=== PATIENT | female | born 1945 | race Caucasian/White ===

== ENCOUNTER 2017-01-26 04:13 | Inpatient (IN) ==
--- NOTE | 2017-01-26 04:42 | Emergency Department Note ---
Neuro HPI - General Chief Complaint: Neuro Symptoms/Deficit Stated Complaint: stroke like symptoms Time Seen by Provider: 01/26/17 04:26 Source: family Mode of arrival: ambulatory Limitations: no limitations - History of Present Illness HPI Narrative: 71-year-old female with a 2 and half days history of neurologic deficit. Started 2-1/2 days ago with generalized weakness such that she could not get up ; also urinary incontinence. Her significant other called her doctor, Dr. Mini Man at [facility] and discussed her symptoms - they felt this was not consistent with a stroke but could be flu so Tamiflu was called out. At that time she wasn't having a focal deficit but just generalized weakness. He continued to take care of her, getting her in and out of bed, and she gradually improved such that yesterday evening she was walking again with a walker. However this morning at 3 AM she woke up shivering asking for blankets. She was visually hallucinating and continues. And so he brought her in for further evaluation. I do not have a complete med list but patient says she is not on a blood thinner - Related Data Home Medications: Home Medications Medication Instructions Recorded Confirmed Atenolol [Tenormin] 100 mg PO QDAY 09/08/15 09/08/15 Fluoxetine Unknown Dose 09/08/15 Furosemide Unknown Dose 09/08/15 Gabapentin [Neurontin] 500 mg PO Q8 09/08/15 09/08/15 Levothyroxine [Synthroid] 75 mcg PO DAILY 09/08/15 09/08/15 Omeprazole [PriLOSEC] 20 mg PO ACB 09/08/15 09/08/15 Allergies/Adverse Reactions: Allergies Allergy/AdvReac Type Severity Reaction Status Date / Time No Known Drug Allergies Allergy Verified 09/16/16 12:44 Review of Systems All systems ED: reviewed and negative except as stated. Past Medical History - Past Medical History Attestation: Yes: The following information was validated with the patient. Medical history: Reports: GERD, hypertension, thyroid disease Surgical history ED: Reports: appendectomy - Social History smoking status: Never smoker Physical Exam No acute distress resting comfortably. Normocephalic atraumatic. Conjunctiva clear sclerae white and anicteric. Pupils are equal round reactive to light and accommodation. Extraocular movements are intact. I did test this twice the first time she failed, and could not follow commands neglecting her left. However on repeat check she was able to do this. No nystagmus on either try. No nasal discharge or congestion. Oropharynx is pink and moist. Top dentures. I don't hear any dysarthria except for secondary to dentures. She may have a slight left facial droop but this is equivocal. Neck is supple without lymphadenopathy or thyromegaly. No carotid bruit. Heart is regular rate and rhythm no murmurs appreciated. Lungs are clear to auscultation bilaterally without wheezes rales rhonchi or respiratory distress. Abdomen soft nontender nondistended. No peritoneal signs or guarding. No pedal edema. +2 radial pulse. Alert and oriented to person but not time- she cannot tell me the month or date correctly the first time I checked however on repeat exam she gets it right. She does know who the president is. She is hallucinating here- seeing some things that aren't there. Additionally there are a few examples of her talking nonsensically. She is grossly weak but she is able lift both legs at the hip and knee- left side weaker than the right. She does have some ataxia, once again left worse than right. Finger-nose is worse on the left but both sides are generally normal. Bilateral shear setter are weak left worse than right. Nursing staff reports an NIH of 7 - General Limitations: no limitations Course Vital Signs Temperature 98.1 F 01/26/17 04:14 Pulse Rate 80 01/26/17 04:14 Respiratory Rate 17 01/26/17 04:14 Pulse Oximetry (%) 90 01/26/17 04:14 Temperature 98.1 F 01/26/17 04:14 Pulse Rate 78 01/26/17 06:05 Respiratory Rate 26 H 01/26/17 06:05 Blood Pressure 106/47 01/26/17 06:05 Pulse Oximetry (%) 95 01/26/17 06:05 Neuro Symptoms/Deficit - Lab Data Lab results reviewed: Yes I reviewed the patient's lab results. Result diagrams: 01/26/17 04:30 01/26/17 04:36 Lab Results 01/26/17 01/26/17 01/26/17 Range/Units 04:30 04:30 04:30 WBC 14.5 H (4.5-11.0) K/mcL RBC 3.84 L (4.00-5.20) M/mcL Hgb 12.7 (12.0-15.0) g/dL Hct 38.1 (36.0-48.0) % MCV 99.2 (80.0-100.0) fL MCH 33.0 (26.0-34.0) pg MCHC 33.3 (31.0-36.0) g/dL RDW 14.8 H (11.5-14.5) % Plt Count 268 (140-440) K/mcL MPV 7.8 (7.4-10.4) fL Gran % 93.2 H (38.0-78.0) % Lymph % (Auto) 3.1 L (15.5-49.0) % Story % (Auto) 3.3 (1.0-12.0) % Eos % (Auto) 0.4 (0.0-7.0) % Baso % (Auto) 0 (0.0-2.0) % Gran # 13.5 H (1.8-8.0) K/mcL Lymph # 0.5 L (1.5-4.8) K/mcL Story # 0.5 (0.1-0.9) K/mcL Eos # 0.1 (0.0-0.7) K/mcL Baso # 0 (0.0-0.3) K/mcL POC PT (11.9-14.5) sec PT 16.3 H (11.9-14.5) sec POC INR (0.9-1.2) INR 1.3 H (0.9-1.1) APTT 45 H (20-37) sec VBG Lactic Acid (0.5-2.2) mmol/L Sodium Not Reportable Potassium Not Reportable Chloride Not Reportable Carbon Dioxide Not Reportable Anion Gap Not Reportable BUN Not Reportable Creatinine Not Reportable GFR Calculation Not Reportable Glucose TNP Calcium Not Reportable Total Bilirubin (0.0-1.0) mg/dL AST (0-37) U/l ALT (0-40) U/l Alkaline Phosphatase (39-117) U/L Ammonia (11-51) mcmol/L Total Protein (5.9-8.4) gm/dL Albumin (3.2-5.2) gm/dL Globulin (2.2-3.7) gm/dL Albumin/Globulin Ratio (1.0-2.3) TSH (0.27-5.01) uIU/ml Hold Red Top Not Reportable Urine Color Urine Appearance Urine pH (5.0-9.0) Ur Specific Gilman (1.000-1.035) Urine Protein (NEG) mg/dL Urine Glucose (UA) (NEG) mg/dL Urine Ketones (NEG) mg/dL Urine Occult Blood (<0.03) mg/dL Urine Nitrate (NEG) Urine Bilirubin (NEG) mg/dL Urine Urobilinogen (NEG) mg/dL Ur Leukocyte Esterase (NEG) /uL Urine RBC (0-1) /hpf Urine WBC (0-4) /hpf Ur Squamous Epith Cells (0-4) /hpf Ur Transition Epith Cell (0-2) /hpf Amorphous Crystals (0) /hpf Urine Bacteria (0) /hpf Ur Culture Indicated? 01/26/17 01/26/17 01/26/17 Range/Units 04:30 04:36 05:08 WBC (4.5-11.0) K/mcL RBC (4.00-5.20) M/mcL Hgb (12.0-15.0) g/dL Hct (36.0-48.0) % MCV (80.0-100.0) fL MCH (26.0-34.0) pg MCHC (31.0-36.0) g/dL RDW (11.5-14.5) % Plt Count (140-440) K/mcL MPV (7.4-10.4) fL Gran % (38.0-78.0) % Lymph % (Auto) (15.5-49.0) % Story % (Auto) (1.0-12.0) % Eos % (Auto) (0.0-7.0) % Baso % (Auto) (0.0-2.0) % Gran # (1.8-8.0) K/mcL Lymph # (1.5-4.8) K/mcL Story # (0.1-0.9) K/mcL Eos # (0.0-0.7) K/mcL Baso # (0.0-0.3) K/mcL POC PT 13.8 (11.9-14.5) sec PT (11.9-14.5) sec POC INR 1.2 (0.9-1.2) INR (0.9-1.1) APTT (20-37) sec VBG Lactic Acid (0.5-2.2) mmol/L Sodium 134 Potassium 4.1 Chloride 92 L Carbon Dioxide 25 Anion Gap 17.0 H BUN 31 H Creatinine 1.7 H GFR Calculation 30 Glucose 136 H Calcium 8.6 Total Bilirubin 1.0 (0.0-1.0) mg/dL AST 80 H (0-37) U/l ALT 43 H (0-40) U/l Alkaline Phosphatase 96 (39-117) U/L Ammonia (11-51) mcmol/L Total Protein 6.7 (5.9-8.4) gm/dL Albumin 3.7 (3.2-5.2) gm/dL Globulin 3.0 (2.2-3.7) gm/dL Albumin/Globulin Ratio 1.2 (1.0-2.3) TSH 3.38 (0.27-5.01) uIU/ml Hold Red Top Urine Color Aileen Urine Appearance Cloudy Urine pH 5.0 (5.0-9.0) Ur Specific Gilman 1.012 (1.000-1.035) Urine Protein 100 A (NEG) mg/dL Urine Glucose (UA) Negative (NEG) mg/dL Urine Ketones Neg (NEG) mg/dL Urine Occult Blood 0.2 A (<0.03) mg/dL Urine Nitrate Neg (NEG) Urine Bilirubin Neg (NEG) mg/dL Urine Urobilinogen Neg (NEG) mg/dL Ur Leukocyte Esterase 250 A (NEG) /uL Urine RBC 11 H (0-1) /hpf Urine WBC > 182 H (0-4) /hpf Ur Squamous Epith Cells < 1 (0-4) /hpf Ur Transition Epith Cell 1 (0-2) /hpf Amorphous Crystals Few A (0) /hpf Urine Bacteria Few A (0) /hpf Ur Culture Indicated? Yes 01/26/17 01/26/17 Range/Units 05:10 05:10 WBC (4.5-11.0) K/mcL RBC (4.00-5.20) M/mcL Hgb (12.0-15.0) g/dL Hct (36.0-48.0) % MCV (80.0-100.0) fL MCH (26.0-34.0) pg MCHC (31.0-36.0) g/dL RDW (11.5-14.5) % Plt Count (140-440) K/mcL MPV (7.4-10.4) fL Gran % (38.0-78.0) % Lymph % (Auto) (15.5-49.0) % Story % (Auto) (1.0-12.0) % Eos % (Auto) (0.0-7.0) % Baso % (Auto) (0.0-2.0) % Gran # (1.8-8.0) K/mcL Lymph # (1.5-4.8) K/mcL Story # (0.1-0.9) K/mcL Eos # (0.0-0.7) K/mcL Baso # (0.0-0.3) K/mcL POC PT (11.9-14.5) sec PT (11.9-14.5) sec POC INR (0.9-1.2) INR (0.9-1.1) APTT (20-37) sec VBG Lactic Acid 1.5 (0.5-2.2) mmol/L Sodium Potassium Chloride Carbon Dioxide Anion Gap BUN Creatinine GFR Calculation Glucose Calcium Total Bilirubin (0.0-1.0) mg/dL AST (0-37) U/l ALT (0-40) U/l Alkaline Phosphatase (39-117) U/L Ammonia 38 (11-51) mcmol/L Total Protein (5.9-8.4) gm/dL Albumin (3.2-5.2) gm/dL Globulin (2.2-3.7) gm/dL Albumin/Globulin Ratio (1.0-2.3) TSH (0.27-5.01) uIU/ml Hold Red Top Urine Color Urine Appearance Urine pH (5.0-9.0) Ur Specific Gilman (1.000-1.035) Urine Protein (NEG) mg/dL Urine Glucose (UA) (NEG) mg/dL Urine Ketones (NEG) mg/dL Urine Occult Blood (<0.03) mg/dL Urine Nitrate (NEG) Urine Bilirubin (NEG) mg/dL Urine Urobilinogen (NEG) mg/dL Ur Leukocyte Esterase (NEG) /uL Urine RBC (0-1) /hpf Urine WBC (0-4) /hpf Ur Squamous Epith Cells (0-4) /hpf Ur Transition Epith Cell (0-2) /hpf Amorphous Crystals (0) /hpf Urine Bacteria (0) /hpf Ur Culture Indicated? Urinalysis [facility] care dipstick shows large amount of blood and moderate leukocytes and specific gravity 1.020 point of care INR shows 1.2 - Radiology Data Radiology results reviewed: Yes I reviewed the patient's radiology results. CT scan of the head shows no acute intracranial pathology - EKG Data EKG attestation: Yes I reviewed and interpreted this EKG. EKG results narrative: EKG shows a rate of 78 normal sinus rhythm no evidence of ischemia Disposition Clinical Impression: Delirium, Dehydration, Elevated liver enzymes UTI (urinary tract infection) Qualifiers: Urinary tract infection type: acute cystitis Hematuria presence: with hematuria Qualified Code(s): N30.01 - Acute cystitis with hematuria Acute kidney failure Qualifiers: Acute renal failure type: unspecified Qualified Code(s): N17.9 - Acute kidney failure, unspecified Summary: Initially worked up for possible stroke as cause of her altered mental status and weakness. Laboratory EKG and CT scan of the head without contrast done. Urinalysis shows leukocytes and blood consistent with possible UTI; elevated white count. Start Rocephin. Laboratory shows elevated creatinine and in conjunction with the dark urine suspect acute renal failure from dehydration. Start IV fluids per sepsis protocol 3 L normal saline- no history of heart failure CT scan and EKG are negative. Laboratory shows elevated liver enzymes as well, however I do not have comparison. Discussed situation with Dr. Kimble who agreed to accept patient as inpatient on telemetry for IV fluids and antibiotics for following diagnoses- uTI with altered mental status, dehydration, acute kidney injury and elevated liver enzymes Disposition: Xfer As Inpt ([facility]) Condition: Fair Referrals: Mini Man MD [Primary Care Provider] -
[2017-01-26 05:12] LABS: Basophils # (Auto) 0 K/mcL (0.0-0.3); Basophils % (Auto) 0 % (0.0-2.0); Eosinophils # (Auto) 0.1 K/mcL (0.0-0.7); Eosinophils % (Auto) 0.4 % (0.0-7.0); Granulocytes % (Auto) 93.2 % (38.0-78.0); Lymphocytes # (Auto) 0.5 K/mcL (1.5-4.8); Lymphocytes % (Auto) 3.1 % (15.5-49.0); Mean Cell Volume 99.2 fL (80.0-100.0); Mean Corpuscular HGB Conc 33.3 g/dL (31.0-36.0); Monocytes # (Auto) 0.5 K/mcL (0.1-0.9); Monocytes % (Auto) 3.3 % (1.0-12.0); Platelet Count 268 K/mcL (140-440); RBC 3.84 M/mcL (4.00-5.20); Red Cell Distribution Width 14.8 % (11.5-14.5)
[2017-01-26] MEDS ORDERED: cefTRIAXone 1 GM in DEXTROSE 5% IN WATER 50 ML IV ONE (05:25)
[2017-01-26 05:27] LABS: ALT/SGPT 43 U/l (0-40); Albumin 3.7 gm/dL (3.2-5.2); Albumin/Globulin Ratio 1.2 (1.0-2.3); Alkaline Phosphatase 96 U/L (39-117); Blood Urea Nitrogen 31 mg/dl (8-23)
[2017-01-26] MEDS ORDERED: 0.9 % SODIUM CHLORIDE 1,000 ML IV ONE ×2 (05:36→08:20)
[2017-01-26 05:58] LABS: Appearance,Urine CLOUDY; Bacteria,Urine FEW /hpf (0); Bilirubin,Urine NEG (NEG); Color,Urine AMBER; Glucose,Urine (UA) NEGATIVE (NEG); Leukocyte Esterase,Urine 250 /uL (NEG); Nitrate,Urine NEG (NEG); Protein,Urine 100 mg/dL (NEG); Specific Gravity,Urine 1.012 (1.000-1.035); Urine Amorphous Crystals FEW /hpf (0); Urine Blood 0.2 mg/dL (<0.03); Urine RBC 11 /hpf (0-1); Urine Squamous Epithelial Cell < 1 /hpf (0-4); Urine Transitional Epi Cells 1 /hpf (0-2); Urine WBC > 182 /hpf (0-4); Urobilinogen,Urine NEG (NEG)
[2017-01-26] MEDS ORDERED: 0.9 % SODIUM CHLORIDE 2,000 ML IV ONE (06:11)
[2017-01-26] MEDS ORDERED: ONDANSETRON 4 MG/2 ML VIAL IV PRN ×2 (06:24→08:17)
[2017-01-26] MEDS ORDERED: ACETAMINOPHEN 325 MG TABLET PO PRN ×2 (06:24→08:17)
[2017-01-26] MEDS ORDERED: 0.9 % SODIUM CHLORIDE 1,000 ML IV SCH (06:30)
[2017-01-26] MEDS ORDERED: cefTRIAXone 1 GM in DEXTROSE 5% IN WATER 50 ML IV SCH (06:30)
--- NOTE | 2017-01-26 07:54 | Cat Scan Report ---
History: Acute stroke symptoms Findings: The brain was imaged without contrast at 2.5 mm intervals. Mild generalized cerebral atrophy is present. The ventricles are prominent. Along the inferior border of the left globus pallidus a 5 mm low-attenuation structure is present which has CSF density. Mild patchy periventricular white matter hypodensities are present in the frontal and parietal lobes. No cortical infarct is detected. There is no hemorrhage or mass effect. No abnormal extra-axial fluid collection is present. The visualized sinuses are clear. Impression: Small old lacunar infarct versus large perivascular space along the inferior border of the left globus pallidus. No evidence of acute infarct. Mild age-related degenerative changes Interpreted and Authenticated by: Kalpesh Argueta 01/26/17
--- NOTE | 2017-01-26 08:10 | XRay Report ---
HISTORY: Reason for Exam:weakness FINDINGS: Mildly prominent increased interstitial lung markings are present in both lung bases and lateral to the right upper hilum. I have no prior study for comparison. Lung volumes are normal and there is no consolidating infiltrate, mass or pleural effusion. The heart size is normal. IMPRESSION: Mild interstitial lung disease bilaterally. This could either be due to an active inflammatory process or mild pulmonary fibrosis. Interpreted and Authenticated by: Kalpesh Argueta 01/26/17
[2017-01-26] MEDS ORDERED: VASOPRESSIN 20 UNIT in DEXTROSE 5% IN WATER 99 ML IV PRN (08:17)
[2017-01-26] MEDS ORDERED: MAGNESIUM SULFATE 2 GM/50 ML BAG IV PRN (08:17)
[2017-01-26] MEDS ORDERED: POTASSIUM CHLORIDE 20 MEQ PACKET PO PRN (08:17)
[2017-01-26] MEDS ORDERED: LEVOFLOXACIN 750 MG/150 ML BAG IV SCH (09:00)
[2017-01-26] MEDS: NOREPINEPHRINE BITARTRATE 16 MG in 0.9 % SODIUM CHLORIDE 234 ML IV SCH (09:03)
[2017-01-26] MEDS: DOCUSATE SODIUM 100 MG CAPSULE PO SCH ×2 (09:11→19:39)
[2017-01-26] MEDS: MULTIVIT,THER IRON,CA,FA & MIN 1 TABLET PO SCH (09:11)
--- NOTE | 2017-01-26 09:12 | Ultrasound Report ---
History: Urinary tract infection with elevated the liver and creatinine Findings: The patient was technically difficult to scan due to large body habitus. The right kidney measures 5.0 x 5.6 x 10.9 cm and the left measures 5.3 x 4.7 x 11.3 cm. There is an 8 x 10 mm exophytic cyst located laterally in the upper third of the left kidney. No mass is seen in either kidney and there is no evidence of a stone or hydronephrosis. No perinephric fluid collection is present. Renal parenchyma is normal in thickness but may be mildly echogenic. However, this is an indeterminate finding due to suboptimal image quality related to patient body habitus. The urinary bladder is decompressed by Mo catheter. Impression: Limited exam showing no evidence of urinary tract obstruction or gross evidence of pyelonephritis Interpreted and Authenticated by: Kalpesh Argueta 01/26/17
[2017-01-26 09:36] LABS: C-Reactive Protein 20.7 mg/dl (0.0-0.8)
[2017-01-26] MEDS: 0.9 % SODIUM CHLORIDE 1,000 ML IV SCH ×3 (10:10→22:25)
[2017-01-26] MEDS: PIPERACILLIN SODIUM/TAZOBACTAM 2.25 GM in DEXTROSE 5% IN WATER 50 ML IV SCH ×4 (10:20→23:40)
[2017-01-26] MEDS: HEPARIN 5,000 UNIT/ML VIAL SQ SCH ×2 (12:14→22:13)
[2017-01-26] MEDS ORDERED: IPRATROPIUM/ALBUTEROL 3 ML AMPUL.NEB NEB PRN (15:56)
[2017-01-26] MEDS: 0.9 % SODIUM CHLORIDE 10 ML SYRINGE IV SCH ×2 (15:58→22:13)
[2017-01-26] MEDS ORDERED: IPRATROPIUM/ALBUTEROL 3 ML AMPUL.NEB NEB ONE (16:00)
[2017-01-26] MEDS: THIAMINE 100 MG in 0.9 % SODIUM CHLORIDE 50 ML IV SCH (16:26)
[2017-01-26] MEDS ORDERED: PANTOPRAZOLE 40 MG VIAL IV SCH (17:00)
--- NOTE | 2017-01-26 17:10 | History and Physical Report ---
DATE OF ADMISSION: 01/26/2017 DATE OF ADMISSION: 01/26/2017 REASON FOR ADMISSION: Weakness, mental status change, stroke symptoms. HISTORY OF CHIEF COMPLAINT: Sylvia is a 71-year-old who was brought in to [facility] ER with above symptoms that started roughly three days prior to presentation. The patient has progressed with increasing malaise, weakness, lethargy, and mental status change. The patient has been essentially nonverbal. She lives with her . She usually consumes 6 to 8 drinks of whiskey every day; however, per , she has not had any other recent change in medications. She does not indulge in opioids or narcotics. She has not had fevers, shaking chills, diarrhea, dysuria. With increasing concerns, primary care physician was consulted and she was referred to [facility] ER. Initial workup was significant for pyuria along with sepsis with white count 14,500, low blood pressures in the 90s, along with renal insufficiency with creatinine of 1.7. Hospitalist Service was consulted. At the time of examination, the patient is minimally responsive. Most of the history was obtained from review of medical records. Per history of her significant other, the patient has had hallucinations along with shivering since this morning. PAST MEDICAL HISTORY: 1. Neuropathy. 2. Anxiety disorder. 3. Hypertension. 4. Hypothyroidism 5. GERD. 6. Alcohol dependence. CURRENT MEDICATIONS: Budesonide enteric coated 3 mg daily. Gabapentin 600 3 times daily. Fluoxetine 60. Furosemide 20. Atenolol 100. Levothyroxine 88. Omeprazole 20. Ascorbic acid 1000. Multivitamin 1 tab. ALLERGIES: NONE SIGNIFICANT. SOCIAL HISTORY: No history of smoking but no further history could be obtained. She drinks 6 to 8 drinks a day of whiskey. CODE STATUS: FULL CODE. FAMILY HISTORY: Could not be obtained. PHYSICAL EXAMINATION: GENERAL: The patient is minimally responsive. BMI 26. Height 5 feet 7 inches. VITAL SIGNS: Blood pressure , respiration rate 26, temperature 97.8, pulse 78, sats 95 percent on 3 liters of oxygen. HEENT: Pupils symmetric. Oral cavity is dry. No ear or nose discharge. Head is normocephalic and atraumatic. NECK: No lymphadenopathy. CHEST: S1, S2, regular rhythm. ESM grade 1. Diminished breath sounds at bases. ABDOMEN: Soft and nontender. LOWER EXTREMITIES: No cyanosis or clubbing. No joint swelling. SKIN: No suspicious lesion. Dry skin with xerosis. PSYCHIATRIC: Minimally responsive, fatigued, lethargic, but no agitation. NEUROLOGIC: Could not be performed. NIH score 7. GCS score 12. LABS AND IMAGING: Sodium 131, potassium 4.1, creatinine 1.7, BUN 31, CRP 20. UA significant for pyuria along with bacteriuria. Lactic acid 1.5, INR 1.3, APTT 45. White count 14.5, hemoglobin 12.7, platelets 268, ESR 61, over 10 percent bands. ASSESSMENT AND PLAN: A 71-year-old admitted with complicated urinary tract infection/severe sepsis. 1. Septic shock. Start pressors. Continue crystalloids. Monitor renal function. Check central venous oxygen sats and trend lactic acid. Empiric broad antibiotic coverage initiated and will deescalate based on cultures. 2. Mental status change secondary to sepsis, end-organ dysfunction. Continue close monitoring. Continue crystalloids. 3. Complicated urinary tract infection. Renal ultrasound to rule out obstructive uropathy. Antibiotic coverage and cultures. 4. Prior medical issues. Will restart on home meds once patient is able to tolerate orally and improve mental status. 5. History of alcohol dependence, high risk of delirium tremens. Continue close monitoring. Thiamine/multivitamin. 6. Acute renal failure secondary to sepsis and end-organ dysfunction. Continue close monitoring of renal function. PLAN FOR TODAY: 1. Admit as inpatient. 2. Vasopressors, lactic acid monitoring. 3. Crystalloids. 4. IV thiamine. 5. Renal ultrasound. 6. Broad antibiotic coverage. Overall, a high-complexity admit with ATMAUTLUAK score 17 signifying high risk mortality in light of septic shock with multiorgan dysfunction and renal failure. TOTAL TIME SPENT: Over 55 minutes on history and physical, on review of records and discussion with ER physician. In addition, 35 minutes critical care time spent on stabilizing patient, septic shock management, reviewing labs and imaging, and transferring to ICU. AA:[email or web address] Job ID: [id number] Doc ID: [id number] Riki KAUFMAN
[2017-01-26] MEDS ORDERED: SENNOSIDES/DOCUSATE SODIUM 1 TAB TABLET PO SCH (21:00)
[2017-01-27] MEDS: PIPERACILLIN SODIUM/TAZOBACTAM 2.25 GM in DEXTROSE 5% IN WATER 50 ML IV SCH ×4 (05:11→23:45)
[2017-01-27] MEDS: 0.9 % SODIUM CHLORIDE 10 ML SYRINGE IV SCH ×3 (05:11→21:07)
[2017-01-27 05:33] LABS: Mean Cell Volume 101.1 fL (80.0-100.0); Mean Corpuscular Hemoglobin 33.4 pg (26.0-34.0); Platelet Count 195 K/mcL (140-440); RBC 3.38 M/mcL (4.00-5.20); Red Cell Distribution Width 14.5 % (11.5-14.5)
[2017-01-27] MEDS: 0.9 % SODIUM CHLORIDE 1,000 ML IV SCH (05:39)
[2017-01-27 06:07] LABS: ALT/SGPT 85 U/l (0-40); Albumin 2.9 gm/dL (3.2-5.2); Albumin/Globulin Ratio 0.9 (1.0-2.3); Alkaline Phosphatase 99 U/L (39-117); Bilirubin,Direct 0.4 mg/dL (0.0-0.3); Blood Urea Nitrogen 32 mg/dl (8-23); Gamma Glutamyl Transpeptidase 55 U/L (5-36); Magnesium 1.6 mg/dL (1.6-2.5); Uric Acid 6.9 mg/dL (2.5-8.0)
[2017-01-27 06:49] LABS: Band Neutrophils % 10 % (0-10); Lymphocytes % 6 % (15-49); Macrocytosis 1+ (NONE SEEN); Monocytes % (Manual) 3 % (1-12); Platelet Estimate NORMAL (NORMAL); RBC Morphology ABNORM (NORMAL); Segmented Neutrophils % 81 % (38-78)
[2017-01-27] MEDS ORDERED: PANTOPRAZOLE 40 MG TABLET PO SCH (07:30)
[2017-01-27] MEDS: NOREPINEPHRINE BITARTRATE 16 MG in 0.9 % SODIUM CHLORIDE 234 ML IV SCH (07:34)
[2017-01-27] MEDS: HEPARIN 5,000 UNIT/ML VIAL SQ SCH ×2 (09:28→21:06)
[2017-01-27] MEDS: THIAMINE 100 MG in 0.9 % SODIUM CHLORIDE 50 ML IV SCH (09:33)
[2017-01-27] MEDS: MULTIVIT,THER IRON,CA,FA & MIN 1 TABLET PO SCH (09:33)
[2017-01-27] MEDS: DOCUSATE SODIUM 100 MG CAPSULE PO SCH ×2 (09:38→21:06)
--- NOTE | 2017-01-27 10:11 | Internal Med Progress Note ---
Medical - PN: Subj Patient information: Note initiated : 01/27/17 at 10:08 am Service Date, if different from initiated Date: [] Patient: Sylvia Tucker 71 y/o F admitted on 01/26/17 for stroke like symptoms. Chief Complaint: [] Interval history: 01/26- patient admitted with mental status change and weakness and septic shock. complicated UTI. Started on broad antibiotic coverage pressors after 3 L crystalloids. Patient admitted to ICU. History of underlying chronic alcoholism. white count at 14.5 with creatinine 1.7. significant pyuria. GNR on urine culture. ABG 7.42/32/68 on 3 L oxygen. EKG normal sinus. cT head unremarkable except for old lacunar infarct. 01/27-patient off pressors. Doing better. Systolics at goal. Good urine output. GNR on culture. White count downtrending at 11.3. Creatinine 1.7. stable hemodynamics sats 96% on 1 L. renal ultrasound negative with no evidence of pyelonephritis/obstructive uropathy. transfer to medical floor. No overnight fever chills CP/SOB or concerns per staff except for alcohol withdrawals. She is currently on oral alcohol every 6 hour to prevent withdrawal symptoms. - Constitutional Vitals: Vital Signs Temp Pulse Resp BP Pulse Ox 98.1 F 79 25 H 137/81 96 01/27/17 04:00 01/26/17 20:00 01/27/17 04:00 01/27/17 04:00 01/27/17 04:00 Period Temp Pulse Resp BP Sys/Esqueda Pulse Ox Last 24 Hr 97.9 F-98.6 F 70-91 - 123-153/55-81 93-99 Intake and Output 01/26/17 01/27/17 01/27/17 21:59 05:59 13:59 Intake Total 151 / 151 2132 / 2132 50 / 50 Output Total 385 / 385 430 / 430 460 / 460 Balance -234 / -234 1703 / 1703 -410 / -410 Weight 172 lb 6.4 oz Intake & Output: Intake & Output 01/26/17 01/27/17 01/27/17 21:59 05:59 13:59 Intake Total 151 / 151 2132 50 / 50 Output Total 385 / 385 430 / 430 460 / 460 Balance -234 / -234 1703 / 1703 -410 / -410 Weight 172 lb 6.4 oz Intake: IV 151 / 151 1773 / 1773 50 / 50 Sodium Chloride 0.9% 1, 1723 / 1723 000 ml @ 100 mls/hr IV . Q10H [facility] Rx#:[id number] Zosyn 2.25 gm In Dextrose 100 / 100 50 / 50 50 / 50 5% in Water 50 ml @ 100 mls/hr IV Q6H [facility] Rx#: [id number] Vitamin B1 100 mg In 51 / 51 Sodium Chloride 0.9% 50 ml @ 50 mls/hr IV DAILY [facility] Rx#:[id number] Oral 360 / 360 Output: Urine Catheter Amount 385 / 385 430 / 430 60 / 60 Stool 400 / 400 Other: # Bowel Movements 1 2 General appearance: cooperative, no acute distress Exam: alert oriented nonlabored breathing nondistended abdomen No lymphedema slight pper extremity tremor Medical - PN: Obj Da - Labs CBC & Chem 7: 01/27/17 04:30 01/27/17 04:30 Labs: Abnormal Lab Results 01/27/17 01/27/17 01/26/17 04:30 04:30 08:39 WBC 11.3 H RBC 3.38 L Hgb 11.3 L Hct 34.2 L MCV 101.1 H Seg Neutrophils % 81 H Lymphocytes % 6 L RBC Morphology Abnorm A Macrocytosis 1+ A ESR Carbon Dioxide 21 L BUN 32 H Creatinine 1.7 H Calcium 7.6 L Direct Bilirubin 0.4 H GGT 55 H AST 179 H ALT 85 H Lactate Dehydrogenase 392 H C-Reactive Protein 20.7 H Albumin 2.9 L Albumin/Globulin Ratio 0.9 L 01/26/17 08:39 WBC RBC Hgb Hct MCV Seg Neutrophils % Lymphocytes % RBC Morphology Macrocytosis ESR 66 H Carbon Dioxide BUN Creatinine Calcium Direct Bilirubin GGT AST ALT Lactate Dehydrogenase C-Reactive Protein Albumin Albumin/Globulin Ratio Meds: Medications Acetaminophen (Tylenol) 650 mg PO Q4-6HP PRN PRN Reason: PAIN/FEVER > 101 Last Admin: 01/27/17 05:39 Dose: 650 mg Albuterol/Ipratropium (Duoneb) 3 ml NEB Q4HP PRN PRN Reason: Shortness Of Breath Docusate Sodium (Colace) 100 mg PO BID [facility] Last Admin: 01/27/17 09:38 Dose: Not Given Heparin Sodium (Porcine) (Heparin) 5,000 unit SQ Q12 [facility] Last Admin: 01/27/17 09:28 Dose: 5,000 unit Levofloxacin (Levaquin) 750 mg in 150 mls @ 100 mls/hr IV Q48H [facility] Last Infusion: 01/26/17 10:11 Dose: Infused Magnesium Sulfate (Magnesium Sulfate) 2 gm in 50 mls @ 50 mls/hr IV UD PRN PRN Reason: MG = or < 1.7 Norepinephrine Bitartrate 16 (mg/ Sodium Chloride) 250 mls @ 9.37 mls/hr IV Q24H [facility]; 10 MCG/MIN PRN Reason: Protocol Last Admin: 01/27/17 07:34 Dose: Not Given Sodium Chloride (Sodium Chloride 0.9%) 1,000 mls @ 100 mls/hr IV .Q10H [facility] Stop: 01/27/17 14:16 Last Admin: 01/27/17 05:39 Dose: 100 mls/hr Piperacillin Sod/Tazobactam (Sod 2.25 gm/ Dextrose) 50 mls @ 100 mls/hr IV Q6H [facility] Last Infusion: 01/27/17 06:34 Dose: Infused Vasopressin 20 unit/ Dextrose 100 mls @ 12 mls/hr IV Q8HP PRN; Protocol; 0.04 UNIT/MIN PRN Reason: Hypotension Thiamine HCl 100 mg/ Sodium (Chloride) 51 mls @ 50 mls/hr IV DAILY [facility] Stop: 01/28/17 10:02 Last Admin: 01/27/17 09:33 Dose: 50 mls/hr Iron Carb/Multivit/Leith/Folic Acid (Multivitamin W/Minerals) 1 tab PO DAILY [facility] Last Admin: 01/27/17 09:33 Dose: 1 tab Ondansetron HCl (Zofran) 4 mg IV Q4-6HP PRN PRN Reason: Nausea And Vomiting Pantoprazole Sodium (Protonix) 40 mg PO QAMAC [facility] Last Admin: 01/27/17 07:10 Dose: 40 mg Potassium Chloride (Klor-Con) 40 meq PO DAILYP PRN PRN Reason: K+ < 3.5 Senna/Docusate Sodium (Senna Plus Tablet) 1 tab PO HS [facility] Last Admin: 01/26/17 19:39 Dose: Not Given Sodium Chloride (Saline Flush) 10 ml IV Q8 [facility] Last Admin: 01/27/17 05:11 Dose: 10 ml Medical - PN: A/P - Time Spent With Patient Total time spent is greater than 50% in coordination of care (as documented) at patient's floor/unit and/or counseling patient: 25 - 35 minutes (1) Septic shock Status: Acute Assessment and plan: * complicated GNR UTI-n antibiotic coverage. Await cultures. Negative renal ultrasound * Septic shock secondary to gram-negative bacteria- cultures pending. On broad antibiotic coverage. Off pressors. Stable hemodynamics. Transfer to medical floor * alcohol withdrawals-continue oral alcohol/IV thiamine. * History of hypertension-may restart antihypertensive once hemodynamics stable and systolics over 140 for at least 12-24 hours * anxiety disorder on fluoxetine * neuropathy on gabapentin * Hypothyroidism on thyroxine * GERD on PPI * Full CODE STATUS Plan * Continue antibiotic coverage and de-escalate based on sensitivities * Transfer to medical floor * oral alcohol to Counter alcohol withdrawal * restart antihypertensives in 24 hours with holding parameters * pre-existing medical condition management as above * Possible discharge in 24-48 hours Current Visit: Yes Medical - PN: Qual - Stroke Onset of Symptoms Date: 01/26/17 Onset of Symptoms Time: 05:00 Symptom Onset Unknown: Yes - VTE Deep Vein Thrombosis/Pulmonary Embolism Present on Admission: No
[2017-01-27] MEDS ORDERED: MAGNESIUM SULFATE 2 GM/50 ML BAG IV PRN (10:46)
[2017-01-27] MEDS ORDERED: ACETAMINOPHEN 325 MG TABLET PO PRN (10:46)
[2017-01-27] MEDS ORDERED: ONDANSETRON 4 MG/2 ML VIAL IV PRN (10:46)
[2017-01-27] MEDS ORDERED: POTASSIUM CHLORIDE 20 MEQ PACKET PO PRN (10:46)
[2017-01-27] MEDS ORDERED: IPRATROPIUM/ALBUTEROL 3 ML AMPUL.NEB NEB PRN (10:46)
[2017-01-27] MEDS: LORazepam 2 MG/ML VIAL IV PRN ×2 (16:08→22:22)
[2017-01-27] MEDS: SENNOSIDES/DOCUSATE SODIUM 1 TAB TABLET PO SCH (21:06)
[2017-01-27] MEDS: TEMAZEPAM 15 MG CAPSULE PO PRN ×2 (21:06→22:22)
[2017-01-28 05:32] LABS: Mean Cell Volume 100.8 fL (80.0-100.0); Mean Corpuscular HGB Conc 32.8 g/dL (31.0-36.0); Mean Corpuscular Hemoglobin 33.1 pg (26.0-34.0); Platelet Count 195 K/mcL (140-440); RBC 3.19 M/mcL (4.00-5.20); Red Cell Distribution Width 14.4 % (11.5-14.5)
[2017-01-28 05:38] LABS: ALT/SGPT 157 U/l (0-40); Albumin 2.3 gm/dL (3.2-5.2); Albumin/Globulin Ratio 0.8 (1.0-2.3); Alkaline Phosphatase 130 U/L (39-117); Bilirubin,Direct 0.3 mg/dL (0.0-0.3); Blood Urea Nitrogen 31 mg/dl (8-23); Gamma Glutamyl Transpeptidase 81 U/L (5-36); Magnesium 1.7 mg/dL (1.6-2.5)
[2017-01-28] MEDS: PIPERACILLIN SODIUM/TAZOBACTAM 2.25 GM in DEXTROSE 5% IN WATER 50 ML IV SCH ×3 (05:55→17:42)
[2017-01-28] MEDS: 0.9 % SODIUM CHLORIDE 10 ML SYRINGE IV SCH ×3 (05:55→20:12)
[2017-01-28 06:26] LABS: Band Neutrophils % 18 % (0-10); Lymphocytes % 10 % (15-49); Macrocytosis 1+ (NONE SEEN); Monocytes % (Manual) 5 % (1-12); Platelet Estimate NORMAL (NORMAL); RBC Morphology ABNORM (NORMAL); Segmented Neutrophils % 67 % (38-78); Toxic Granulation 1+ (NONE SEEN)
[2017-01-28] MEDS: PANTOPRAZOLE 40 MG TABLET PO SCH (07:37)
[2017-01-28] MEDS: DOCUSATE SODIUM 100 MG CAPSULE PO SCH ×2 (08:52→20:12)
[2017-01-28] MEDS ORDERED: THIAMINE 100 MG in 0.9 % SODIUM CHLORIDE 50 ML IV SCH (09:00)
[2017-01-28] MEDS ORDERED: LEVOFLOXACIN 750 MG/150 ML BAG IV SCH (09:00)
[2017-01-28] MEDS: MULTIVIT,THER IRON,CA,FA & MIN 1 TABLET PO SCH (09:16)
[2017-01-28 09:24] LABS: ALT/SGPT 173 U/l (0-40); Albumin 2.7 gm/dL (3.2-5.2); Albumin/Globulin Ratio 0.9 (1.0-2.3); Alkaline Phosphatase 143 U/L (39-117); Beta Hydroxybutyrate 1.09 mmol/L (< 0.27); Blood Urea Nitrogen 30 mg/dl (8-23)
[2017-01-28] MEDS: 0.9 % SODIUM CHLORIDE 1,000 ML IV SCH ×3 (09:47→22:10)
--- NOTE | 2017-01-28 09:49 | Internal Med Progress Note ---
Medical - PN: Subj Patient information: Note initiated : 01/28/17 at 9:47 am Service Date, if different from initiated Date: [] Patient: Sylvia Tucker 71 y/o F admitted on 01/26/17 for stroke like symptoms. Chief Complaint: [] Interval history: 01/26- patient admitted with mental status change and weakness and septic shock. complicated UTI. Started on broad antibiotic coverage pressors after 3 L crystalloids. Patient admitted to ICU. History of underlying chronic alcoholism. white count at 14.5 with creatinine 1.7. significant pyuria. GNR on urine culture. ABG 7.42/32/68 on 3 L oxygen. EKG normal sinus. cT head unremarkable except for old lacunar infarct. 01/27-patient off pressors. Doing better. Systolics at goal. Good urine output. GNR on culture. White count downtrending at 11.3. Creatinine 1.7. stable hemodynamics sats 96% on 1 L. renal ultrasound negative with no evidence of pyelonephritis/obstructive uropathy. transfer to medical floor. No overnight fever chills CP/SOB or concerns per staff except for alcohol withdrawals. She is currently on oral alcohol every 6 hour to prevent withdrawal symptoms. 01/28- Pt seen examined, no acute issues, pt in etoh withdrawal, on CIWA protocol , IV thiamine, and etoh with meals to avoid severe withdrawal. Labs reviwed this AM, shows worsening lft, will get liver usg, acidosis noted, will get worked up. Pt otherwise only has mild anxiety, labs and plan of care reviewed with the patient. microbiology reviwed, ecoli, browning sensitive, Pertinent ROS: Denies headache, dizziness Denies chest pain, palpitations Denies cough or shortness of breath Denies abdominal pain, nausea or vomiting. psych- anxiety present. - Constitutional Vitals: Vital Signs Temp Pulse Resp BP Pulse Ox 97.7 F 82 22 170/80 90 01/28/17 08:00 01/28/17 08:00 01/28/17 08:00 01/28/17 08:00 01/28/17 08:00 Period Temp Pulse Resp BP Sys/Esqueda Pulse Ox Last 24 Hr 97.2 F-98.2 F 68-87 18-22 141-170/69-85 90-99 Intake and Output 01/27/17 01/28/17 01/28/17 21:59 05:59 13:59 Intake Total 640 / 640 450 / 450 Output Total 501 / 501 500 / 500 Balance 139 / 139 -50 / -50 Weight 175 lb Intake & Output: Intake & Output 01/27/17 01/28/17 01/28/17 21:59 05:59 13:59 Intake Total 640 / 640 450 / 450 Output Total 501 / 501 500 / 500 Balance 139 / 139 -50 / -50 Weight 175 lb Intake: IV 100 / 100 50 / 50 Zosyn 2.25 gm In Dextrose 100 / 100 50 / 50 5% in Water 50 ml @ 100 mls/hr IV Q6H [facility] Rx#: [id number] Oral 540 / 540 400 / 400 Output: Urine Catheter Amount 500 / 500 500 / 500 # of times incontinent of urine Other: Meal Dinner Percent of Meal Consumed 50% Feeding Ability Independent # Bowel Movements 1 1 Exam: Constitutional; Afebrile, cooperative, alert, not in distress. Eyes- No icterus, , No periorbital swelling Ears- Ext ear normal, hearing normal to conversation. Neck- Midline trachea, supple Respiratory system: Air Entry equal on both sides, No crackles or wheezing, no rhonchi. CVS- Rate rhythm regular, S1,S2 heard, no gallop, no rub. Abdomen- Soft nontender abdomen, no organomegaly, no tenderness, no guarding or rigidity, [employer]- AOOx3, moving all extremities, no gross focal deficit noted. Medical - PN: Obj Da - Labs CBC & Chem 7: 01/28/17 04:04 01/28/17 08:06 Labs: Abnormal Lab Results 01/28/17 01/28/17 01/28/17 08:06 04:04 04:04 WBC RBC 3.19 L Hgb 10.6 L Hct 32.2 L MCV 100.8 H Seg Neutrophils % Band Neutrophils % 18 H Lymphocytes % 10 L WBC Morphology Abnorm A Toxic Granulation 1+ A RBC Morphology Abnorm A Macrocytosis 1+ A ESR Carbon Dioxide 20 L 16 L BUN 30 H 31 H Creatinine 1.7 H 1.6 H Calcium 8.1 L 7.8 L Direct Bilirubin GGT 81 H AST 370 H 388 H ALT 173 H 157 H Alkaline Phosphatase 143 H 130 H Lactate Dehydrogenase 361 H C-Reactive Protein Total Protein 5.7 L 5.3 L Albumin 2.7 L 2.3 L Albumin/Globulin Ratio 0.9 L 0.8 L Beta-Hydroxybutyrate 1.09 H 01/27/17 01/27/17 01/26/17 04:30 04:30 08:39 WBC 11.3 H RBC 3.38 L Hgb 11.3 L Hct 34.2 L MCV 101.1 H Seg Neutrophils % 81 H Band Neutrophils % Lymphocytes % 6 L WBC Morphology Toxic Granulation RBC Morphology Abnorm A Macrocytosis 1+ A ESR Carbon Dioxide 21 L BUN 32 H Creatinine 1.7 H Calcium 7.6 L Direct Bilirubin 0.4 H GGT 55 H AST 179 H ALT 85 H Alkaline Phosphatase Lactate Dehydrogenase 392 H C-Reactive Protein 20.7 H Total Protein Albumin 2.9 L Albumin/Globulin Ratio 0.9 L Beta-Hydroxybutyrate 01/26/17 08:39 WBC RBC Hgb Hct MCV Seg Neutrophils % Band Neutrophils % Lymphocytes % WBC Morphology Toxic Granulation RBC Morphology Macrocytosis ESR 66 H Carbon Dioxide BUN Creatinine Calcium Direct Bilirubin GGT AST ALT Alkaline Phosphatase Lactate Dehydrogenase C-Reactive Protein Total Protein Albumin Albumin/Globulin Ratio Beta-Hydroxybutyrate Meds: Medications Albuterol/Ipratropium (Duoneb) 3 ml NEB Q4HP PRN PRN Reason: Shortness Of Breath Ascorbic Acid (Vitamin C) 1,000 mg PO DAILY [facility] Atenolol (Tenormin) 100 mg PO DAILY [facility] Budesonide (Entecort) 3 mg PO DAILY [facility] Calcium/Vitamin D (Calcium W/Vit D3) 500 mg PO DAILY [facility] Cefazolin Sodium (Ancef) 1 gm IV Q8H [facility] Docusate Sodium (Colace) 100 mg PO BID [facility] Last Admin: 01/28/17 08:52 Dose: Not Given Fluoxetine HCl (Prozac) 60 mg PO DAILY [facility] Furosemide (Lasix) 20 mg PO DAILY [facility] Gabapentin (Neurontin) 600 mg PO BID [facility] Heparin Sodium (Porcine) (Heparin) 5,000 unit SQ Q12 [facility] Last Admin: 01/27/17 21:06 Dose: 5,000 unit Magnesium Sulfate (Magnesium Sulfate) 2 gm in 50 mls @ 50 mls/hr IV UD PRN PRN Reason: MG = or < 1.7 Piperacillin Sod/Tazobactam (Sod 2.25 gm/ Dextrose) 50 mls @ 100 mls/hr IV Q6H [facility] Last Admin: 01/28/17 05:55 Dose: 100 mls/hr Thiamine HCl 100 mg/ Sodium (Chloride) 51 mls @ 50 mls/hr IV DAILY [facility] Stop: 01/28/17 10:02 Sodium Chloride (Sodium Chloride 0.9%) 1,000 mls @ 100 mls/hr IV .Q10H [facility] Stop: 01/29/17 03:59 Iron Carb/Multivit/Radiosonde Operator/Folic Acid (Multivitamin W/Minerals) 1 tab PO DAILY [facility] Last Admin: 01/28/17 09:16 Dose: Not Given Levothyroxine Sodium (Synthroid) 88 mcg PO QAMAC [facility] Loperamide HCl (Imodium) 2 mg PO PRN PRN PRN Reason: Diarrhea Lorazepam (Ativan) 1 mg IV Q4HP PRN; Protocol PRN Reason: Alcohol Withdrawal Last Admin: 01/27/17 22:22 Dose: 1 mg Ondansetron HCl (Zofran) 4 mg IV Q4-6HP PRN PRN Reason: Nausea And Vomiting Pantoprazole Sodium (Protonix) 40 mg PO QAMAC [facility] Last Admin: 01/28/17 07:37 Dose: 40 mg Potassium Chloride (Klor-Con) 40 meq PO DAILYP PRN PRN Reason: K+ < 3.5 Senna/Docusate Sodium (Senna Plus Tablet) 1 tab PO HS [facility] Last Admin: 01/27/17 21:06 Dose: Not Given Sodium Chloride (Saline Flush) 10 ml IV Q8 [facility] Last Admin: 01/28/17 05:55 Dose: 10 ml Temazepam (Restoril) 15 mg PO HSP PRN PRN Reason: Insomnia Last Admin: 01/27/17 22:22 Dose: 15 mg Vitamin B Complex (Vitamin B Complex) 1 cap PO DAILY [facility] Medical - PN: A/P - Time Spent With Patient Total time spent is greater than 50% in coordination of care (as documented) at patient's floor/unit and/or counseling patient: - Narrative A/P Narrative: Complicated UTI due to Ecoli- Browning sensitive, d/c levoflox start anceph with narrow coverage. Septic Shock - Resolved, HTN- BP high, resume home meds Alcohol withdrawal, on CIwa protocol, prn ativan, wine with meals, pt will resume etoh consumption when she is back home after this acute crisis, Educated with regards to harmful effects of alcohol, advised to consider quitting. Hypothyroidism- on levothyroxine, resume same Anxiety- etoh withdrwal and h/o anxiety, resume home dose Worsening LFT- Noted on labs. d/c tylenol, liver usg today acidosis- etiology? likely starvation ketosis, etoh related, IV fluids, Renal failure- acute kidney injury vs ckd, neg renal usg, IV fluids for now, consider renal consult as outpatient. diet cardia code full dispo- anticipate d/c in AM if liver function improves. Medical - PN: Qual - Stroke Onset of Symptoms Date: 01/26/17 Onset of Symptoms Time: 05:00 Symptom Onset Unknown: Yes - VTE Deep Vein Thrombosis/Pulmonary Embolism Present on Admission: No
[2017-01-28] MEDS: HEPARIN 5,000 UNIT/ML VIAL SQ SCH ×2 (09:58→20:09)
[2017-01-28] MEDS: ceFAZolin 1 GM VIAL IV SCH ×2 (10:13→17:41)
[2017-01-28] MEDS: ATENOLOL 50 MG TABLET PO SCH (10:26)
[2017-01-28] MEDS: GABAPENTIN 300 MG CAPSULE PO SCH ×2 (10:28→20:09)
[2017-01-28] MEDS: ASCORBIC ACID 500 MG TABLET PO SCH (10:29)
[2017-01-28] MEDS: CALCIUM W/VIT D3 500 MG TABLET PO SCH (10:30)
[2017-01-28] MEDS: LOPERAMIDE 2 MG CAPSULE PO PRN ×2 (10:31→16:35)
--- NOTE | 2017-01-28 10:43 | Ultrasound Report ---
History: Abnormal liver enzymes and sepsis Findings: Liver is mildly enlarged. The parenchyma is mildly echogenic indicating fatty infiltration. No liver mass is seen. Doppler shows normal blood flow in the hepatic and portal veins. There is abnormal eccentric thickening of the gallbladder wall at the interface between the gallbladder and liver parenchyma. It measures up to 1.7 cm in thickness. Doppler shows it is relatively hypovascular. No stone or mass is seen within the lumen of the gallbladder. The opposite wall of the gallbladder is only 2.8 mm in thickness. The bile ducts are normal in caliber with the common duct measuring up to 5 mm. The pancreas is normal without evidence of a mass or inflammation. No ascites is present. Impression: Asymmetric thickening of the gallbladder wall. This could be due to focal adenomyomatosis, gallbladder carcinoma, metastasis to the gallbladder, AIDS and less likely tumefactive sludge adherent to the gallbladder wall. Hepatomegaly with fatty infiltration of the liver Interpreted and Authenticated by: Kalpesh Argueta 01/28/17
--- NOTE | 2017-01-28 15:31 | General Surgery Consult Note ---
[id number] Date: [] Patient: Sylvia Tucker 71 y/o F admitted on 01/26/17 for stroke like symptoms. Chief Complaint: [] Reason for consult: other (elevated LFTs and thickening of the posterior wall of gallbladder by ultrasound) Requesting physician: Riki Domínguez History of present illness: 71-year-old femaleadmitted on 26 January with an acute change in neurologic deficit progressing over 2+ days. She also had fever and chills with visual hallucinations. She was brought to the emergency room where she was noted to be afebrile but had leukocytosis and lab evidence of pyuria with gram-negative rods and a urine. She was also mildly hyponsive. CT of the brain revealed old lacunar infarct. It was noted that the patient has a long history of heavy alcohol use and she drinks heavy doses of wine on a regular basis. Her initial LFTs were mildly elevated with a normal bilirubin and alkaline phosphatase. These showed a slight rise on the second hospital day. Ultrasound of the gallbladder revealed fatty infiltration of the liver with thickening of the posterior gallbladder wall. The question of gallbladder neoplasia arose in the differential however the patient has evidence of alcoholic hepatopathy and it is felt that this thickening is edema due to the inflammation of the liver. Review of Systems ROS unobtainable: due to mental status - Constitutional chills, fever(s), lethargy - Psychiatric hallucinations, irritability Past History Past medical history: hypertension Chronic alcohol abuse Hypothyroidism Peripheral neuropathy Anxiety with depression Past surgical history: appendectomy Past family history: ot given Past social history: lives alone Heavy alcohol use former smoker Denies drug use Medications and Allergies Home Medications Medication Instructions Recorded Confirmed Type Atenolol [Tenormin] 100 mg PO QDAY 09/08/15 01/26/17 History Omeprazole [Prilosec] 20 mg PO ACB 09/08/15 01/26/17 History Ascorbic Acid [Vitamin C] 1,000 mg PO DAILY 01/26/17 01/26/17 History Calcium Carbonate/Vitamin D3 600 mg PO DAILY 01/26/17 01/26/17 History [Calcium 600 + Vit D Tablet] Furosemide [Lasix] 20 mg PO DAILY 01/26/17 01/26/17 History Gabapentin 900 mg PO TID 01/26/17 01/29/17 History Levothyroxine [Synthroid] 88 mcg PO QAMAC 01/26/17 01/26/17 History Multivitamin [One Daily Essential] 1 each PO DAILY 01/26/17 01/26/17 History Vitamin B Complex 1 cap PO DAILY 01/26/17 01/26/17 History Triazolam [Halcion] 0.5 mg PO HS 01/29/17 01/29/17 History Cephalexin [Keflex] 500 mg PO BID #20 capsule 01/30/17 Rx LORazepam [Ativan] 1 mg PO Q6HP PRN #30 tablet 01/30/17 Rx Allergies Allergy/AdvReac Type Severity Reaction Status Date / Time No Known Drug Allergies Allergy Verified 09/16/16 12:44 Exam Temp Pulse Resp BP Pulse Ox 97.3 F L 82 22 158/78 92 01/28/17 12:04 01/28/17 12:04 01/28/17 12:04 01/28/17 12:04 01/28/17 12:04 - General physical appearance well developed, well nourished, no distress - Eyes PERRL, normal ocular movement. negative: icteric - ENT normal pinna, normal nares, normal mucosa, no hearing loss, no congestion - Head Head exam IM: Present: atraumatic, normocephalic - Neck no masses, no bruits, trachea midline, no lymphadectomy, no venous distension - Cardiovascular Cardiovascular exam IM: Present: normal rate and rhythm, RRR, +S1, +S2. Absent : JVD - Respiratory normal expansion, normal respiratory effort, clear to percussion, clear to auscultation - Abdomen Abdomen: Present: soft (obese abdomen nondistended; good active bowel sounds; nontender; specifically no tenderness in epigastrium or right upper quadrant; no palpable hepatomegaly), non tender, bowel sounds Hernia: Present: none - Integumentary Present: no rash, no growths, no abnormal pigmentation - Neurologic Present: normal coordination, normal sensation - Musculoskeletal Present: normal gait, normal posture - Psychiatric Present: other (memory altered by alcohol withdrawal and medication as well as sepsis) Results - Labs 01/30/17 03:49 01/30/17 03:49 Abnormal lab results 01/28/17 01/28/17 01/28/17 Range/Units 04:04 04:04 08:06 RBC 3.19 L (4.00-5.20) M/mcL Hgb 10.6 L (12.0-15.0) g/dL Hct 32.2 L (36.0-48.0) % MCV 100.8 H (80.0-100.0) fL Band Neutrophils % 18 H (0-10) % Lymphocytes % 10 L (15-49) % WBC Morphology Abnorm A (NORMAL) Toxic Granulation 1+ A (NONE SEEN) RBC Morphology Abnorm A (NORMAL) Macrocytosis 1+ A (NONE SEEN) Carbon Dioxide 16 L 20 L (22-30) mmol/L BUN 31 H 30 H (8-23) mg/dl Creatinine 1.6 H 1.7 H (0.6-1.1) mg/dl Calcium 7.8 L 8.1 L (8.6-10.4) mg/dl GGT 81 H (5-36) U/L AST 388 H 370 H (0-37) U/l ALT 157 H 173 H (0-40) U/l Alkaline Phosphatase 130 H 143 H (39-117) U/L Lactate Dehydrogenase 361 H (94-250) U/L Total Protein 5.3 L 5.7 L (5.9-8.4) gm/dL Albumin 2.3 L 2.7 L (3.2-5.2) gm/dL Albumin/Globulin Ratio 0.8 L 0.9 L (1.0-2.3) Beta-Hydroxybutyrate 1.09 H (< 0.27) mmol/L Diabetes panel 01/28/17 01/28/17 Range/Units 04:04 08:06 Sodium 134 133 (133-145) mmol/L Potassium 3.8 3.5 (3.3-5.1) mmol/L Chloride 102 99 (96-108) mmol/L Carbon Dioxide 16 L 20 L (22-30) mmol/L BUN 31 H 30 H (8-23) mg/dl Creatinine 1.6 H 1.7 H (0.6-1.1) mg/dl Glucose 91 96 (70-105) mg/dL Calcium 7.8 L 8.1 L (8.6-10.4) mg/dl AST 388 H 370 H (0-37) U/l ALT 157 H 173 H (0-40) U/l Alkaline Phosphatase 130 H 143 H (39-117) U/L Total Protein 5.3 L 5.7 L (5.9-8.4) gm/dL Albumin 2.3 L 2.7 L (3.2-5.2) gm/dL Triglycerides 125 (<150) mg/dl Calcium panel 01/28/17 01/28/17 Range/Units 04:04 08:06 Calcium 7.8 L 8.1 L (8.6-10.4) mg/dl Phosphorus 3.0 (2.7-4.5) mg/dL Albumin 2.3 L 2.7 L (3.2-5.2) gm/dL Pituitary panel 01/28/17 01/28/17 Range/Units 04:04 08:06 Sodium 134 133 (133-145) mmol/L Potassium 3.8 3.5 (3.3-5.1) mmol/L Chloride 102 99 (96-108) mmol/L Carbon Dioxide 16 L 20 L (22-30) mmol/L BUN 31 H 30 H (8-23) mg/dl Creatinine 1.6 H 1.7 H (0.6-1.1) mg/dl Glucose 91 96 (70-105) mg/dL Calcium 7.8 L 8.1 L (8.6-10.4) mg/dl Adrenal panel 01/28/17 01/28/17 Range/Units 04:04 08:06 Sodium 134 133 (133-145) mmol/L Potassium 3.8 3.5 (3.3-5.1) mmol/L Chloride 102 99 (96-108) mmol/L Carbon Dioxide 16 L 20 L (22-30) mmol/L BUN 31 H 30 H (8-23) mg/dl Creatinine 1.6 H 1.7 H (0.6-1.1) mg/dl Glucose 91 96 (70-105) mg/dL Calcium 7.8 L 8.1 L (8.6-10.4) mg/dl Total Bilirubin 0.8 0.9 (0.0-1.0) mg/dL AST 388 H 370 H (0-37) U/l ALT 157 H 173 H (0-40) U/l Alkaline Phosphatase 130 H 143 H (39-117) U/L Total Protein 5.3 L 5.7 L (5.9-8.4) gm/dL Albumin 2.3 L 2.7 L (3.2-5.2) gm/dL All other labs normal. Assessment and Plan (1) Acute kidney failure Status: Acute Qualifiers: Acute renal failure type: unspecified Qualified Code(s): N17.9 - Acute kidney failure, unspecified (2) Delirium Status: Acute (3) Elevated liver enzymes THE ELEVATED LFT'S ARE PROBABLY RELATED TO ALCOHOLIC HEPATOPATHY. THE FINDINGS ON THE ULTRASOUND ARE NONSPECIFIC BUT CAN BE SEEN IN PATIENTS WHO HAVE INFLAMMATION OF THE LIVER WHICH IS TRANSMITTED TO THE POSTERIOR WALL OF THE GALLBLADDER. ADENOMYOMATOSIS OF GALLBLADDER IS ANOTHER POSSIBLE CAUSE. WILL WAIT FOR THE RESULTS OF THE MRI BEFORE MAKING FURTHER SUGGESTIONS. THE FINDINGS ARE PROBABLY NOT ACUTE AND CAN BE FOLLOWED UP AN OUTPATIENT. I WILL SEE HER TOMORROW AFTER HER MRI IS COMPLETED. Status: Acute (4) UTI (urinary tract infection) Status: Acute Qualifiers: Urinary tract infection type: acute cystitis Hematuria presence: with hematuria Qualified Code(s): N30.01 - Acute cystitis with hematuria
[2017-01-28] MEDS: LORazepam 2 MG/ML VIAL IV PRN ×2 (16:42→23:21)
[2017-01-28] MEDS ORDERED: NICOTINE POLACRILEX 2 MG GUM BC PRN (17:50)
[2017-01-28] MEDS: TEMAZEPAM 15 MG CAPSULE PO PRN (20:09)
[2017-01-28] MEDS: SENNOSIDES/DOCUSATE SODIUM 1 TAB TABLET PO SCH (20:12)
[2017-01-29] MEDS: ceFAZolin 1 GM VIAL IV SCH ×3 (02:34→17:45)
[2017-01-29 05:10] LABS: Mean Cell Volume 99.7 fL (80.0-100.0); Mean Corpuscular HGB Conc 33.2 g/dL (31.0-36.0); Mean Corpuscular Hemoglobin 33.1 pg (26.0-34.0); Platelet Count 219 K/mcL (140-440); RBC 3.09 M/mcL (4.00-5.20); Red Cell Distribution Width 14.6 % (11.5-14.5)
[2017-01-29 05:30] LABS: ALT/SGPT 197 U/l (0-40); Albumin 2.2 gm/dL (3.2-5.2); Albumin/Globulin Ratio 0.8 (1.0-2.3); Alkaline Phosphatase 188 U/L (39-117); Bilirubin,Direct 0.7 mg/dL (0.0-0.3); Blood Urea Nitrogen 27 mg/dl (8-23); Gamma Glutamyl Transpeptidase 146 U/L (5-36); Magnesium 1.7 mg/dL (1.6-2.5); Uric Acid 5.7 mg/dL (2.5-8.0)
[2017-01-29] MEDS: PIPERACILLIN SODIUM/TAZOBACTAM 2.25 GM in DEXTROSE 5% IN WATER 50 ML IV SCH ×4 (05:50→17:45)
[2017-01-29] MEDS: 0.9 % SODIUM CHLORIDE 10 ML SYRINGE IV SCH ×3 (05:52→22:23)
[2017-01-29 06:42] LABS: Anisocytosis 1+ (NONE SEEN); Band Neutrophils % 9 % (0-10); Eosinophils % (Manual) 1 % (0-7); Lymphocytes % 6 % (15-49); Monocytes % (Manual) 13 % (1-12); Platelet Estimate NORMAL (NORMAL); RBC Morphology ABNORM (NORMAL); Segmented Neutrophils % 71 % (38-78)
[2017-01-29] MEDS ORDERED: OMEPRAZOLE 20 MG CAPSULE PO SCH (07:30)
[2017-01-29] MEDS: PANTOPRAZOLE 40 MG TABLET PO SCH (08:24)
[2017-01-29] MEDS: LEVOTHYROXINE 88 MCG TABLET PO SCH (08:24)
[2017-01-29] MEDS: LOPERAMIDE 2 MG CAPSULE PO PRN ×2 (08:24→14:23)
[2017-01-29] MEDS ORDERED: BUDESONIDE 3 MG CAP.XL.24H PO SCH (09:00)
[2017-01-29] MEDS ORDERED: FLUoxetine HCL 20 MG CAPSULE PO SCH (09:00)
[2017-01-29] MEDS ORDERED: MULTIVITAMIN PO SCH (09:00)
[2017-01-29] MEDS: VITAMIN B COMPLEX 1 CAPSULE PO SCH (09:59)
[2017-01-29] MEDS: MULTIVIT,THER IRON,CA,FA & MIN 1 TABLET PO SCH (09:59)
[2017-01-29] MEDS: GABAPENTIN 300 MG CAPSULE PO SCH ×2 (10:00→20:01)
[2017-01-29] MEDS: ASCORBIC ACID 500 MG TABLET PO SCH (10:00)
[2017-01-29] MEDS: ATENOLOL 50 MG TABLET PO SCH (10:00)
[2017-01-29] MEDS: FUROSEMIDE 20 MG TABLET PO SCH (10:01)
[2017-01-29] MEDS: CALCIUM W/VIT D3 500 MG TABLET PO SCH (10:01)
[2017-01-29] MEDS: HEPARIN 5,000 UNIT/ML VIAL SQ SCH ×2 (10:01→20:01)
[2017-01-29] MEDS: DOCUSATE SODIUM 100 MG CAPSULE PO SCH ×2 (10:03→21:05)
--- NOTE | 2017-01-29 12:42 | Internal Med Progress Note ---
Medical - PN: Subj Patient information: Note initiated : 01/29/17 at 12:40 pm Service Date, if different from initiated Date: [] Patient: Sylvia Tucker 71 y/o F admitted on 01/26/17 for stroke like symptoms. Chief Complaint: [] Interval history: 01/26- patient admitted with mental status change and weakness and septic shock. complicated UTI. Started on broad antibiotic coverage pressors after 3 L crystalloids. Patient admitted to ICU. History of underlying chronic alcoholism. white count at 14.5 with creatinine 1.7. significant pyuria. GNR on urine culture. ABG 7.42/32/68 on 3 L oxygen. EKG normal sinus. cT head unremarkable except for old lacunar infarct. 01/27-patient off pressors. Doing better. Systolics at goal. Good urine output. GNR on culture. White count downtrending at 11.3. Creatinine 1.7. stable hemodynamics sats 96% on 1 L. renal ultrasound negative with no evidence of pyelonephritis/obstructive uropathy. transfer to medical floor. No overnight fever chills CP/SOB or concerns per staff except for alcohol withdrawals. She is currently on oral alcohol every 6 hour to prevent withdrawal symptoms. 01/28- Pt seen examined, no acute issues, pt in etoh withdrawal, on CIWA protocol , IV thiamine, and etoh with meals to avoid severe withdrawal. Labs reviwed this AM, shows worsening lft, will get liver usg, acidosis noted, will get worked up. Pt otherwise only has mild anxiety, labs and plan of care reviewed with the patient. microbiology reviwed, ecoli, browning sensitive, 01/29 Pt seen examiend, no acute events, CIWA ok, pt plans to quit alcohol now , case management has given her resources. Her LFT continues to trend upward,s pt remains asymptomatic. MRI abdomen awaited, surg consult awaited. Pertinent ROS: Denies headache, dizziness Denies chest pain, palpitations Denies cough or shortness of breath Denies abdominal pain, nausea or vomiting. - Constitutional Vitals: Vital Signs Temp Pulse Resp BP Pulse Ox 97.0 F L 72 20 161/77 93 01/29/17 08:00 01/29/17 08:00 01/29/17 08:00 01/29/17 08:00 01/29/17 09:44 Period Temp Pulse Resp BP Sys/Esqueda Pulse Ox Last 24 Hr 97.0 F-98.3 F 72-78 18-20 161-167/75-83 92-93 Intake and Output 01/28/17 01/29/17 01/29/17 21:59 05:59 13:59 Intake Total 1790 / 1790 650 / 650 50 / 50 Output Total 250 / 250 50 / 50 226 / 226 Balance 1540 / 1540 600 / 600 -176 / -176 Weight 178 lb Intake & Output: Intake & Output 01/28/17 01/29/17 01/29/17 21:59 05:59 13:59 Intake Total 1790 / 1790 650 / 650 50 / 50 Output Total 250 / 250 50 / 50 226 / 226 Balance 1540 / 1540 600 / 600 -176 / -176 Weight 178 lb Intake: IV 1050 / 1050 50 / 50 50 / 50 Sodium Chloride 0.9% 1, 1000 / 1000 000 ml @ 100 mls/hr IV . Q10H [facility] Rx#:[id number] Zosyn 2.25 gm In Dextrose 50 / 50 50 / 50 50 / 50 5% in Water 50 ml @ 100 mls/hr IV Q6H KENDRA Rx#: [id number] Oral 740 / 740 600 / 600 Output: Void Amount 250 / 250 50 / 50 225 / 225 # of times incontinent of 1 / 1 urine Other: Meal few pieces chicken and few bites salad Feeding Ability Assist with Tray Set Up # Voids 1 1 1 # Bowel Movements 1 1 Exam: Constitutional; Afebrile, cooperative, alert, not in distress. Eyes- No icterus, , No periorbital swelling Ears- Ext ear normal, hearing normal to conversation. Neck- Midline trachea, supple Respiratory system: Air Entry equal on both sides, No crackles or wheezing, no rhonchi. CVS- Rate rhythm regular, S1,S2 heard, no gallop, no rub. 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 Medical - PN: Obj Da - Labs CBC & Chem 7: 01/29/17 03:59 01/29/17 03:59 Labs: Abnormal Lab Results 01/29/17 01/29/17 01/28/17 03:59 03:59 08:06 WBC RBC 3.09 L Hgb 10.2 L Hct 30.8 L MCV RDW 14.6 H Seg Neutrophils % Band Neutrophils % Lymphocytes % 6 L Monocytes % (Manual) 13 H WBC Morphology Toxic Granulation RBC Morphology Abnorm A Anisocytosis 1+ A Macrocytosis Carbon Dioxide 19 L 20 L BUN 27 H 30 H Creatinine 1.5 H 1.7 H Calcium 7.8 L 8.1 L Phosphorus 2.6 L Direct Bilirubin 0.7 H GGT 146 H AST 416 H 370 H ALT 197 H 173 H Alkaline Phosphatase 188 H 143 H Lactate Dehydrogenase 338 H Total Protein 5.0 L 5.7 L Albumin 2.2 L 2.7 L Albumin/Globulin Ratio 0.8 L 0.9 L Beta-Hydroxybutyrate 1.09 H 01/28/17 01/28/17 01/27/17 04:04 04:04 04:30 WBC RBC 3.19 L Hgb 10.6 L Hct 32.2 L MCV 100.8 H RDW Seg Neutrophils % Band Neutrophils % 18 H Lymphocytes % 10 L Monocytes % (Manual) WBC Morphology Abnorm A Toxic Granulation 1+ A RBC Morphology Abnorm A Anisocytosis Macrocytosis 1+ A Carbon Dioxide 16 L 21 L BUN 31 H 32 H Creatinine 1.6 H 1.7 H Calcium 7.8 L 7.6 L Phosphorus Direct Bilirubin 0.4 H GGT 81 H 55 H AST 388 H 179 H ALT 157 H 85 H Alkaline Phosphatase 130 H Lactate Dehydrogenase 361 H 392 H Total Protein 5.3 L Albumin 2.3 L 2.9 L Albumin/Globulin Ratio 0.8 L 0.9 L Beta-Hydroxybutyrate 01/27/17 04:30 WBC 11.3 H RBC 3.38 L Hgb 11.3 L Hct 34.2 L MCV 101.1 H RDW Seg Neutrophils % 81 H Band Neutrophils % Lymphocytes % 6 L Monocytes % (Manual) WBC Morphology Toxic Granulation RBC Morphology Abnorm A Anisocytosis Macrocytosis 1+ A Carbon Dioxide BUN Creatinine Calcium Phosphorus Direct Bilirubin GGT AST ALT Alkaline Phosphatase Lactate Dehydrogenase Total Protein Albumin Albumin/Globulin Ratio Beta-Hydroxybutyrate Meds: Medications Albuterol/Ipratropium (Duoneb) 3 ml NEB Q4HP PRN PRN Reason: Shortness Of Breath Ascorbic Acid (Vitamin C) 1,000 mg PO DAILY [facility] Last Admin: 01/29/17 10:00 Dose: 1,000 mg Atenolol (Tenormin) 100 mg PO DAILY [facility] Last Admin: 01/29/17 10:00 Dose: 100 mg Budesonide (Entecort) 3 mg PO DAILY [facility] Last Admin: 01/29/17 10:03 Dose: Not Given Calcium/Vitamin D (Calcium W/Vit D3) 500 mg PO DAILY [facility] Last Admin: 01/29/17 10:01 Dose: 500 mg Cefazolin Sodium (Ancef) 1 gm IV Q8H [facility] Last Admin: 01/29/17 10:01 Dose: 1 gm Docusate Sodium (Colace) 100 mg PO BID [facility] Last Admin: 01/29/17 10:03 Dose: Not Given Fluoxetine HCl (Prozac) 60 mg PO DAILY [facility] Last Admin: 01/29/17 10:00 Dose: Not Given Furosemide (Lasix) 20 mg PO DAILY [facility] Last Admin: 01/29/17 10:01 Dose: 20 mg Gabapentin (Neurontin) 600 mg PO BID [facility] Last Admin: 01/29/17 10:00 Dose: 600 mg Heparin Sodium (Porcine) (Heparin) 5,000 unit SQ Q12 [facility] Last Admin: 01/29/17 10:01 Dose: 5,000 unit Magnesium Sulfate (Magnesium Sulfate) 2 gm in 50 mls @ 50 mls/hr IV UD PRN PRN Reason: MG = or < 1.7 Last Admin: 01/29/17 08:25 Dose: 50 mls/hr Piperacillin Sod/Tazobactam (Sod 2.25 gm/ Dextrose) 50 mls @ 100 mls/hr IV Q6H [facility] Last Admin: 01/29/17 12:02 Dose: 100 mls/hr Iron Carb/Multivit/Veneer Taper/Folic Acid (Multivitamin W/Minerals) 1 tab PO DAILY [facility] Last Admin: 01/29/17 09:59 Dose: 1 tab Levothyroxine Sodium (Synthroid) 88 mcg PO QAMAC [facility] Last Admin: 01/29/17 08:24 Dose: 88 mcg Loperamide HCl (Imodium) 2 mg PO PRN PRN PRN Reason: Diarrhea Last Admin: 01/29/17 08:24 Dose: 2 mg Lorazepam (Ativan) 0 mg IV Q4HP PRN; Protocol PRN Reason: Alcohol Withdrawal Last Admin: 01/28/17 23:21 Dose: 2 mg Nicotine Polacrilex (Nicotine Gum) 2 mg BC PRN PRN PRN Reason: cravings Ondansetron HCl (Zofran) 4 mg IV Q4-6HP PRN PRN Reason: Nausea And Vomiting Pantoprazole Sodium (Protonix) 40 mg PO QAMAC [facility] Last Admin: 01/29/17 08:24 Dose: 40 mg Potassium Chloride (Klor-Con) 40 meq PO DAILYP PRN PRN Reason: K+ < 3.5 Senna/Docusate Sodium (Senna Plus Tablet) 1 tab PO HS [facility] Last Admin: 01/28/17 20:12 Dose: Not Given Sodium Chloride (Saline Flush) 10 ml IV Q8 [facility] Last Admin: 01/29/17 05:52 Dose: Not Given Temazepam (Restoril) 15 mg PO HSP PRN PRN Reason: Insomnia Last Admin: 01/28/17 20:09 Dose: 15 mg Vitamin B Complex (Vitamin B Complex) 1 cap PO DAILY [facility] Last Admin: 01/29/17 09:59 Dose: 1 cap Medical - PN: A/P - Time Spent With Patient Total time spent is greater than 50% in coordination of care (as documented) at patient's floor/unit and/or counseling patient: - Narrative A/P Narrative: Complicated UTI due to Ecoli- Browning sensitive, d/c levoflox start anceph with narrow coverage. Septic Shock - Resolved, HTN- BP high, resume home dose of atenolol, start on amlodipine 2.5mg Alcohol withdrawal, on CIwa protocol, prn ativan, wine with meals, pt plans to quit now. Hypothyroidism- on levothyroxine, resume same Anxiety- etoh withdrwal and h/o anxiety, resume home dose Worsening LFT-- LFT trending upwards, cholestatic picture, MRI abdomen pending. Surg consult pending, Liver USG shows GB with possible adenomyosis, sludge, cancer mets? Renal failure- acute kidney injury vs ckd, neg renal usg, IV fluids for now, consider renal consult as outpatient. creat 1.45 today diet cardiac code full dispo- anticipate d/c home if lft improves. Medical - PN: Qual - Stroke Onset of Symptoms Date: 01/26/17 Onset of Symptoms Time: 05:00 Symptom Onset Unknown: Yes - VTE Deep Vein Thrombosis/Pulmonary Embolism Present on Admission: No
[2017-01-29] MEDS: amLODIPine 5 MG TABLET PO SCH (13:27)
[2017-01-29] MEDS: LORazepam 2 MG/ML VIAL IV PRN ×3 (14:23→22:23)
--- NOTE | 2017-01-29 15:05 | Magnetic Resonance Report ---
History: Mass in the gallbladder wall seen on ultrasound Technique: Multiplanar imaging was performed using multiple pulse sequences. Findings There is asymmetric thickening of the gallbladder wall. The greatest thickening is between the gallbladder and right lobe of the liver where it measures up to 1.8 cm. On the opposite side of the gallbladder, the wall is still thickened and measures up to 8 mm. No discrete tumor is seen in the wall or lumen of the gallbladder. The thickening of the wall involves more of the gallbladder circumference today than was apparent on yesterday's ultrasound. There are no gallstones and no para cholecystic fluid collection. The bile ducts are nondilated. The liver is normal in size and homogeneous, without evidence of metastasis. The adrenals and kidneys are also normal without evidence of a mass. There is no mass or inflammation the pancreas. The spleen is normal in size and homogeneous. The retroperitoneum is normal. Small bilateral layering pleural effusions are present. Impression: Abnormal asymmetric thickening of the gallbladder wall. This is more likely due to inflammation or edema of the gallbladder wall rather than a diffusely infiltrating cancer. There is greater circumferential involvement of the gallbladder today than there was yesterday. Acalculus cholecystitis is also a consideration. However, people with that disease are generally severely ill. People with very low serum albumin level may also develop edema of the gallbladder wall. Small bilateral pleural effusions Interpreted and Authenticated by: Kalpesh Argueta 01/29/17
--- NOTE | 2017-01-29 17:00 | General Surgery Progress Note ---
Subjective Patient reports: feels better, tolerating liquids well, flatus, bowel movement, afebrile Narrative: Note initiated : 01/29/17 at 4:48 pm Service Date, if different from initiated Date: [] Patient: Sylvia Tucker 71 y/o F admitted on 01/26/17 for stroke like symptoms. Chief Complaint: [patient is doing well. she feels much better. she does not have any abdominal pain or biliary symptoms. her MRI findings confirm edema of the gallbladder rather than infiltration or mass. 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 she will not need any intervention.] Objective Temp Pulse Resp BP Pulse Ox 97.5 F L 69 20 168/67 96 01/29/17 12:00 01/29/17 12:00 01/29/17 12:00 01/29/17 12:00 01/29/17 12:00 - Additional Data Intake & Output - Last 24 hours: Intake & Output 01/27/17 01/28/17 01/29/17 01/30/17 05:59 05:59 05:59 05:59 Intake Total 4909 / 5959 1340 / 1340 2591 / 2591 50 / 50 Output Total 1300 / 1300 1586 / 1586 670 / 670 526 / 526 Balance 3609 / 4659 -246 / -246 1921 / 1921 -476 / -476 Weight 172 lb 6.4 oz 175 lb 178 lb - General physical appearance no distress - Eyes PERRL, other (no icterus) - ENT no congestion - Neck no venous distension - Respiratory normal respiratory effort, clear to auscultation - Cardiovascular Cardiovascular exam: Present: normal rate and rhythm, RRR, +S1, +S2 - Abdomen soft, non tender, bowel sounds (normal bowel sound and no tenderness) - Integumentary no rash, no growths, no abnormal pigmentation - Neurologic normal coordination - Psychiatric oriented to time, oriented to person, oriented to place, speech is normal, memory intact - Labs 01/29/17 03:59 01/29/17 03:59 Diabetes panel 01/29/17 Range/Units 03:59 Sodium 137 (133-145) mmol/L Potassium 3.5 (3.3-5.1) mmol/L Chloride 103 (96-108) mmol/L Carbon Dioxide 19 L (22-30) mmol/L BUN 27 H (8-23) mg/dl Creatinine 1.5 H (0.6-1.1) mg/dl Glucose 102 (70-105) mg/dL Calcium 7.8 L (8.6-10.4) mg/dl AST 416 H (0-37) U/l ALT 197 H (0-40) U/l Alkaline Phosphatase 188 H (39-117) U/L Total Protein 5.0 L (5.9-8.4) gm/dL Albumin 2.2 L (3.2-5.2) gm/dL Triglycerides 133 (<150) mg/dl Calcium panel 01/29/17 Range/Units 03:59 Calcium 7.8 L (8.6-10.4) mg/dl Phosphorus 2.6 L (2.7-4.5) mg/dL Albumin 2.2 L (3.2-5.2) gm/dL Pituitary panel 01/29/17 Range/Units 03:59 Sodium 137 (133-145) mmol/L Potassium 3.5 (3.3-5.1) mmol/L Chloride 103 (96-108) mmol/L Carbon Dioxide 19 L (22-30) mmol/L BUN 27 H (8-23) mg/dl Creatinine 1.5 H (0.6-1.1) mg/dl Glucose 102 (70-105) mg/dL Calcium 7.8 L (8.6-10.4) mg/dl Adrenal panel 01/29/17 Range/Units 03:59 Sodium 137 (133-145) mmol/L Potassium 3.5 (3.3-5.1) mmol/L Chloride 103 (96-108) mmol/L Carbon Dioxide 19 L (22-30) mmol/L BUN 27 H (8-23) mg/dl Creatinine 1.5 H (0.6-1.1) mg/dl Glucose 102 (70-105) mg/dL Calcium 7.8 L (8.6-10.4) mg/dl Total Bilirubin 1.0 (0.0-1.0) mg/dL AST 416 H (0-37) U/l ALT 197 H (0-40) U/l Alkaline Phosphatase 188 H (39-117) U/L Total Protein 5.0 L (5.9-8.4) gm/dL Albumin 2.2 L (3.2-5.2) gm/dL Assessment and Plan (1) Acute kidney failure Status: Acute Current Visit: Yes (2) Delirium Status: Acute Current Visit: Yes (3) Elevated liver enzymes Status: Acute Assessment and plan: patient is stable and will not need any more diagnostic studies for now. she should have f/u of her enzymes until they normalize but this will take a few more days. this can be done as an outpatient when her urosepsis is adequately under control. Current Visit: Yes (4) UTI (urinary tract infection) Status: Acute Current Visit: Yes - Time Spent With Patient Total time spent is greater than 50% in coordination of care (as documented) at patient's floor/unit and/or counseling patient:
[2017-01-29] MEDS: TEMAZEPAM 15 MG CAPSULE PO PRN (20:20)
[2017-01-29] MEDS: SENNOSIDES/DOCUSATE SODIUM 1 TAB TABLET PO SCH (21:05)
[2017-01-30] MEDS: PIPERACILLIN SODIUM/TAZOBACTAM 2.25 GM in DEXTROSE 5% IN WATER 50 ML IV SCH ×2 (00:14→06:08)
[2017-01-30] MEDS: ceFAZolin 1 GM VIAL IV SCH ×2 (03:34→09:33)
[2017-01-30 04:52] LABS: Mean Cell Volume 98.6 fL (80.0-100.0); Mean Corpuscular HGB Conc 33.4 g/dL (31.0-36.0); Platelet Count 246 K/mcL (140-440); RBC 3.14 M/mcL (4.00-5.20); Red Cell Distribution Width 14.7 % (11.5-14.5)
[2017-01-30 05:17] LABS: ALT/SGPT 96 U/l (0-40); Albumin 2.2 gm/dL (3.2-5.2); Albumin/Globulin Ratio 0.8 (1.0-2.3); Alkaline Phosphatase 191 U/L (39-117); Bilirubin,Direct 0.3 mg/dL (0.0-0.3); Blood Urea Nitrogen 23 mg/dl (8-23); Gamma Glutamyl Transpeptidase 164 U/L (5-36); Uric Acid 5.9 mg/dL (2.5-8.0)
[2017-01-30] MEDS: 0.9 % SODIUM CHLORIDE 10 ML SYRINGE IV SCH ×2 (06:05→11:14)
[2017-01-30] MEDS ORDERED: POTASSIUM CHLORIDE 20 MEQ PACKET PO ONE (06:30)
[2017-01-30 07:02] LABS: Band Neutrophils % 1 % (0-10); Dohle Bodies 1+ (NONE SEEN); Eosinophils % (Manual) 5 % (0-7); Lymphocytes % 9 % (15-49); Monocytes % (Manual) 12 % (1-12); Platelet Estimate NORMAL (NORMAL); RBC Morphology NORMAL (NORMAL); Segmented Neutrophils % 73 % (38-78); Toxic Granulation 1+ (NONE SEEN)
[2017-01-30] MEDS: LEVOTHYROXINE 88 MCG TABLET PO SCH (07:11)
[2017-01-30] MEDS: PANTOPRAZOLE 40 MG TABLET PO SCH (07:11)
[2017-01-30] MEDS: LOPERAMIDE 2 MG CAPSULE PO PRN (07:38)
[2017-01-30] MEDS: HEPARIN 5,000 UNIT/ML VIAL SQ SCH (09:34)
[2017-01-30] MEDS: ASCORBIC ACID 500 MG TABLET PO SCH (09:34)
[2017-01-30] MEDS: ATENOLOL 50 MG TABLET PO SCH (09:34)
[2017-01-30] MEDS: CALCIUM W/VIT D3 500 MG TABLET PO SCH (09:36)
[2017-01-30] MEDS: DOCUSATE SODIUM 100 MG CAPSULE PO SCH (09:36)
[2017-01-30] MEDS: VITAMIN B COMPLEX 1 CAPSULE PO SCH (09:36)
[2017-01-30] MEDS: GABAPENTIN 300 MG CAPSULE PO SCH (09:36)
[2017-01-30] MEDS: FUROSEMIDE 20 MG TABLET PO SCH (09:36)
[2017-01-30] MEDS: amLODIPine 5 MG TABLET PO SCH (09:36)
[2017-01-30] MEDS: MULTIVIT,THER IRON,CA,FA & MIN 1 TABLET PO SCH (09:37)
--- NOTE | 2017-01-30 09:46 | Discharge Summary ---
Medical - DS: Prov Patient information: Note initiated : 01/30/17 at 9:42 am Service Date, if different from initiated Date: [] Patient: Sylvia Tucker 71 y/o F admitted on 01/26/17 for stroke like symptoms. Chief Complaint: [] Date of admission: 01/26/17 06:45 Discharge date: 01/30/17 Primary care physician: [f_Reg Prim Care Provider] Admitting clinician: Riki Domínguez Consults: 01/28/17 12:10 Consult to Physician [CONS] Routine Comment: Consulting Provider: Emma Soliman Reason For Exam: Physician to Consult Discharging clinician: Jw Gore Medical - DS: Meds - Discharge Medications Prescriptions: Cephalexin [Keflex] 500 mg PO BID #20 capsule LORazepam [Ativan] 1 mg PO Q6HP PRN #30 tablet PRN Reason: Alcohol Withdrawal Active and Home Medications: Home Medications Atenolol [Tenormin] 100 mg PO QDAY 09/08/15 [History Confirmed 01/26/17 Last Taken 01/25/17 07:00] Omeprazole [PriLOSEC] 20 mg PO ACB 09/08/15 [History Confirmed 01/26/17 Last Taken 01/25/17 07:00] Ascorbic Acid [Vitamin C] 1,000 mg PO DAILY 01/26/17 [History Confirmed Last Taken 01/25/17 09:00] Calcium Carbonate/Vitamin D3 [Calcium 600 + Vit D Tablet] 600 mg PO DAILY [History Confirmed 01/26/17 Last Taken 01/25/17 08:00] Furosemide [Lasix] 20 mg PO DAILY 01/26/17 [History Confirmed 01/26/17 Last Taken 01/25/17 09:00] Gabapentin 900 mg PO TID 01/26/17 [History Confirmed 01/29/17 Last Taken 08:00] Levothyroxine [Synthroid] 88 mcg PO QAMAC 01/26/17 [History Confirmed 01/26/17 Last Taken 01/25/17 08:00] Multivitamin [One Daily Essential] 1 each PO DAILY 01/26/17 [History Confirmed 01/26/17 Last Taken 01/25/17 09:00] Vitamin B Complex 1 cap PO DAILY 01/26/17 [History Confirmed 01/26/17 Last Taken 01/25/17 08:00] Oseltamivir Phosphate 75 mg PO BID 01/29/17 [History Confirmed 01/29/17 Last Taken 01/25/17] Triazolam [Halcion] 0.5 mg PO HS 01/29/17 [History Confirmed 01/29/17 Last Taken Unknown] Medical - DS: Hosp Hospital course: Mr. Tucker is a 71 year old Female who was admitted to the hospital for septic shock due to complicated uti. she also had weakness and concern for stroke like symtoms, but CT head was neg and her symptoms were attributed to infections etiology. Septic Shock/ E Coli UTI- The patient was treated in the ICU with IV fluids, pressors and broad spectrum ABX, she responded to treatment very well. Her Urine culture was positive for londono sensitive E coli, her ABX changed to cephalaxin on discahrge. She will complete total of 14 days of antibiotics. On discharge she is afebrile and hemodynamically stable, able to tolerate PO. Renal USG was negative. Alcohol abuse/ withdrawal: patient has h/o heavy etoh consumption, she was given wine with meals to help prevent withdrawals, she had mild withdrawals which responded well to ativan. She will be discharged home with po lorazepam to help her with her etoh withdrwal, she is planning not to resume etoh consumption again. Pt has been counselled and resources provided by case management. Abnl LFt : Pt has elevated ast/ alk phos since admission, Liver USG showed asymetric gall bladder wall thickening, Surgery consulted, MRI abdomen showed that no cancer present, and likely fluid around GB is due to low albumin, pt has no symptoms. Patient lft on discharge are trending down, she will have to have this followed by her pcp after discharge. Surgery did not recommend intervention at this time. CKD: Pt has elevated creat througout the stay in the hospital , she presented with creat of 1.7, on discharge was 1.4, renal usg was negative, not sure what her baseline function is. Will need to be followed up by PCP. She was seen by PT and noted to have ongoing PT needs at home. She will be discharged with home PT. Discharge diagnosis: UTI, Abnormal LFT, - Time Spent with Patient Total time spent providing and/or coordinating discharge services: Greater than 30 minutes Medical - DS: Exam - Constitutional Vitals: Vital Signs Temp Pulse Resp BP BP BP Pulse Ox 01/30/17 07:07 96.7 F L 64 16 155/56 90 01/30/17 04:00 98.2 F 63 16 128/67 90 01/30/17 00:00 98.1 F 68 18 147/84 92 01/29/17 20:00 98.0 F 68 18 118/67 94 01/29/17 16:00 97.1 F L 65 152/71 93 01/29/17 12:00 97.5 F L 69 20 168/67 96 01/29/17 09:44 93 Intake and Output 01/29/17 01/30/17 01/30/17 21:59 05:59 13:59 Intake Total 390 / 390 650 / 650 240 / 240 Output Total 800 / 800 451 / 451 350 / 350 Balance -410 / -410 199 / 199 -110 / -110 Intake: IV 50 / 50 50 / 50 Zosyn 2.25 gm In Dextrose 50 / 50 50 / 50 5% in Water 50 ml @ 100 mls/hr IV Q6H [facility] Rx#: [id number] Oral 340 / 340 600 / 600 240 / 240 Output: Void Amount 800 / 800 450 / 450 350 / 350 # of times incontinent of 1 / urine Other: Meal Dinner Percent of Meal Consumed 50% # Bowel Movements 1 1 Weight 182 lb Additional comments: Constitutional; Afebrile, cooperative, alert, not in distress. Eyes- No icterus, , No periorbital swelling Ears- Ext ear normal, hearing normal to conversation. Neck- Midline trachea, supple Respiratory system: Air Entry equal on both sides, No crackles or wheezing, no rhonchi. CVS- Rate rhythm regular, S1,S2 heard, no gallop, no rub. 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 Medical - DS: Data Labs on day of discharge: Labs from last 24 hours 01/30/17 01/30/17 03:49 03:49 WBC 8.4 RBC 3.14 L Hgb 10.4 L Hct 31.0 L MCV 98.6 MCH 33.0 MCHC 33.4 RDW 14.7 H Plt Count 246 MPV 8.4 Total Counted 100 Seg Neutrophils % 73 Band Neutrophils % 1 Lymphocytes % 9 L Monocytes % (Manual) 12 Eosinophils % (Manual) 5 WBC Morphology Abnorm A Toxic Granulation 1+ A Dohle Bodies 1+ A Platelet Estimate Normal RBC Morphology Normal Sodium 137 Potassium 3.1 L Chloride 103 Carbon Dioxide 20 L Anion Gap 14.0 BUN 23 Creatinine 1.4 H GFR Calculation 38 Glucose 99 Uric Acid 5.9 Calcium 8.0 L Phosphorus 2.5 L Magnesium 2.0 Total Bilirubin 0.6 Direct Bilirubin 0.3 GGT 164 H AST 174 H ALT 96 H Alkaline Phosphatase 191 H Lactate Dehydrogenase 231 Total Protein 4.9 L Albumin 2.2 L Globulin 2.7 Albumin/Globulin Ratio 0.8 L Triglycerides 141 Preliminary micro results at discharge 01/26/17 13:52 Blood Culture - Preliminary Blood 01/26/17 13:45 Blood Culture - Preliminary Blood Medical - DS: A/P - Patient/Caregiver Discharge Instructions Activity: increase activity as tolerated Diet: Regular Diet Additional Instructions: Avoid alcohol. Go to ER if worsening condition Take medications as prescribed Follow up with PCP in 7-10 days Follow up on your liver function test and renal function test with your primary provider. Prescriptions: Cephalexin [Keflex] 500 mg PO BID #20 capsule LORazepam [Ativan] 1 mg PO Q6HP PRN #30 tablet PRN Reason: Alcohol Withdrawal - Follow up Plan Follow up with: Mini Man MD [Primary Care Provider] - Disposition: Home Health Service Prognosis: Fair Rehab Potential: Fair I certify that the patient requires SNF services: No Overall status at discharge: patient is progressing back to baseline Medical - DS: Qual - VTE Deep Vein Thrombosis/Pulmonary Embolism Present on Admission: No
[2017-01-30] MEDS ORDERED: LORazepam 2 MG/ML VIAL IV ONE (11:07)
== END 2017-01-30 13:00 | disposition home health service (06) ==
LOC: ED 04:13 → ICU 06:45 → MEDSUR 01-27 14:12
PROVIDERS: ADMIT Internal Medicine; ATTEND Internal Medicine

== ENCOUNTER 2017-12-08 07:47 | Inpatient (IN) ==
[2017-12-08] MEDS ORDERED: LACTATED RINGERS 1,000 ML IV ONE ×2 (07:54→08:52)
--- NOTE | 2017-12-08 08:07 | Emergency Department Note ---
General Adult HPI - General Chief complaint: Weakness Stated complaint: Weakness Time Seen by Provider: 12/08/17 07:59 Source: patient Mode of arrival: ambulatory Limitations: no limitations - History of Present Illness HPI Narrative: This patient feels like she is getting septic again. She has had cough productive of green phlegm and her O2 saturation was low. She was recently on a cruise and down in [place] on the ship she was treated with IV Levaquin for 2 days and then p.o. She has been off that for couple of weeks now. She has no nausea vomiting shortness of breath back pain abdominal pain fever chills or dysuria. - Related Data Home Medications Medication Instructions Recorded Confirmed Atenolol [Tenormin] 100 mg PO QDAY 09/08/15 09/16/17 Omeprazole [Prilosec] 20 mg PO ACB 09/08/15 09/16/17 Ascorbic Acid [Vitamin C] 1,000 mg PO DAILY 01/26/17 09/16/17 Calcium Carbonate/Vitamin D3 600 mg PO DAILY 01/26/17 09/16/17 [Calcium 600 + Vit D Tablet] Furosemide [Lasix] 20 mg PO DAILY 01/26/17 09/16/17 Gabapentin 900 mg PO TID 01/26/17 09/16/17 Levothyroxine [Synthroid] 88 mcg PO QAMAC 01/26/17 09/16/17 Multivitamin [One Daily Essential] 1 each PO DAILY 01/26/17 09/16/17 Vitamin B Complex 1 cap PO DAILY 01/26/17 09/16/17 Triazolam [Halcion] 0.5 mg PO HS 01/29/17 09/16/17 alpha lipoic acid 300 mg capsule 600 mg PO QDAY cap 08/10/17 09/16/17 coenzyme Q10 200 mg capsule 200 mg PO QDAY 08/10/17 09/16/17 duloxetine 60 mg capsule,delayed 60 mg PO QDAY 08/10/17 09/16/17 release estradiol 0.5 mg tablet See Label Instructions PO .2XW tab 08/10/17 09/16/17 ipratropium bromide 42 mcg (0.06 1 spray INTRANASAL TID PRN ml 08/10/17 %) nasal spray medroxyprogesterone 2.5 mg tablet 2.5 mg PO QDAY PRN 08/10/17 09/16/17 methylsulfonylmethane 1,000 mg See Label Instructions PO QDAY cap 08/10/17 capsule ondansetron HCl 4 mg tablet 4 mg PO Q4H PRN 08/10/17 09/16/17 vitamin E 400 unit capsule 400 unit PO QDAY 08/10/17 09/16/17 Previous Rx's Medication Instructions Recorded LORazepam [Ativan] 1 mg PO Q6HP PRN #30 tab 01/30/17 E2/E3- 20/80 1mg/gm 0.5 g TOPICAL DIRECTED #60 g 08/16/17 sulfamethoxazole 800 1 tab PO Q12H #30 tab 09/16/17 mg-trimethoprim 160 mg tablet Allergies Allergy/AdvReac Type Severity Reaction Status Date / Time codeine Allergy Unknown Unknown Unverified 09/16/17 10:50 hydrochlorothiazide Allergy Unknown Unknown Unverified 09/16/17 10:50 Review of Systems All systems ED: reviewed and negative except as stated. Past Medical History - Past Medical History [facility] Narrative: Medical History (Last Reviewed 09/16/17 @ 11:15 by RHETT Manzo) Candidal intertrigo (Chronic) Vaginal yeast infection (Chronic) Stress incontinence (Chronic) Cyanosis (Chronic) Lower extremity weakness (Chronic) Knee crepitus (Chronic) Vulvar atrophy (Chronic) Vulvitis (Chronic) Wound of left leg (Chronic) Tenosynovitis (Chronic) Simple bruising (Chronic) Peptic ulcer (Chronic) Colon polyp (Chronic) Microcalcifications of the breast (Chronic) Lumbar strain (Chronic) Vaginal itching (Chronic) Pelvic fracture (Chronic) Nausea (Chronic) History of low back pain (Chronic) Hypercholesterolemia (Chronic) Abdominal pain (Chronic) Flank pain (Chronic) Fatty liver (Chronic) Dysuria (Chronic) Drug therapy changed (Chronic) Diverticulosis (Chronic) Zazueta esophagus (Chronic) Vasomotor rhinitis (Chronic) Urinary urgency (Chronic) Stress incontinence, female (Chronic) Pyuria (Chronic) Neuropathic pain (Chronic) Lymphocytic colitis (Chronic) Liver disease, alcoholic (Chronic) Hypothyroidism (Chronic) Hyperlipidemia (Chronic) Hormone replacement therapy (postmenopausal) (Chronic) Fibroid uterus (Chronic) Esophagitis, reflux (Chronic) Diarrhea (Chronic) Depression (Chronic) Anemia in chronic illness (Chronic) Alcoholism in recovery (Chronic) Abnormal laboratory test (Chronic) Muscle weakness (Chronic) Difficulty walking (Chronic) Limb weakness (Chronic) Numbness and tingling (Chronic) Arthralgia (Chronic) Incontinence (Chronic) Pelvic pain (Chronic) Neuropathy (Chronic) Pain on intercourse (Chronic) Groin rash (Chronic) Acid reflux (Chronic) Hypertension (Chronic) Insomnia (Chronic) Anemia (Chronic) Allergic rhinitis (Chronic) Anxiety (Chronic) Cellulitis (Chronic) UTI (urinary tract infection) (Chronic) Delirium (Chronic) Acute kidney failure (Chronic) Dehydration (Chronic) Elevated liver enzymes (Chronic) Septic shock (Chronic) Past Surgical History (Last Reviewed 09/16/17 @ 11:15 by RHETT Manzo) History of appendectomy (Chronic) History of breast biopsy (Chronic) History of breast surgery (Chronic) History of cataract surgery (Chronic) History of colonoscopy (Chronic 01/19/12) History of esophagogastroduodenoscopy (EGD) (Chronic) Family History (Last Reviewed 09/16/17 @ 11:15 by RHETT Manzo) Family/Other Hypertension Stroke Fibromyalgia Breast cancer Cancer Colon cancer Dementia Osteoporosis of forearm Glaucoma Medical history: Reports: GERD, hypertension, thyroid disease Surgical history ED: Reports: appendectomy - Social History smoking status: Former smoker Physical Exam Limitations: no limitations General appearance: alert Head: atraumatic Eye: Present: normal appearance ENT: normal exam Neck: Present: normal inspection Chest: Present: normal inspection Respiratory: Present: normal lung sounds bilaterally Cardiovascular: Present: regular rate, normal rhythm, normal heart sounds Abdominal: Present: soft. Absent: distention, tenderness Neurological: Present: alert Psychiatric: Present: normal affect, normal mood Skin: Present: warm, dry, intact Course Vital Signs Temperature 97.2 F 12/08/17 07:48 Pulse Rate 77 12/08/17 07:48 Respiratory Rate 26 H 12/08/17 07:48 Blood Pressure 120/58 12/08/17 07:48 Pulse Oximetry (%) 78 L 12/08/17 07:48 Temperature 97.2 F 12/08/17 07:48 Pulse Rate 77 12/08/17 07:48 Respiratory Rate 26 H 12/08/17 07:48 Blood Pressure 120/58 12/08/17 07:48 Pulse Oximetry (%) 78 L 12/08/17 07:48 Medical Decision Making - Lab Data Result diagrams: 12/08/17 08:05 12/08/17 08:05 Lab Results 12/08/17 Range/Units 08:05 WBC 6.5 (4.5-11.0) K/mcL RBC 3.62 L (4.00-5.20) M/mcL Hgb 11.9 L (12.0-15.0) g/dL Hct 34.8 L (36.0-48.0) % MCV 96.2 (80.0-100.0) fL MCH 32.9 (26.0-34.0) pg MCHC 34.3 (31.0-36.0) g/dL RDW 14.8 H (11.5-14.5) % Plt Count 328 (140-440) K/mcL MPV 6.7 L (7.4-10.4) fL Gran % 81.4 H (38.0-78.0) % Lymph % (Auto) 7.4 L (15.5-49.0) % Sherman % (Auto) 6.8 (1.0-12.0) % Eos % (Auto) 3.7 (0.0-7.0) % Baso % (Auto) 0.7 (0.0-2.0) % Gran # 5.3 (1.8-8.0) K/mcL Lymph # (Auto) 0.5 L (1.5-4.8) K/mcL Sherman # (Auto) 0.4 (0.1-0.9) K/mcL Eos # (Auto) 0.2 (0.0-0.7) K/mcL Baso # (Auto) 0 (0.0-0.3) K/mcL Disposition Pt seen by DISPLAY MANAGER/PA only: No Referrals: Mini Man MD [Primary Care Provider] -
[2017-12-08] MEDS ORDERED: AZITHROMYCIN 500 MG in DEXTROSE 5% IN WATER 250 ML IV ONE (08:49)
[2017-12-08] MEDS ORDERED: cefTRIAXone 1 GM VIAL IV ONE (08:49)
[2017-12-08 08:50] LABS: Basophils # (Auto) 0 K/mcL (0.0-0.3); Basophils % (Auto) 0.7 % (0.0-2.0); Eosinophils # (Auto) 0.2 K/mcL (0.0-0.7); Eosinophils % (Auto) 3.7 % (0.0-7.0); Granulocytes % (Auto) 81.4 % (38.0-78.0); Lymphocytes # (Auto) 0.5 K/mcL (1.5-4.8); Lymphocytes % (Auto) 7.4 % (15.5-49.0); Mean Cell Volume 96.2 fL (80.0-100.0); Mean Corpuscular HGB Conc 34.3 g/dL (31.0-36.0); Mean Corpuscular Hemoglobin 32.9 pg (26.0-34.0); Monocytes # (Auto) 0.4 K/mcL (0.1-0.9); Monocytes % (Auto) 6.8 % (1.0-12.0); Platelet Count 328 K/mcL (140-440); RBC 3.62 M/mcL (4.00-5.20); Red Cell Distribution Width 14.8 % (11.5-14.5)
--- NOTE | 2017-12-08 08:51 | XRay Report ---
HISTORY: Reason for Exam:cough, low O2 sats FINDINGS: Prominent increased interstitial lung markings are present bilaterally. This has a reticular pattern. The greatest involvement is centrally in the right lung. This has become worse since 01/26/17. There may be a superimposed infiltrate posteriorly in the right lower lobe. The heart size is normal. The pulmonary vessels are obscured by the pulmonary fibrosis. No pleural effusion is present and there is no apparent adenopathy. IMPRESSION: Worsening pulmonary fibrosis Possible superimposed right lower lobe pneumonia Interpreted and Authenticated by: Kalpesh Argueta 12/08/17
[2017-12-08 09:14] LABS: ALT/SGPT 10 U/l (0-40); Albumin 3.9 gm/dL (3.2-5.2); Albumin/Globulin Ratio 1.3 (1.0-2.3); Alkaline Phosphatase 49 U/L (39-117); Blood Urea Nitrogen 24 mg/dl (8-23)
[2017-12-08] MEDS ORDERED: IPRATROPIUM/ALBUTEROL 3 ML AMPUL.NEB NEB ONE (09:50)
--- NOTE | 2017-12-08 10:29 | Emergency Department Note ---
SOB HPI - General Chief Complaint: Weakness Stated Complaint: Weakness Time Seen by Provider: 12/08/17 07:59 Source: patient Mode of arrival: ambulatory Limitations: no limitations - History of Present Illness See dictated history and physical by Dr. spring. I am seeing patient after the change in shift. She does not normally use oxygen at home. She was on Levaquin somewhere between the and which ended her Levaquin while she was on a cruise. She was diagnosed with a left lower lobe pneumonia then. She was on no antibiotic's afterwards and developed her symptoms including fever, green phlegm, shortness of breath worsening and comes to the ER today because of this. Here she is found to have hypoxia and a right lower lobe pneumonia. - Related Data Home Medications Medication Instructions Recorded Confirmed Atenolol [Tenormin] 100 mg PO QDAY 09/08/15 09/16/17 Omeprazole [Prilosec] 20 mg PO ACB 09/08/15 09/16/17 Ascorbic Acid [Vitamin C] 1,000 mg PO DAILY 01/26/17 09/16/17 Calcium Carbonate/Vitamin D3 600 mg PO DAILY 01/26/17 09/16/17 [Calcium 600 + Vit D Tablet] Furosemide [Lasix] 20 mg PO DAILY 01/26/17 09/16/17 Gabapentin 900 mg PO TID 01/26/17 09/16/17 Levothyroxine [Synthroid] 88 mcg PO QAMAC 01/26/17 09/16/17 Multivitamin [One Daily Essential] 1 each PO DAILY 01/26/17 09/16/17 Vitamin B Complex 1 cap PO DAILY 01/26/17 09/16/17 Triazolam [Halcion] 0.5 mg PO HS 01/29/17 09/16/17 alpha lipoic acid 300 mg capsule 600 mg PO QDAY cap 08/10/17 09/16/17 coenzyme Q10 200 mg capsule 200 mg PO QDAY 08/10/17 09/16/17 duloxetine 60 mg capsule,delayed 60 mg PO QDAY 08/10/17 09/16/17 release estradiol 0.5 mg tablet See Label Instructions PO .2XW tab 08/10/17 09/16/17 ipratropium bromide 42 mcg (0.06 1 spray INTRANASAL TID PRN ml 08/10/17 %) nasal spray medroxyprogesterone 2.5 mg tablet 2.5 mg PO QDAY PRN 08/10/17 09/16/17 methylsulfonylmethane 1,000 mg See Label Instructions PO QDAY cap 08/10/17 capsule ondansetron HCl 4 mg tablet 4 mg PO Q4H PRN 08/10/17 09/16/17 vitamin E 400 unit capsule 400 unit PO QDAY 08/10/17 09/16/17 Previous Rx's Medication Instructions Recorded LORazepam [Ativan] 1 mg PO Q6HP PRN #30 tab 01/30/17 E2/E3- 20/80 1mg/gm 0.5 g TOPICAL DIRECTED #60 g 08/16/17 sulfamethoxazole 800 1 tab PO Q12H #30 tab 09/16/17 mg-trimethoprim 160 mg tablet Allergies Allergy/AdvReac Type Severity Reaction Status Date / Time codeine Allergy Unknown Unknown Unverified 09/16/17 10:50 hydrochlorothiazide Allergy Unknown Unknown Unverified 09/16/17 10:50 Past Medical History - Past Medical History Medical history: Reports: GERD, hypertension, thyroid disease Surgical history ED: Reports: appendectomy - Social History smoking status: Former smoker Physical Exam Limitations: no limitations General appearance: alert Course Vital Signs Temperature 97.2 F 12/08/17 07:48 Pulse Rate 77 12/08/17 07:48 Respiratory Rate 26 H 12/08/17 07:48 Blood Pressure 120/58 12/08/17 07:48 Pulse Oximetry (%) 78 L 12/08/17 07:48 Temperature 97.2 F 12/08/17 07:48 Pulse Rate 88 12/08/17 10:06 Respiratory Rate 25 H 12/08/17 10:06 Blood Pressure 156/67 12/08/17 09:31 Pulse Oximetry (%) 86 L 12/08/17 09:41 Shortness of Breath/Dyspnea - [facility] Narrative Medical decision making narrative: Patient's labs came back with a normal white count and a normal lactic acid but a significantly elevated pro-calcitonin. With these findings and new findings of the right lower lobe pneumonia on a background of pulmonary fibrosis and new hypoxia plus the fever and shortness of breath she is needing to be hospitalized for IV antibiotics. She was given Rocephin and azithromycin in the emergency room. I discussed her case with the hospitalist who kindly accepted care of this patient. - Lab Data Result diagrams: 12/08/17 08:05 12/08/17 08:05 Lab Results 12/08/17 12/08/17 12/08/17 Range/Units 08:05 08:05 08:05 WBC 6.5 (4.5-11.0) K/mcL RBC 3.62 L (4.00-5.20) M/mcL Hgb 11.9 L (12.0-15.0) g/dL Hct 34.8 L (36.0-48.0) % MCV 96.2 (80.0-100.0) fL MCH 32.9 (26.0-34.0) pg MCHC 34.3 (31.0-36.0) g/dL RDW 14.8 H (11.5-14.5) % Plt Count 328 (140-440) K/mcL MPV 6.7 L (7.4-10.4) fL Gran % 81.4 H (38.0-78.0) % Lymph % (Auto) 7.4 L (15.5-49.0) % Haines % (Auto) 6.8 (1.0-12.0) % Eos % (Auto) 3.7 (0.0-7.0) % Baso % (Auto) 0.7 (0.0-2.0) % Gran # 5.3 (1.8-8.0) K/mcL Lymph # (Auto) 0.5 L (1.5-4.8) K/mcL Haines # (Auto) 0.4 (0.1-0.9) K/mcL Eos # (Auto) 0.2 (0.0-0.7) K/mcL Baso # (Auto) 0 (0.0-0.3) K/mcL VBG Lactic Acid 1.4 (0.5-2.2) mmol/L Sodium 138 (133-145) mmol/L Potassium 4.5 (3.3-5.1) mmol/L Chloride 98 (96-108) mmol/L Carbon Dioxide 24 (22-30) mmol/L Anion Gap 16.0 (8-16) BUN 24 H (8-23) mg/dl Creatinine 1.3 H (0.6-1.1) mg/dl GFR Calculation 41 Glucose 111 H (70-105) mg/dL Calcium 8.7 (8.6-10.4) mg/dl Total Bilirubin 0.2 (0.0-1.0) mg/dL AST 26 (0-37) U/l ALT 10 (0-40) U/l Alkaline Phosphatase 49 (39-117) U/L Total Protein 6.9 (5.9-8.4) gm/dL Albumin 3.9 (3.2-5.2) gm/dL Globulin 3.0 (2.2-3.7) gm/dL Albumin/Globulin Ratio 1.3 (1.0-2.3) Procalcitonin (<0.10) ng/mL 12/08/17 Range/Units 08:05 WBC (4.5-11.0) K/mcL RBC (4.00-5.20) M/mcL Hgb (12.0-15.0) g/dL Hct (36.0-48.0) % MCV (80.0-100.0) fL MCH (26.0-34.0) pg MCHC (31.0-36.0) g/dL RDW (11.5-14.5) % Plt Count (140-440) K/mcL MPV (7.4-10.4) fL Gran % (38.0-78.0) % Lymph % (Auto) (15.5-49.0) % Haines % (Auto) (1.0-12.0) % Eos % (Auto) (0.0-7.0) % Baso % (Auto) (0.0-2.0) % Gran # (1.8-8.0) K/mcL Lymph # (Auto) (1.5-4.8) K/mcL Haines # (Auto) (0.1-0.9) K/mcL Eos # (Auto) (0.0-0.7) K/mcL Baso # (Auto) (0.0-0.3) K/mcL VBG Lactic Acid (0.5-2.2) mmol/L Sodium (133-145) mmol/L Potassium (3.3-5.1) mmol/L Chloride (96-108) mmol/L Carbon Dioxide (22-30) mmol/L Anion Gap (8-16) BUN (8-23) mg/dl Creatinine (0.6-1.1) mg/dl GFR Calculation Glucose (70-105) mg/dL Calcium (8.6-10.4) mg/dl Total Bilirubin (0.0-1.0) mg/dL AST (0-37) U/l ALT (0-40) U/l Alkaline Phosphatase (39-117) U/L Total Protein (5.9-8.4) gm/dL Albumin (3.2-5.2) gm/dL Globulin (2.2-3.7) gm/dL Albumin/Globulin Ratio (1.0-2.3) Procalcitonin 2.85 (<0.10) ng/mL Disposition Pt seen by MANAGER DOCUMENTATION/PA only: No Clinical Impression: Hypoxia, Elevated procalcitonin RLL pneumonia Qualifiers: Pneumonia type: due to unspecified organism Qualified Code(s): J18.1 - Lobar pneumonia, unspecified organism Disposition: Xfer As Inpt ([facility]) Condition: Fair Referrals: Mini Man MD [Primary Care Provider] -
--- NOTE | 2017-12-08 11:25 | Internal Med History&Physical ---
Medical - H&P: HPI Patient information: Note initiated : 12/08/17 at 11:20 am Service Date, if different from initiated Date: [] Patient: Sylvia Tucker a 72 y/o F admitted on for Weakness. Chief Complaint: [] History of present illness: Ms. Tucker is a 72 year old F emale with h/o heavy etoh use, recurrent UTI, peripheral neuropathy, htn presents to the ER today for not feeling well According to the patient she was on a cruise in [place], where she fell sick, she was nose with pneumonia, and was treated by the physician on the cruise ship. She was given levofloxacin intravenously for 3 days and then continued oral levofloxacin for another 4-5 days. Patient notes that she had improved from this illness. On her way back on december this month she was starting to feel sick again, cough shortness of breath of exertion and some wheezing. Subjective sensation of fever and some chills. The patient's cough was associated with yellowish sputum, no blood in the sputum. The patient's breathing cough and weakness continued to get worse over the next few days and therefore the patient presented to the emergency room for further evaluation The patient denies any complaints, only sick contact is likely on the flight back. The patient has no headache, has chronic runny nose, no watery eyes no diplopia or changes in hearing, no difficulty in swallowing, has shortness of breath on exertion, has cough, she has no chest pain no palpitations. No nausea no vomiting no abdominal pain no bladder or bowel complaints. No joint pains denies any acute depression or anxiety. 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 No easy bruising or bleeding, She does have wheezing. in the emergency room the patient was afebrile, temperature 97.2, heart rate of 88, blood pressure 1 56 x 67, respiratory rate around 24-25, she was saturating 86% on room air, on presentation she was 76 or 78% on room air her oxygen saturation corrected with oxygen supplementation via nasal cannula. The patient was given Rocephin and Zithromax in the ED and presented for admission. The patient has a history of alcohol use, presently is drinking 1 drink 3 times a day with meals according to the . The patient obviously drank heavily on the cruise ship. The patient notes that they have set up a regime to help her cut back on the drinking All systems: reviewed and no additional remarkable complaints except as stated ( As per HPI) Medical - H&P: H Medical history: Medical History (Last Reviewed 09/16/17 @ 11:15 by RHETT Manzo) Candidal intertrigo (Chronic) Vaginal yeast infection (Chronic) Stress incontinence (Chronic) Cyanosis (Chronic) Lower extremity weakness (Chronic) Knee crepitus (Chronic) Vulvar atrophy (Chronic) Vulvitis (Chronic) Wound of left leg (Chronic) Tenosynovitis (Chronic) Simple bruising (Chronic) Peptic ulcer (Chronic) Colon polyp (Chronic) Microcalcifications of the breast (Chronic) Lumbar strain (Chronic) Vaginal itching (Chronic) Pelvic fracture (Chronic) Nausea (Chronic) History of low back pain (Chronic) Hypercholesterolemia (Chronic) Abdominal pain (Chronic) Flank pain (Chronic) Fatty liver (Chronic) Dysuria (Chronic) Drug therapy changed (Chronic) Diverticulosis (Chronic) Zazueta esophagus (Chronic) Vasomotor rhinitis (Chronic) Urinary urgency (Chronic) Stress incontinence, female (Chronic) Pyuria (Chronic) Neuropathic pain (Chronic) Lymphocytic colitis (Chronic) Liver disease, alcoholic (Chronic) Hypothyroidism (Chronic) Hyperlipidemia (Chronic) Hormone replacement therapy (postmenopausal) (Chronic) Fibroid uterus (Chronic) Esophagitis, reflux (Chronic) Diarrhea (Chronic) Depression (Chronic) Anemia in chronic illness (Chronic) Alcoholism in recovery (Chronic) Abnormal laboratory test (Chronic) Muscle weakness (Chronic) Difficulty walking (Chronic) Limb weakness (Chronic) Numbness and tingling (Chronic) Arthralgia (Chronic) Incontinence (Chronic) Pelvic pain (Chronic) Neuropathy (Chronic) Pain on intercourse (Chronic) Groin rash (Chronic) Acid reflux (Chronic) Hypertension (Chronic) Insomnia (Chronic) Anemia (Chronic) Allergic rhinitis (Chronic) Anxiety (Chronic) Cellulitis (Chronic) UTI (urinary tract infection) (Chronic) Delirium (Chronic) Acute kidney failure (Chronic) Dehydration (Chronic) Elevated liver enzymes (Chronic) Septic shock (Chronic) Surgical history: Past Surgical History (Last Reviewed 09/16/17 @ 11:15 by RHETT Manzo) History of appendectomy (Chronic) History of breast biopsy (Chronic) History of breast surgery (Chronic) History of cataract surgery (Chronic) History of colonoscopy (Chronic 01/19/12) History of esophagogastroduodenoscopy (EGD) (Chronic) Pertinent family history: Family History (Last Reviewed 09/16/17 @ 11:15 by RHETT Manzo) Family/Other Hypertension Stroke Fibromyalgia Breast cancer Cancer Colon cancer Dementia Osteoporosis of forearm Glaucoma Social history: lives with , heavy alcohol user, 3 drinks a day at least. Denies any smoking actively history of remote smoking in the past. Denies any recreational drug use Medical - H&P: Meds Home Medications Medication Instructions Recorded Confirmed Type Atenolol [Tenormin] 100 mg PO QDAY 09/08/15 12/08/17 History Omeprazole [Prilosec] 20 mg PO ACB 09/08/15 12/08/17 History Ascorbic Acid [Vitamin C] 1,000 mg PO DAILY 01/26/17 12/08/17 History Calcium Carbonate/Vitamin D3 600 mg PO DAILY 01/26/17 12/08/17 History [Calcium 600 + Vit D Tablet] Furosemide [Lasix] 20 mg PO DAILY 01/26/17 12/08/17 History Gabapentin 600 mg PO TID 01/26/17 12/08/17 History Levothyroxine [Synthroid] 88 mcg PO QAMAC 01/26/17 12/08/17 History Multivitamin [One Daily Essential] 1 each PO DAILY 01/26/17 12/08/17 History Vitamin B Complex 1 cap PO DAILY 01/26/17 12/08/17 History Triazolam [Halcion] 0.5 mg PO HS 01/29/17 12/08/17 History alpha lipoic acid 300 mg capsule 600 mg PO QDAY cap 08/10/17 12/08/17 History coenzyme Q10 200 mg capsule 200 mg PO QDAY 08/10/17 12/08/17 History duloxetine 60 mg capsule,delayed 60 mg PO QDAY 08/10/17 12/08/17 History release estradiol 0.5 mg tablet See Label Instructions PO .2XW tab 08/10/17 12/08/17 History ipratropium bromide 42 mcg (0.06 1 spray INTRANASAL TID PRN ml 08/10/17 History %) nasal spray methylsulfonylmethane 1,000 mg See Label Instructions PO QDAY cap 08/10/1705/20 History capsule ondansetron HCl 4 mg tablet 4 mg PO Q4H PRN 08/10/17 12/08/17 History vitamin E 400 unit capsule 400 unit PO QDAY 08/10/17 12/08/17 History E2/E3- 20/80 1mg/gm 0.5 g TOPICAL DIRECTED #60 g 08/16/17 12/08/17 Rx Allergies Allergy/AdvReac Type Severity Reaction Status Date / Time codeine Allergy Unknown Unknown Unverified 09/16/17 10:50 hydrochlorothiazide Allergy Unknown Unknown Unverified 09/16/17 10:50 Medical - H&P: Exam - Constitutional Vitals: Temp Pulse Resp BP Pulse Ox 97.2 F 84 17 132/66 90 12/08/17 07:48 12/08/17 10:41 12/08/17 10:41 12/08/17 10:31 12/08/17 10:41 Exam: GENERAL: The patient is a well-developed, well-nourished in no apparent distress. Is alert and oriented x3. VITAL SIGNS: Reviewed and as noted elsewhere. HEENT: Head is normocephalic and atraumatic. Extraocular muscles are intact. Pupils are equal, round, and reactive to light. Nares appeared normal. Mouth appears any without lesions. Mucous membranes are moist. NECK: Normal to inspection, Supple, No lymphadenopathy or thyromegaly. LUNGS: at entry equal on both sides, patient has bilateral crackles predominately expiratory in nature. She also has bilateral expiratory wheezing. She has no axillary muscle use, she has no evidence of respiratory distress, able to speak full sentences. HEART: Regular rate and rhythm normal, S1 and S2 heard, no Gallop, S3 or Rub Noted, No Gross murmur heard. ABDOMEN: Soft, nontender, and nondistended. Positive bowel sounds. No hepatosplenomegaly was noted. EXTREMITIES: No cyanosis, clubbing, rash, lesions or edema. NEUROLOGIC: Cranial nerves II through XII are grossly intact. Motor and Sensory System Grossly Intact PSYCHIATRIC: Normal affect, Normal Mood. Appropriate Behavior. SKIN: No ulceration or wounds noted, No jaundice, No rash noted. Medical - H&P: Reslt - Labs CBC & Chem 7: 12/08/17 08:05 12/08/17 08:05 Labs: Short CBC 12/08/17 Range/Units 08:05 WBC 6.5 (4.5-11.0) K/mcL Hgb 11.9 L (12.0-15.0) g/dL Hct 34.8 L (36.0-48.0) % Plt Count 328 (140-440) K/mcL BMP 12/08/17 08:05 Sodium 138 Potassium 4.5 Chloride 98 Carbon Dioxide 24 BUN 24 H Creatinine 1.3 H Glucose 111 H Calcium 8.7 Liver Function 12/08/17 Range/Units 08:05 Total Bilirubin 0.2 (0.0-1.0) mg/dL AST 26 (0-37) U/l ALT 10 (0-40) U/l Alkaline Phosphatase 49 (39-117) U/L Albumin 3.9 (3.2-5.2) gm/dL Medical - H&P: A/P - Narrative A/P Narrative: A/P Health care associated Pneumonia Sepsis Hypertension Alcoholism Peripheral Neuropathy Recurrent UTI in past, last UTi 2 months ago Hypothyroidism Hypertension Pulmonary fibrosis? noted on Chest X Ray COPD? vs Reactive Air way disease Plan Admit to med surg Pt is hemodynamically stable, lactate is normal, IV vancomycin and cefepime for HCAP pna IV fluids, IV banana bag today, ciwa protocol, po thiamine and multivitamin resume home meds once verified DVT hep sq Diet regular, Ok for wine or beer with meals, plans to keep on drinking Full code.
[2017-12-08] MEDS ORDERED: cloNIDine HCL 0.1 MG TABLET PO PRN (11:55)
[2017-12-08] MEDS ORDERED: ONDANSETRON 4 MG/2 ML VIAL IV PRN ×2 (11:55→15:31)
[2017-12-08] MEDS ORDERED: VANCOMYCIN PER PHARMACY IV SCH ×2 (11:55→15:31)
[2017-12-08] MEDS ORDERED: LACTATED RINGERS 1,000 ML IV SCH (11:55)
[2017-12-08] MEDS ORDERED: ACETAMINOPHEN 325 MG TABLET PO PRN ×2 (11:55→15:31)
[2017-12-08] MEDS ORDERED: LORazepam 2 MG/ML VIAL IV PRN ×2 (11:55→15:31)
[2017-12-08] MEDS ORDERED: POTASSIUM CHLORIDE 20 MEQ, MAGNESIUM SULFATE 16.24 MEQ, THIAMINE 100 MG, MVI, ADULT NO.... IV SCH ×2 (12:30→15:31)
[2017-12-08] MEDS: methylPREDNISolone SOD SUCC 125 MG/2 ML VIAL IV SCH ×2 (12:30→21:24)
[2017-12-08] MEDS ORDERED: CEFEPIME 1 GM VIAL IV SCH (13:00)
[2017-12-08] MEDS ORDERED: MAGNESIUM SULFATE 2 GM/50 ML BAG IV ONE ×2 (13:10→15:31)
[2017-12-08] MEDS ORDERED: TERBUTALINE 1 MG/ML VIAL SQ ONE (13:11)
[2017-12-08] MEDS ORDERED: FUROSEMIDE 40 MG/4 ML VIAL IV ONE ×2 (13:12→13:13)
--- NOTE | 2017-12-08 13:32 | XRay Report ---
HISTORY: Reason for Exam:hypoxia FINDINGS: Moderate generalized alveolar infiltrates have developed in both lungs, right worse than left. These are superimposed upon underlying pulmonary fibrosis. This has become significantly worse since the prior study done at 8:13 AM on the same date. The rapid deterioration suggests pulmonary edema. Rapidly evolving pneumonia is possible. Lung volumes are normal. There is no pneumothorax or pleural effusion. The heart size is within normal limits. IMPRESSION: Rapidly worsening infiltrates in both lungs Interpreted and Authenticated by: Kalpesh Argueta 12/08/17
[2017-12-08 13:42] LABS: Basophils # (Auto) 0 K/mcL (0.0-0.3); Basophils % (Auto) 0.4 % (0.0-2.0); Eosinophils # (Auto) 0.2 K/mcL (0.0-0.7); Eosinophils % (Auto) 2.4 % (0.0-7.0); Granulocytes % (Auto) 74.6 % (38.0-78.0); Lymphocytes # (Auto) 1.7 K/mcL (1.5-4.8); Lymphocytes % (Auto) 17.2 % (15.5-49.0); Mean Corpuscular HGB Conc 33.5 g/dL (31.0-36.0); Mean Corpuscular Hemoglobin 32.5 pg (26.0-34.0); Monocytes # (Auto) 0.5 K/mcL (0.1-0.9); Monocytes % (Auto) 5.4 % (1.0-12.0); Platelet Count 393 K/mcL (140-440); RBC 3.91 M/mcL (4.00-5.20); Red Cell Distribution Width 14.9 % (11.5-14.5)
[2017-12-08] MEDS ORDERED: VANCOMYCIN 1,000 MG in 0.9 % SODIUM CHLORIDE 250 ML IV ONE (14:00)
[2017-12-08] MEDS ORDERED: 0.9 % SODIUM CHLORIDE 10 ML SYRINGE IV SCH ×3 (14:00→22:00)
[2017-12-08 14:06] LABS: ALT/SGPT 11 U/l (0-40); Albumin/Globulin Ratio 1.3 (1.0-2.3); Alkaline Phosphatase 49 U/L (39-117); Bilirubin,Direct < 0.2 mg/dL (0.0-0.3); Blood Urea Nitrogen 19 mg/dl (8-23); Gamma Glutamyl Transpeptidase 25 U/L (5-36); Uric Acid 6.3 mg/dL (2.5-8.0)
[2017-12-08] MEDS ORDERED: IPRATROPIUM/ALBUTEROL 3 ML AMPUL.NEB NEB SCH (15:00)
[2017-12-08] MEDS: IPRATROPIUM/ALBUTEROL 3 ML AMPUL.NEB NEB SCH ×2 (18:54→23:22)
[2017-12-08] MEDS: LACTATED RINGERS 1,000 ML IV SCH (20:40)
[2017-12-08] MEDS ORDERED: HEPARIN 5,000 UNIT/ML VIAL SQ SCH (21:00)
[2017-12-08] MEDS: 0.9 % SODIUM CHLORIDE 10 ML SYRINGE IV SCH (21:22)
[2017-12-08] MEDS: HEPARIN 5,000 UNIT/ML VIAL SQ SCH (21:22)
[2017-12-09] MEDS: IPRATROPIUM/ALBUTEROL 3 ML AMPUL.NEB NEB SCH ×6 (03:02→23:30)
[2017-12-09] MEDS: LACTATED RINGERS 1,000 ML IV SCH (04:35)
[2017-12-09] MEDS: methylPREDNISolone SOD SUCC 125 MG/2 ML VIAL IV SCH ×4 (05:41→21:22)
[2017-12-09] MEDS: 0.9 % SODIUM CHLORIDE 10 ML SYRINGE IV SCH ×3 (05:42→21:22)
[2017-12-09 06:21] LABS: Basophils # (Auto) 0 K/mcL (0.0-0.3); Basophils % (Auto) 0.1 % (0.0-2.0); Eosinophils # (Auto) 0.2 K/mcL (0.0-0.7); Eosinophils % (Auto) 2.7 % (0.0-7.0); Granulocytes % (Auto) 86.2 % (38.0-78.0); Lymphocytes # (Auto) 0.5 K/mcL (1.5-4.8); Lymphocytes % (Auto) 8.4 % (15.5-49.0); Mean Cell Volume 97.7 fL (80.0-100.0); Mean Corpuscular HGB Conc 33.5 g/dL (31.0-36.0); Mean Corpuscular Hemoglobin 32.7 pg (26.0-34.0); Monocytes # (Auto) 0.2 K/mcL (0.1-0.9); Monocytes % (Auto) 2.6 % (1.0-12.0); Platelet Count 275 K/mcL (140-440); RBC 3.27 M/mcL (4.00-5.20); Red Cell Distribution Width 14.5 % (11.5-14.5)
[2017-12-09 06:24] LABS: ALT/SGPT 9 U/l (0-40); Albumin 3.3 gm/dL (3.2-5.2); Albumin/Globulin Ratio 1.3 (1.0-2.3); Alkaline Phosphatase 37 U/L (39-117); Bilirubin,Direct < 0.2 mg/dL (0.0-0.3); Blood Urea Nitrogen 20 mg/dl (8-23); Gamma Glutamyl Transpeptidase 20 U/L (5-36); Uric Acid 6.4 mg/dL (2.5-8.0)
--- NOTE | 2017-12-09 08:58 | XRay Report ---
HISTORY: Reason for Exam:shortness of breath pulmonary infiltrates FINDINGS: There are moderate generalized infiltrates throughout both lungs with the greatest involvement in the right upper and right lower lobe. There has been mild improvement bilaterally since chest today. There is a tiny left-sided pleural effusion which is developed. The heart size is normal. IMPRESSION: Widespread bilateral pulmonary infiltrates which are beginning to improve Interpreted and Authenticated by: Kalpesh Argueta 12/09/17
[2017-12-09] MEDS ORDERED: MULTIVIT,THER IRON,CA,FA & MIN 1 TABLET PO SCH (09:00)
[2017-12-09] MEDS ORDERED: THIAMINE 100 MG TABLET PO SCH (09:00)
[2017-12-09] MEDS: HEPARIN 5,000 UNIT/ML VIAL SQ SCH ×2 (09:21→21:21)
[2017-12-09] MEDS: CEFEPIME 1 GM VIAL IV SCH ×2 (09:21→21:21)
[2017-12-09] MEDS: THIAMINE 100 MG TABLET PO SCH (09:22)
[2017-12-09] MEDS: VANCOMYCIN 1,000 MG in 0.9 % SODIUM CHLORIDE 250 ML IV SCH (09:22)
[2017-12-09] MEDS: MULTIVIT,THER IRON,CA,FA & MIN 1 TABLET PO SCH (09:22)
[2017-12-09] MEDS ORDERED: VANCOMYCIN 1,000 MG in 0.9 % SODIUM CHLORIDE 250 ML IV SCH (10:00)
[2017-12-09] MEDS ORDERED: LORazepam 2 MG/ML VIAL IV ONE (13:05)
[2017-12-09] MEDS: LORazepam 2 MG/ML VIAL IV PRN ×4 (13:11→21:55)
--- NOTE | 2017-12-09 17:22 | Internal Med Progress Note ---
Medical - PN: Subj Patient information: Note initiated : 12/09/17 at 5:20 pm Service Date, if different from initiated Date: [] Patient: Sylvia Tucker 72 y/o F admitted on 12/08/17 for Weakness/Pneumonia, Sepsis. Chief Complaint: [] Interval history: According to the patient she was on a cruise in [place], where she fell sick, she was nose with pneumonia, and was treated by the physician on the cruise ship. She was given levofloxacin intravenously for 3 days and then continued oral levofloxacin for another 4-5 days. Patient notes that she had improved from this illness. On her way back on december this month she was starting to feel sick again, cough shortness of breath of exertion and some wheezing. Subjective sensation of fever and some chills. The patient's cough was associated with yellowish sputum, no blood in the sputum. The patient's breathing cough and weakness continued to get worse over the next few days and therefore the patient presented to the emergency room for further evaluation The patient denies any complaints, only sick contact is likely on the flight back. The patient has no headache, has chronic runny nose, no watery eyes no diplopia or changes in hearing, no difficulty in swallowing, has shortness of breath on exertion, has cough, she has no chest pain no palpitations. No nausea no vomiting no abdominal pain no bladder or bowel complaints. No joint pains denies any acute depression or anxiety. 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 No easy bruising or bleeding, She does have wheezing. in the emergency room the patient was afebrile, temperature 97.2, heart rate of 88, blood pressure 1 56 x 67, respiratory rate around 24-25, she was saturating 86% on room air, on presentation she was 76 or 78% on room air her oxygen saturation corrected with oxygen supplementation via nasal cannula. The patient was given Rocephin and Zithromax in the ED and presented for admission. The patient has a history of alcohol use, presently is drinking 1 drink 3 times a day with meals according to the . The patient obviously drank heavily on the cruise ship. The patient notes that they have set up a regime to help her cut back on the drinking december 09 Pt seen examined, off bipap this AM but needed later resp status stable, X ray shows kimmy pna improving on borad spectrum ABX high risk of withdrawal on wine with meals also ativan as needed microbiolgoy neg labs stable Pertinent ROS: Denies headache, dizziness Denies chest pain, palpitations improving shortness of breath and cough Denies abdominal pain, nausea or vomiting. - Constitutional Vitals: Vital Signs Temp Pulse Resp BP Pulse Ox 97.8 F 110 H 33 H 153/80 94 12/09/17 07:01 12/09/17 15:23 12/09/17 15:23 12/09/17 16:01 12/09/17 15:23 Period Temp Pulse Resp BP Sys/Esqueda Pulse Ox Last 24 Hr 97.0 F-97.8 F 64-120 13-33 108-198/49-127 88-100 Intake and Output 12/09/17 12/09/17 12/09/17 05:59 13:59 21:59 Intake Total 1140 / 1140 1575 / 1575 450 / 450 Output Total 295 / 295 320 / 320 260 / 260 Balance 845 / 845 1255 / 1255 190 / 190 Weight 171 lb 8 oz Patient Weight 12/10/17 05:59 Weight 171 lb 8 oz Intake & Output: Intake & Output 12/09/17 12/09/17 12/09/17 05:59 13:59 21:59 Intake Total 1140 / 1140 1575 / 1575 450 / 450 Output Total 295 / 295 320 / 320 260 / 260 Balance 845 / 845 1255 / 1255 190 / 190 Weight 171 lb 8 oz Intake: IV 990 / 990 1275 / 1275 Lactated Ringers 1,000 ml @ 125 990 / 990 mls/hr IV .Q8H [facility] Rx#: [id number] Vancomycin 1,000 mg In Sodium 250 / 250 Chloride 0.9% 250 ml @ 250 mls/ hr IV Q24H [facility] Rx#:[id number] Oral 150 / 150 300 / 300 450 / 450 Output: Urine Catheter Amount 295 / 295 320 / 320 260 / 260 Other: Meal Breakfast Lunch Percent of Meal Consumed 50% 100% Stool Size Moderate Stool Color Brown Brown Stool Consistency Soft Soft # Bowel Movements 1 2 # of times incontinent of 2 Bowels Exam: Constitutional; Afebrile, cooperative, alert, not in distress. Eyes- No icterus, , No periorbital swelling Ears- Ext ear normal, hearing normal to conversation. Neck- Midline trachea, supple Respiratory system: Air Entry equal on both sides,poor air entry bilaterally, kimmy wheezing, basilar crackles, CVS- Rate rhythm regular, S1,S2 heard, no gallop, no rub. Abdomen- Soft nontender abdomen, no organomegaly, no tenderness, no guarding or rigidity, [employer]- AOOx3, moving all extremities, no gross focal deficit noted. anxious Medical - PN: Obj Da - Labs CBC & Chem 7: 12/09/17 03:45 12/09/17 03:45 Labs: Abnormal Lab Results 12/09/17 12/09/17 12/08/17 03:45 03:45 13:16 RBC 3.27 L Hgb 10.7 L Hct 32.0 L RDW MPV Gran % 86.2 H Lymph % (Auto) 8.4 L Lymph # (Auto) 0.5 L BUN Creatinine Glucose 156 H Calcium 8.3 L Magnesium 2.7 H Alkaline Phosphatase 37 L NT-Pro-B Natriuret Pep 1467.0 H 12/08/17 12/08/17 12/08/17 13:16 13:16 08:05 RBC 3.91 L Hgb Hct RDW 14.9 H MPV 6.8 L Gran % Lymph % (Auto) Lymph # (Auto) BUN 24 H Creatinine 1.3 H Glucose 114 H 111 H Calcium Magnesium Alkaline Phosphatase NT-Pro-B Natriuret Pep 12/08/17 08:05 RBC 3.62 L Hgb 11.9 L Hct 34.8 L RDW 14.8 H MPV 6.7 L Gran % 81.4 H Lymph % (Auto) 7.4 L Lymph # (Auto) 0.5 L BUN Creatinine Glucose Calcium Magnesium Alkaline Phosphatase NT-Pro-B Natriuret Pep Meds: Medications Acetaminophen (Tylenol) 650 mg PO Q6HP PRN PRN Reason: PAIN/FEVER > 101 Albuterol/Ipratropium (Duoneb) 3 ml NEB Q4HRT [facility] Last Admin: 12/09/17 15:02 Dose: 3 ml Cefepime HCl (Maxipime) 1 gm IV Q12H [facility] Last Admin: 12/09/17 09:21 Dose: 1 gm Clonidine HCl (Catapres) 0.1 mg PO Q4HP PRN PRN Reason: Alcohol Withdrawal Heparin Sodium (Porcine) (Heparin) 5,000 unit SQ Q12 ON LICENSE OF [facility] Last Admin: 12/09/17 09:21 Dose: 5,000 unit Vancomycin HCl 1,000 mg/ (Sodium Chloride) 250 mls @ 250 mls/hr IV Q24H ON LICENSE OF [facility] Last Infusion: 12/09/17 11:00 Dose: Infused Iron Carb/Multivit/[place]/Folic Acid (Multivitamin W/Minerals) 1 tab PO DAILY ON LICENSE OF [facility] Last Admin: 12/09/17 09:22 Dose: 1 tab Lorazepam (Ativan) 1 - 2 mg IV Q2HP PRN PRN Reason: ANXIETY/SEDATION Last Admin: 12/09/17 16:00 Dose: 2 mg Methylprednisolone Sodium Succinate (Solu-Medrol) 62.5 mg IV Q8 ON LICENSE OF [facility] Last Admin: 12/09/17 14:00 Dose: 62.5 mg Ondansetron HCl (Zofran) 4 mg IV Q6HP PRN PRN Reason: Nausea And Vomiting Sodium Chloride (Saline Flush) 10 ml IV Q8 ON LICENSE OF [facility] Last Admin: 12/09/17 14:00 Dose: 10 ml Thiamine HCl (Vitamin B1) 100 mg PO DAILY ON [facility] OF [facility] Last Admin: 12/09/17 09:22 Dose: 100 mg Vancomycin HCl (Vancomycin Per Pharmacy) 1 order IV UD ON LICENSE OF [facility] Medical - PN: A/P - Time Spent With Patient Total time spent is greater than 50% in coordination of care (as documented) at patient's floor/unit and/or counseling patient: - Narrative A/P Narrative: A/P Health care associated Pneumonia Sepsis Hypertension Alcoholism Peripheral Neuropathy Recurrent UTI in past, last UTi 2 months ago Hypothyroidism Hypertension Pulmonary fibrosis? noted on Chest X Ray COPD? vs Reactive Air way disease Plan monitor on pcu bipap as needed to maintain resp support intubate if needed iv antibiotics for pna, vanco and cefepime duonebs and steroids Pt is hemodynamically stable, lactate is normal, wine with meals iv thiamine ativan as needed monitor closely. was at bedside, updated on plan of care. DVT hep sq Diet regular, Ok for wine or beer with meals, plans to keep on drinking Full code.
[2017-12-10] MEDS: LORazepam 2 MG/ML VIAL IV PRN ×9 (02:10→22:42)
[2017-12-10] MEDS: IPRATROPIUM/ALBUTEROL 3 ML AMPUL.NEB NEB SCH ×6 (03:01→23:38)
[2017-12-10 05:00] LABS: Basophils # (Auto) 0 K/mcL (0.0-0.3); Basophils % (Auto) 0 % (0.0-2.0); Eosinophils # (Auto) 0.1 K/mcL (0.0-0.7); Eosinophils % (Auto) 0.9 % (0.0-7.0); Granulocytes % (Auto) 87.5 % (38.0-78.0); Lymphocytes # (Auto) 0.9 K/mcL (1.5-4.8); Lymphocytes % (Auto) 7.7 % (15.5-49.0); Mean Cell Volume 98.2 fL (80.0-100.0); Mean Corpuscular Hemoglobin 32.4 pg (26.0-34.0); Monocytes # (Auto) 0.5 K/mcL (0.1-0.9); Monocytes % (Auto) 3.9 % (1.0-12.0); Platelet Count 364 K/mcL (140-440); Red Cell Distribution Width 14.4 % (11.5-14.5)
[2017-12-10] MEDS ORDERED: FUROSEMIDE 20 MG/2 ML VIAL IV ONE ×2 (05:12→05:14)
[2017-12-10 05:13] LABS: ALT/SGPT 13 U/l (0-40); Albumin 3.1 gm/dL (3.2-5.2); Alkaline Phosphatase 46 U/L (39-117); Bilirubin,Direct < 0.2 mg/dL (0.0-0.3); Blood Urea Nitrogen 30 mg/dl (8-23); Gamma Glutamyl Transpeptidase 26 U/L (5-36); Uric Acid 7.7 mg/dL (2.5-8.0)
[2017-12-10] MEDS: methylPREDNISolone SOD SUCC 125 MG/2 ML VIAL IV SCH ×3 (05:40→21:40)
[2017-12-10] MEDS: 0.9 % SODIUM CHLORIDE 10 ML SYRINGE IV SCH ×5 (05:40→22:58)
[2017-12-10] MEDS: cloNIDine HCL 0.1 MG TABLET PO PRN ×4 (07:02→19:18)
--- NOTE | 2017-12-10 08:56 | Internal Med Progress Note ---
Medical - PN: Subj Patient information: Note initiated : 12/10/17 at 8:52 am Service Date, if different from initiated Date: [] Patient: Sylvia Tucker 72 y/o F admitted on 12/08/17 for Weakness/Pneumonia, Sepsis. Chief Complaint: [] Interval history: According to the patient she was on a cruise in [place], where she fell sick, she was nose with pneumonia, and was treated by the physician on the cruise ship. She was given levofloxacin intravenously for 3 days and then continued oral levofloxacin for another 4-5 days. Patient notes that she had improved from this illness. On her way back on december this month she was starting to feel sick again, cough shortness of breath of exertion and some wheezing. Subjective sensation of fever and some chills. The patient's cough was associated with yellowish sputum, no blood in the sputum. The patient's breathing cough and weakness continued to get worse over the next few days and therefore the patient presented to the emergency room for further evaluation The patient denies any complaints, only sick contact is likely on the flight back. The patient has no headache, has chronic runny nose, no watery eyes no diplopia or changes in hearing, no difficulty in swallowing, has shortness of breath on exertion, has cough, she has no chest pain no palpitations. No nausea no vomiting no abdominal pain no bladder or bowel complaints. No joint pains denies any acute depression or anxiety. 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 No easy bruising or bleeding, She does have wheezing. in the emergency room the patient was afebrile, temperature 97.2, heart rate of 88, blood pressure 1 56 x 67, respiratory rate around 24-25, she was saturating 86% on room air, on presentation she was 76 or 78% on room air her oxygen saturation corrected with oxygen supplementation via nasal cannula. The patient was given Rocephin and Zithromax in the ED and presented for admission. The patient has a history of alcohol use, presently is drinking 1 drink 3 times a day with meals according to the . The patient obviously drank heavily on the cruise ship. The patient notes that they have set up a regime to help her cut back on the drinking december 09 Pt seen examined, off bipap this AM but needed later resp status stable, X ray shows kimmy pna improving on borad spectrum ABX high risk of withdrawal on wine with meals also ativan as needed microbiolgoy neg labs stable 12/10- patient critically ill. On BiPAP 14/8-55% FiO2. Severe respiratory distress. Active alcohol withdrawal requiring benzodiazepines protocol. at bedside. Patient arousable but remains high-risk aspiration. Would be a candidate for mechanical ventilation if continues to deteriorate. Continue close hemodynamic monitoring including electrolytes follow-up in light of active withdrawals. [place] score 21. Continue critical care management. white count uptrending at 12.2. Repeat chest x-ray in 24 hours. on broad antibiotic coverage including vancomycin/cefepime. recheck ABG - Constitutional Vitals: Vital Signs Temp Pulse Resp BP Pulse Ox 97.2 F 110 H 22 138/103 94 12/10/17 07:17 12/10/17 06:50 12/10/17 07:17 12/10/17 07:17 12/10/17 07:17 Period Temp Pulse Resp BP Sys/Esqueda Pulse Ox Last 24 Hr 97.2 F-98.5 F 91-120 16-33 115-198/54-131 87-99 Intake and Output 12/09/17 12/10/17 12/10/17 21:59 05:59 13:59 Intake Total 450 / 450 250 / 250 Output Total 440 / 440 200 / 200 180 / 180 Balance -200 / -200 70 / 70 Weight 173 lb 4.8 oz Intake & Output: Intake & Output 12/09/17 12/10/17 12/10/17 21:59 05:59 13:59 Intake Total 450 / 450 250 / 250 Output Total 440 / 440 200 / 200 180 / 180 Balance -200 / -200 70 / 70 Weight 173 lb 4.8 oz Intake: Oral 450 / 450 250 / 250 Output: Urine Catheter Amount 440 / 440 200 / 200 180 / 180 Other: Meal Lunch Percent of Meal Consumed 100% Stool Color Brown Stool Consistency Soft # Bowel Movements 2 # of times incontinent of 2 Bowels General appearance: severe distress Exam: confused and agitated On BiPAP Labored breathing Tachycardia on telemetry Medical - PN: Obj Da - Labs CBC & Chem 7: 12/10/17 03:40 12/10/17 03:40 Labs: Abnormal Lab Results 12/10/17 12/10/17 12/09/17 03:40 03:40 03:45 WBC 12.2 H RBC 3.90 L Hgb Hct RDW MPV Gran % 87.5 H Lymph % (Auto) 7.7 L Gran # 10.7 H Lymph # (Auto) 0.9 L BUN 30 H Creatinine Glucose 161 H 156 H Calcium 8.3 L Magnesium 2.7 H 2.7 H Alkaline Phosphatase 37 L Lactate Dehydrogenase 324 H NT-Pro-B Natriuret Pep Albumin 3.1 L 12/09/17 12/08/17 12/08/17 03:45 13:16 13:16 WBC RBC 3.27 L Hgb 10.7 L Hct 32.0 L RDW MPV Gran % 86.2 H Lymph % (Auto) 8.4 L Gran # Lymph # (Auto) 0.5 L BUN Creatinine Glucose 114 H Calcium Magnesium Alkaline Phosphatase Lactate Dehydrogenase NT-Pro-B Natriuret Pep 1467.0 H Albumin 12/08/17 12/08/17 12/08/17 13:16 08:05 08:05 WBC RBC 3.91 L 3.62 L Hgb 11.9 L Hct 34.8 L RDW 14.9 H 14.8 H MPV 6.8 L 6.7 L Gran % 81.4 H Lymph % (Auto) 7.4 L Gran # Lymph # (Auto) 0.5 L BUN 24 H Creatinine 1.3 H Glucose 111 H Calcium Magnesium Alkaline Phosphatase Lactate Dehydrogenase NT-Pro-B Natriuret Pep Albumin Meds: Medications Acetaminophen (Tylenol) 650 mg PO Q6HP PRN PRN Reason: PAIN/FEVER > 101 Albuterol/Ipratropium (Duoneb) 3 ml NEB Q4HRT [facility] Last Admin: 12/10/17 06:50 Dose: 3 ml Cefepime HCl (Maxipime) 1 gm IV Q12H [facility] Last Admin: 12/09/17 21:21 Dose: 1 gm Clonidine HCl (Catapres) 0.1 mg PO Q4HP PRN PRN Reason: Alcohol Withdrawal Last Admin: 12/10/17 07:02 Dose: 0.1 mg Heparin Sodium (Porcine) (Heparin) 5,000 unit SQ Q12 [facility] Last Admin: 12/09/17 21:21 Dose: 5,000 unit Vancomycin HCl 1,000 mg/ (Sodium Chloride) 250 mls @ 250 mls/hr IV Q24H [facility] Last Infusion: 12/09/17 11:00 Dose: Infused Iron Carb/Multivit/[place]/Folic Acid (Multivitamin W/Minerals) 1 tab PO DAILY [facility] Last Admin: 12/09/17 09:22 Dose: 1 tab Lorazepam (Ativan) 1 - 2 mg IV Q2HP PRN PRN Reason: ANXIETY/SEDATION Last Admin: 12/10/17 06:47 Dose: 2 mg Methylprednisolone Sodium Succinate (Solu-Medrol) 62.5 mg IV Q8 [facility] Last Admin: 12/10/17 05:40 Dose: 62.5 mg Ondansetron HCl (Zofran) 4 mg IV Q6HP PRN PRN Reason: Nausea And Vomiting Sodium Chloride (Saline Flush) 10 ml IV Q8 [facility] Last Admin: 12/10/17 05:40 Dose: 10 ml Thiamine HCl (Vitamin B1) 100 mg PO DAILY [facility] Last Admin: 12/09/17 09:22 Dose: 100 mg Vancomycin HCl (Vancomycin Per Pharmacy) 1 order IV [facility] Medical - PN: A/P - Time Spent With Patient Total time spent is greater than 50% in coordination of care (as documented) at patient's floor/unit and/or counseling patient: Greater than 35 minutes (Critical care time) - Narrative A/P Narrative: A/P * acute hypoxic respiratory failure- on noninvasive ventilation pressure 14/8 and 55% FiO2. Serial ABGs/chest imaging * Health care associated Pneumonia- continue cefepime and vancomycin. Patient critically ill with multifocal bilateral infiltrates. Repeat chest imaging 24 hours for interval assessment. Continue ICU support * Severe sepsis white count uptrending secondary to healthcare pneumonia. On antibiotic coverage. continue close monitoring * Severe alcohol withdrawal-continue benzodiazepines protocol. Remains a high risk airway compromise. Keep low threshold for mechanical ventilation prior medical issues * Hypertension * Peripheral Neuropathy * Hypothyroidism * Pulmonary fibrosis? noted on Chest X Ray * COPD? vs Reactive Air way disease * DVT prophylaxis on heparin Plan * continue ICU care * continue noninvasive ventilation and low threshold for mechanical ventilation * Benzodiazepine protocol for alcohol withdrawal and seizure prevention * Broad antibiotic coverage * Noninvasive ventilation * bronchodilators and steroid * IV thiamine * patient critically ill with high risk mortality-[place] score over 20
[2017-12-10] MEDS: CEFEPIME 1 GM VIAL IV SCH ×2 (09:48→21:48)
[2017-12-10] MEDS: HEPARIN 5,000 UNIT/ML VIAL SQ SCH ×2 (09:48→21:40)
[2017-12-10] MEDS: THIAMINE 100 MG TABLET PO SCH (09:58)
[2017-12-10] MEDS: MULTIVIT,THER IRON,CA,FA & MIN 1 TABLET PO SCH (09:58)
[2017-12-10] MEDS: VANCOMYCIN 1,000 MG in 0.9 % SODIUM CHLORIDE 250 ML IV SCH ×3 (11:21→21:40)
[2017-12-10] MEDS: LACTATED RINGERS 1,000 ML IV SCH (13:55)
[2017-12-11] MEDS: LORazepam 2 MG/ML VIAL IV PRN ×8 (00:17→09:28)
[2017-12-11] MEDS: cloNIDine HCL 0.1 MG TABLET PO PRN (01:38)
[2017-12-11] MEDS: IPRATROPIUM/ALBUTEROL 3 ML AMPUL.NEB NEB SCH ×6 (04:16→23:29)
[2017-12-11] MEDS: methylPREDNISolone SOD SUCC 125 MG/2 ML VIAL IV SCH (06:20)
[2017-12-11] MEDS: 0.9 % SODIUM CHLORIDE 10 ML SYRINGE IV SCH ×3 (06:20→23:37)
[2017-12-11 06:47] LABS: Basophils # (Auto) 0 K/mcL (0.0-0.3); Basophils % (Auto) 0.1 % (0.0-2.0); Eosinophils # (Auto) 0.1 K/mcL (0.0-0.7); Eosinophils % (Auto) 0.8 % (0.0-7.0); Granulocytes % (Auto) 87.4 % (38.0-78.0); Lymphocytes # (Auto) 0.8 K/mcL (1.5-4.8); Lymphocytes % (Auto) 7.5 % (15.5-49.0); Mean Cell Volume 97.7 fL (80.0-100.0); Mean Corpuscular Hemoglobin 32.3 pg (26.0-34.0); Monocytes # (Auto) 0.4 K/mcL (0.1-0.9); Monocytes % (Auto) 4.2 % (1.0-12.0); Platelet Count 291 K/mcL (140-440); RBC 3.54 M/mcL (4.00-5.20)
[2017-12-11 07:16] LABS: ALT/SGPT 73 U/l (0-40); Alkaline Phosphatase 74 U/L (39-117); Bilirubin,Direct < 0.2 mg/dL (0.0-0.3); Blood Urea Nitrogen 38 mg/dl (8-23); Gamma Glutamyl Transpeptidase 69 U/L (5-36); Uric Acid 8.8 mg/dL (2.5-8.0)
[2017-12-11] MEDS: LACTATED RINGERS 1,000 ML IV SCH (09:29)
--- NOTE | 2017-12-11 10:07 | XRay Report ---
HISTORY: Reason for Exam:Interval Change- bilateral pneumonia , sepsis and weakness FINDINGS: Severe diffuse alveolar infiltrates are present throughout both lungs. These have become significantly worse since 12/09/17. There may be a very small right-sided pleural effusion. The heart size is normal and appears smaller on today's exam. No pneumothorax is present. There are multiple overlying artifacts. IMPRESSION: Worsening infiltrates throughout both lungs which could be due to pneumonia, ARDS or noncardiogenic pulmonary edema Interpreted and Authenticated by: Kalpesh Argueta 12/11/17
[2017-12-11] MEDS: HEPARIN 5,000 UNIT/ML VIAL SQ SCH ×2 (10:10→23:15)
[2017-12-11] MEDS ORDERED: MIDAZOLAM 2 MG/2 ML VIAL IV ONE (10:10)
[2017-12-11] MEDS: CEFEPIME 1 GM VIAL IV SCH ×2 (10:10→23:15)
--- NOTE | 2017-12-11 10:22 | Internal Med Progress Note ---
Medical - PN: Subj Patient information: Note initiated : 12/11/17 at 10:17 am Service Date, if different from initiated Date: [] Patient: Sylvia Tucker 72 y/o F admitted on 12/08/17 for Weakness/Pneumonia, Sepsis. Chief Complaint: [] Interval history: According to the patient she was on a cruise in [place], where she fell sick, she was nose with pneumonia, and was treated by the physician on the cruise ship. She was given levofloxacin intravenously for 3 days and then continued oral levofloxacin for another 4-5 days. Patient notes that she had improved from this illness. On her way back on december this month she was starting to feel sick again, cough shortness of breath of exertion and some wheezing. Subjective sensation of fever and some chills. The patient's cough was associated with yellowish sputum, no blood in the sputum. The patient's breathing cough and weakness continued to get worse over the next few days and therefore the patient presented to the emergency room for further evaluation The patient denies any complaints, only sick contact is likely on the flight back. The patient has no headache, has chronic runny nose, no watery eyes no diplopia or changes in hearing, no difficulty in swallowing, has shortness of breath on exertion, has cough, she has no chest pain no palpitations. No nausea no vomiting no abdominal pain no bladder or bowel complaints. No joint pains denies any acute depression or anxiety. 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 No easy bruising or bleeding, She does have wheezing. in the emergency room the patient was afebrile, temperature 97.2, heart rate of 88, blood pressure 1 56 x 67, respiratory rate around 24-25, she was saturating 86% on room air, on presentation she was 76 or 78% on room air her oxygen saturation corrected with oxygen supplementation via nasal cannula. The patient was given Rocephin and Zithromax in the ED and presented for admission. The patient has a history of alcohol use, presently is drinking 1 drink 3 times a day with meals according to the . The patient obviously drank heavily on the cruise ship. The patient notes that they have set up a regime to help her cut back on the drinking december 09 Pt seen examined, off bipap this AM but needed later resp status stable, X ray shows kimmy pna improving on borad spectrum ABX high risk of withdrawal on wine with meals also ativan as needed microbiolgoy neg labs stable 12/10- patient critically ill. On BiPAP /-55% FiO2. Severe respiratory distress. Active alcohol withdrawal requiring benzodiazepines protocol. at bedside. Patient arousable but remains high-risk aspiration. Would be a candidate for mechanical ventilation if continues to deteriorate. Continue close hemodynamic monitoring including electrolytes follow-up in light of active withdrawals. [place] score 21. Continue critical care management. white count uptrending at 12.2. Repeat chest x-ray in 24 hours. on broad antibiotic coverage including vancomycin/cefepime. recheck ABG 12/11- patient remains critically ill. Actively withdrawing and hallucinating ith psychomotor agitation requiring Versed/Ativan. Worsening bilateral infiltrates suggestive of ARDS. Large AA gradient with PaO2/FiO2 150. On 45% FiO2 BiPAP. Broad antibiotic coverage. white count 10.6. elevated LFTs. Multiple organ dysfunction. keep low threshold for transfer to tertiary Center. - Constitutional Vitals: Vital Signs Temp Pulse Resp BP Pulse Ox 98.2 F 100 H 24 H 179/109 94 12/11/17 08:00 12/11/17 01:40 12/11/17 08:00 12/11/17 09:00 12/11/17 09:00 Period Temp Pulse Resp BP Sys/Esqueda Pulse Ox Last 24 Hr 97.0 F-98.8 F 73-111 14-33 105-179/63-121 82-98 Intake and Output 12/10/17 12/11/17 12/11/17 20:59 05:59 13:59 Intake Total 1000 / 1000 Output Total Balance 945 / 945 Intake & Output: Intake & Output 12/10/17 12/11/17 12/11/17 20:59 05:59 13:59 Intake Total 1000 / 1000 Output Total 55 Balance 945 / 945 Intake: IV 1000 / 1000 Lactated Ringers 1,000 ml @ 60 1000 / 1000 mls/hr IV .[id number] [facility] Rx#: [id number] Vancomycin 1,000 mg In Sodium Chloride 0.9% 250 ml @ 250 mls/ hr IV Q12H [facility] Rx#:[id number] Oral GI Tube Flush Output: Urine Catheter Amount 55 / 55 Other: Stool Size Stool Color Green Stool Consistency Soft # Bowel Movements # of times incontinent of 1 Bowels General appearance: severe distress Exam: agitated and anxious Tachycardic tachypneic On BiPAP bloody urine No pallor Medical - PN: Obj Da - Labs CBC & Chem 7: 12/11/17 03:45 12/11/17 03:45 Labs: Abnormal Lab Results 12/11/17 12/11/17 12/11/17 08:25 03:45 03:45 WBC RBC 3.54 L Hgb 11.4 L Hct 34.6 L RDW 15.0 H MPV Gran % 87.4 H Lymph % (Auto) 7.5 L Gran # 9.3 H Lymph # (Auto) 0.8 L Carbon Dioxide 21 L BUN 38 H Glucose 124 H Uric Acid 8.8 H Calcium 8.5 L Magnesium 2.7 H GGT 69 H AST 172 H ALT 73 H Alkaline Phosphatase Lactate Dehydrogenase 406 H NT-Pro-B Natriuret Pep Albumin 3.0 L Vancomycin Trough 26.8 H* 12/10/17 12/10/17 12/09/17 03:40 03:40 03:45 WBC 12.2 H RBC 3.90 L Hgb Hct RDW MPV Gran % 87.5 H Lymph % (Auto) 7.7 L Gran # 10.7 H Lymph # (Auto) 0.9 L Carbon Dioxide BUN 30 H Glucose 161 H 156 H Uric Acid Calcium 8.3 L Magnesium 2.7 H 2.7 H GGT AST ALT Alkaline Phosphatase 37 L Lactate Dehydrogenase 324 H NT-Pro-B Natriuret Pep Albumin 3.1 L Vancomycin Trough 12/09/17 12/08/17 12/08/17 03:45 13:16 13:16 WBC RBC 3.27 L Hgb 10.7 L Hct 32.0 L RDW MPV Gran % 86.2 H Lymph % (Auto) 8.4 L Gran # Lymph # (Auto) 0.5 L Carbon Dioxide BUN Glucose 114 H Uric Acid Calcium Magnesium GGT AST ALT Alkaline Phosphatase Lactate Dehydrogenase NT-Pro-B Natriuret Pep 1467.0 H Albumin Vancomycin Trough 12/08/17 13:16 WBC RBC 3.91 L Hgb Hct RDW 14.9 H MPV 6.8 L Gran % Lymph % (Auto) Gran # Lymph # (Auto) Carbon Dioxide BUN Glucose Uric Acid Calcium Magnesium GGT AST ALT Alkaline Phosphatase Lactate Dehydrogenase NT-Pro-B Natriuret Pep Albumin Vancomycin Trough Meds: Medications Acetaminophen (Tylenol) 650 mg PO Q6HP PRN PRN Reason: PAIN/FEVER > 101 Last Admin: 12/10/17 09:59 Dose: 650 mg Albuterol/Ipratropium (Duoneb) 3 ml NEB Q4HRT [facility] Last Admin: 12/11/17 06:58 Dose: Not Given Cefepime HCl (Maxipime) 1 gm IV Q12H [facility] Last Admin: 12/10/17 21:48 Dose: 1 gm Clonidine HCl (Catapres) 0.1 mg PO Q4HP PRN PRN Reason: Alcohol Withdrawal Last Admin: 12/10/17 19:18 Dose: 0.1 mg Heparin Sodium (Porcine) (Heparin) 5,000 unit SQ Q12 [facility] Last Admin: 12/10/17 21:40 Dose: 5,000 unit Lactated Ringer's (Lactated Ringers) 1,000 mls @ 60 mls/hr IV .[id number] [facility] Stop: 12/12/17 15:44 Last Admin: 12/11/17 09:29 Dose: 60 mls/hr Lorazepam 50 mg/ Dextrose 100 mls @ 1.57 mls/hr IV Q12H [facility]; 0.01 MG/KG/HR PRN Reason: Protocol Iron Carb/Multivit/[place]/Folic Acid (Multivitamin W/Minerals) 1 tab PO DAILY [facility] Last Admin: 12/10/17 09:58 Dose: 1 tab Lorazepam (Ativan) 0 mg IV Q4HP PRN; Protocol PRN Reason: Alcohol Withdrawal Last Admin: 12/11/17 09:28 Dose: 4 mg Methylprednisolone Sodium Succinate (Solu-Medrol) 62.5 mg IV Q8 [facility] Last Admin: 12/11/17 06:20 Dose: 62.5 mg Ondansetron HCl (Zofran) 4 mg IV Q6HP PRN PRN Reason: Nausea And Vomiting Sodium Chloride (Saline Flush) 10 ml IV Q8 [facility] Last Admin: 12/11/17 06:20 Dose: 10 ml Thiamine HCl (Vitamin B1) 100 mg PO DAILY [facility] Last Admin: 12/10/17 09:58 Dose: 100 mg Vancomycin HCl (Vancomycin Per Pharmacy) 1 order [place] [facility] [place] - PN: A/P - Time Spent With Patient Total time spent is greater than 50% in coordination of care (as documented) at patient's floor/unit and/or counseling patient: Greater than 35 minutes (critical care time) - Narrative A/P Narrative: A/P * acute hypoxic respiratory failure- worsening bilateral infiltrates sensitive ARDS. Continue noninvasive ventilation pressure 14/8 455% FiO2. continue Serial ABGs/chest imaging * ARDS- continue lung protective strategy with diuresis oh tidal volume, high PEEP * Health care associated Pneumonia- continue cefepime and vancomycin. Patient critically ill with multifocal bilateral infiltrates. serial chest imaging * Severe sepsis - white count 10.6. * Severe alcohol withdrawal-continue benzodiazepines protocol. Remains a high risk airway compromise. Keep low threshold for mechanical ventilation prior medical issues * Hypertension * Peripheral Neuropathy * Hypothyroidism * Pulmonary fibrosis? noted on Chest X Ray * COPD? vs Reactive Air way disease * DVT prophylaxis on heparin Plan * continue ICU care/BiPAP * benzodiazepine for delirium tremens * continue noninvasive ventilation * Broad antibiotic coverage * bronchodilators * lower steroid dose to once daily * patient remains critically ill
[2017-12-11] MEDS ORDERED: MIDAZOLAM 2 MG/2 ML VIAL ONE ×2 (10:35→12:22)
[2017-12-11] MEDS: LORazepam 50 MG in DEXTROSE 5% IN WATER 75 ML IV SCH ×2 (11:24→23:38)
[2017-12-11] MEDS: THIAMINE 100 MG TABLET PO SCH (11:24)
[2017-12-11] MEDS: MULTIVIT,THER IRON,CA,FA & MIN 1 TABLET PO SCH (11:24)
[2017-12-11] MEDS ORDERED: FUROSEMIDE 20 MG/2 ML VIAL IV ONE (12:28)
[2017-12-11] MEDS ORDERED: HEPARIN/NS 500 ML IV SCH (15:45)
[2017-12-11] MEDS ORDERED: SUCCINYLCHOLINE 20 MG/ML ML IV ONE (15:50)
[2017-12-11] MEDS: fentaNYL 2,500 MCG in 0.9 % SODIUM CHLORIDE 200 ML IV SCH (15:50)
[2017-12-11] MEDS ORDERED: MIDAZOLAM 5 MG/5 ML VIAL IV ONE (15:50)
[2017-12-11] MEDS ORDERED: LIDOCAINE 2% PF 5 ML VIAL IJ ONE (15:50)
[2017-12-11] MEDS ORDERED: PROPOFOL 200 MG/20 ML VIAL IV ONE (15:50)
[2017-12-11] MEDS: MIDAZOLAM PF 50 MG in 0.9 % SODIUM CHLORIDE 90 ML IV SCH ×3 (15:50→23:57)
[2017-12-11] MEDS ORDERED: fentaNYL 100 MCG/2 ML VIAL IV ONE (16:10)
[2017-12-11] MEDS ORDERED: 0.9 % SODIUM CHLORIDE 10 ML SYRINGE IV PRN (16:20)
--- NOTE | 2017-12-11 16:23 | Procedure Note ---
Procedures - Central Line Placement Left IJ Consent obtained: verbal consent Time out performed: Yes Patient placed on monitor/pulse ox: Yes MD prep: mask, sterile gown, sterile gloves, cap Central line prep: 2% Chlorhexidine scrub Ultrasound used for placement: Yes Central line lumen inserted: quad, 16 cm Post procedure: sutured in place, good blood return, all ports aspirated, flushed, capped, sterile dressing applied Post procedure x-ray: tip of catheter in good position, no pneumothorax seen Patient tolerated procedure: well, no complications Complications: none
--- NOTE | 2017-12-11 16:29 | Procedure Note ---
Procedures - Central Line Placement Right IJ Consent obtained: written consent Time out performed: Yes Patient placed on monitor/pulse ox: Yes prep: mask, sterile gown, sterile gloves, cap Central line prep: 2% Chlorhexidine scrub Local anesthesia used: lidocaine 1% Ultrasound used for placement: Yes Central line lumen inserted: quad, 16 cm Patient tolerated procedure: other (CVL line placement attempts per tabatha DURAN with good visuilazation of IJ. after getting blood return, took off syringe and found flow to be pulsitile. this happened again. 3rd attempt was a non pulsitile flow but unsuccessful thread of wire. and it was decided to abort attempts on R side. Dr mcqueen notified and he said he would attempt on L side. This was successful and no obvious complications were noted. ) Complications: none
--- NOTE | 2017-12-11 16:32 | Procedure Note ---
Procedures - Intubation Sedative: Versed Paralytic: Succinylcholine ETT: ETCO2, BBS Assist device used: glide Vocal Cord View: 1 ET tube size: 7 ET tube uncuffed: Yes Tube secured depth (cm): 21 Tube secured location: teeth Tube placement confirmation: visualized tube passing through cords, equal breath sounds bilaterally, no breath sounds over epigastrium, confirmation by capnometry Patient tolerated procedure: well Intubation complications: none
--- NOTE | 2017-12-11 16:59 | XRay Report ---
HISTORY: Reason for Exam:ETT Placement FINDINGS: The endotracheal tube is well-positioned in the midthoracic trachea. There is a left internal jugular line with the tip at the boundary of the innominate vein and superior vena cava. There is no pneumothorax or abnormal widening of the mediastinum. Severe widespread alveolar infiltrates are present throughout both lungs. The inferior lateral portion of the right thorax is outside of the field of view due to patient positioning. IMPRESSION: No complication following intubation and insertion of a left internal jugular line. Stable severe widespread infiltrates throughout both lungs Interpreted and Authenticated by: Kalpesh Argueta 12/11/17
[2017-12-11] MEDS ORDERED: DEXTROSE 5% IV ONE (20:00)
[2017-12-11] MEDS ORDERED: MIDAZOLAM IV ONE (20:00)
[2017-12-11] MEDS ORDERED: MIDAZOLAM PF 50 MG in 0.9 % SODIUM CHLORIDE 90 ML IV ONE (20:00)
[2017-12-11] MEDS ORDERED: WATER IV ONE (20:00)
--- NOTE | 2017-12-11 20:10 | XRay Report ---
HISTORY: Reason for Exam:Confirm OG placement FINDINGS: Normal gastric tube has been inserted. The tip is pointing superiorly in the lateral aspect of the gastric fundus. Stomach is decompressed. There is air and borderline dilated loops of small bowel in the left epigastrium. Severe infiltrates are present in both lungs. IMPRESSION: Oral gastric tube in the upper fundus of the stomach Interpreted and Authenticated by: Kalpesh Argueta 12/11/17
[2017-12-11] MEDS: FAMOTIDINE/PF 20 MG/2 ML VIAL IV SCH (23:15)
[2017-12-11] MEDS: CHLORHEXIDINE GLUCONATE 1 ML ORAL.SOL SWABMOUTH SCH (23:15)
[2017-12-12] MEDS: LACTATED RINGERS 1,000 ML IV SCH (00:27)
[2017-12-12] MEDS ORDERED: MIDAZOLAM PF 50 MG in 0.9 % SODIUM CHLORIDE 90 ML IV ONE (02:22)
[2017-12-12] MEDS: VANCOMYCIN 1,000 MG in 0.9 % SODIUM CHLORIDE 250 ML IV SCH ×2 (02:33→09:19)
[2017-12-12] MEDS: 0.9 % SODIUM CHLORIDE 250 ML IV SCH ×2 (02:40→13:54)
[2017-12-12] MEDS: IPRATROPIUM/ALBUTEROL 3 ML AMPUL.NEB NEB SCH ×6 (03:10→22:58)
[2017-12-12] MEDS: CHLORHEXIDINE GLUCONATE 1 ML ORAL.SOL SWABMOUTH SCH ×3 (04:00→21:22)
[2017-12-12 04:49] LABS: Basophils # (Auto) 0 K/mcL (0.0-0.3); Basophils % (Auto) 0 % (0.0-2.0); Eosinophils # (Auto) 0.1 K/mcL (0.0-0.7); Eosinophils % (Auto) 2.1 % (0.0-7.0); Granulocytes % (Auto) 81.2 % (38.0-78.0); Lymphocytes # (Auto) 0.5 K/mcL (1.5-4.8); Lymphocytes % (Auto) 9.2 % (15.5-49.0); Mean Cell Volume 96.7 fL (80.0-100.0); Mean Corpuscular HGB Conc 33.8 g/dL (31.0-36.0); Mean Corpuscular Hemoglobin 32.6 pg (26.0-34.0); Monocytes # (Auto) 0.4 K/mcL (0.1-0.9); Monocytes % (Auto) 7.5 % (1.0-12.0); Platelet Count 244 K/mcL (140-440); RBC 2.74 M/mcL (4.00-5.20); Red Cell Distribution Width 14.5 % (11.5-14.5)
[2017-12-12 04:54] LABS: Vancomycin,Random 17.2 ug/mL
[2017-12-12 04:56] LABS: ALT/SGPT 64 U/l (0-40); Albumin 2.7 gm/dL (3.2-5.2); Albumin/Globulin Ratio 1.2 (1.0-2.3); Alkaline Phosphatase 71 U/L (39-117); Bilirubin,Direct < 0.2 mg/dL (0.0-0.3); Blood Urea Nitrogen 43 mg/dl (8-23); Gamma Glutamyl Transpeptidase 85 U/L (5-36); Uric Acid 8.2 mg/dL (2.5-8.0)
[2017-12-12] MEDS: 0.9 % SODIUM CHLORIDE 10 ML SYRINGE IV SCH ×3 (05:10→21:23)
[2017-12-12] MEDS: LORazepam 2 MG/ML VIAL IV PRN ×2 (08:21→10:33)
--- NOTE | 2017-12-12 08:21 | XRay Report ---
INDICATION: Sepsis. Pneumonia. TECHNIQUE: AP chest x-ray,portable semierect COMPARISON: Chest x-rays dated 12/11/2017 and 12/09/2017 FINDINGS:Endotracheal tube tip 2 cm above the juan. Left central venous catheter is unchanged with its tip in the brachiocephalic vein. There may be a right central venous catheter although this is not certain. There is an esophagogastric tube with its tip caudal to the the inferior portion of the chest x-ray Bilateral diffuse pulmonary parenchymal infiltrates. There has been interval worsening since 12/09/2017. Heart size is unchanged. Etiology is not certain. Pneumonia is suspected. ARDS or pulmonary edema are possible. Pleural fluid is suspected although not well visualized on this single AP view. IMPRESSION: 1. Increasing bilateral diffuse pulmonary parenchymal infiltrates. Findings are consistent with pneumonia. Pulmonary edema or ARDS are possible. 2. Endotracheal tube as described above. Central venous catheter or catheters are also described. Interpreted and Authenticated by: Danny Mendoza 12/12/17
[2017-12-12] MEDS: methylPREDNISolone SOD SUCC 125 MG/2 ML VIAL IV SCH (09:16)
[2017-12-12] MEDS: FAMOTIDINE/PF 20 MG/2 ML VIAL IV SCH ×2 (09:17→21:22)
[2017-12-12] MEDS: HEPARIN 5,000 UNIT/ML VIAL SQ SCH ×2 (09:18→21:22)
[2017-12-12] MEDS: MULTIVIT,THER IRON,CA,FA & MIN 1 TABLET PO SCH (09:18)
[2017-12-12] MEDS: CEFEPIME 1 GM VIAL IV SCH ×2 (09:18→21:23)
[2017-12-12] MEDS: THIAMINE 100 MG TABLET PO SCH (09:19)
[2017-12-12] MEDS: MIDAZOLAM PF 50 MG in 0.9 % SODIUM CHLORIDE 90 ML IV SCH ×3 (10:09→21:10)
[2017-12-12] MEDS: LORazepam 50 MG in DEXTROSE 5% IN WATER 75 ML IV SCH (10:56)
[2017-12-12] MEDS ORDERED: LORazepam 50 MG in DEXTROSE 5% IN WATER 75 ML IV PRN (11:30)
--- NOTE | 2017-12-12 15:11 | Internal Med Progress Note ---
Medical - PN: Subj Patient information: Note initiated : 12/12/17 at 3:07 pm Service Date, if different from initiated Date: [] Patient: Sylvia Tucker 72 y/o F admitted on 12/08/17 for Weakness/Pneumonia, Sepsis. Chief Complaint: [] Interval history: According to the patient she was on a cruise in [place], where she fell sick, she was nose with pneumonia, and was treated by the physician on the cruise ship. She was given levofloxacin intravenously for 3 days and then continued oral levofloxacin for another 4-5 days. Patient notes that she had improved from this illness. On her way back on december this month she was starting to feel sick again, cough shortness of breath of exertion and some wheezing. Subjective sensation of fever and some chills. The patient's cough was associated with yellowish sputum, no blood in the sputum. The patient's breathing cough and weakness continued to get worse over the next few days and therefore the patient presented to the emergency room for further evaluation The patient denies any complaints, only sick contact is likely on the flight back. The patient has no headache, has chronic runny nose, no watery eyes no diplopia or changes in hearing, no difficulty in swallowing, has shortness of breath on exertion, has cough, she has no chest pain no palpitations. No nausea no vomiting no abdominal pain no bladder or bowel complaints. No joint pains denies any acute depression or anxiety. 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 No easy bruising or bleeding, She does have wheezing. in the emergency room the patient was afebrile, temperature 97.2, heart rate of 88, blood pressure 1 56 x 67, respiratory rate around 24-25, she was saturating 86% on room air, on presentation she was 76 or 78% on room air her oxygen saturation corrected with oxygen supplementation via nasal cannula. The patient was given Rocephin and Zithromax in the ED and presented for admission. The patient has a history of alcohol use, presently is drinking 1 drink 3 times a day with meals according to the . The patient obviously drank heavily on the cruise ship. The patient notes that they have set up a regime to help her cut back on the drinking december 09 Pt seen examined, off bipap this AM but needed later resp status stable, X ray shows kimmy pna improving on borad spectrum ABX high risk of withdrawal on wine with meals also ativan as needed microbiolgoy neg labs stable 12/10- patient critically ill. On BiPAP 14/8-55% FiO2. Severe respiratory distress. Active alcohol withdrawal requiring benzodiazepines protocol. at bedside. Patient arousable but remains high-risk aspiration. Would be a candidate for mechanical ventilation if continues to deteriorate. Continue close hemodynamic monitoring including electrolytes follow-up in light of active withdrawals. [place] score 21. Continue critical care management. white count uptrending at 12.2. Repeat chest x-ray in 24 hours. on broad antibiotic coverage including vancomycin/cefepime. recheck ABG 12/11- patient remains critically ill. Actively withdrawing and hallucinating ith psychomotor agitation requiring Versed/Ativan. Worsening bilateral infiltrates suggestive of ARDS. Large AA gradient with PaO2/FiO2 150. On 45% FiO2 BiPAP. Broad antibiotic coverage. white count 10.6. elevated LFTs. Multiple organ dysfunction. keep low threshold for transfer to tertiary Center. patient unable to hold BiPAP. Tachycardic and tachypneic at 35. Increase work of breathing. Impending respiratory failure. ARDS on chest imaging. Case discussed with patient's . Initiate mechanical ventilation for airway protection in light of worsening hypoxic respiratory failure and ongoing alcohol withdrawal. Central line placement 12/12-patient on mechanical ventilation. PEEP 8. FiO2 40%. Improving blood gas PaO2 of 240. plateau pressure 17. peak pressure 24 improved lung compliance. Continue gentle diuresis. ICU sedation on the diazepam/fentanyl. Active DT on benzodiazepines. Continue antibiotic coverage. Bilateral infiltrates on chest imaging service to above already ARDS/Ali however peak pressure/plateau satisfactory. echocardiogram preserved EF with moderate pulmonary hypertension. fluid balance net 2600. Continue diuresis. Patient remains critically ill - Constitutional Vitals: Vital Signs Temp Pulse Resp BP Pulse Ox 98.3 F 80 16 151/78 98 12/12/17 13:01 12/12/17 11:10 12/12/17 14:16 12/12/17 14:01 12/12/17 14:16 Period Temp Pulse Resp BP Sys/Esqueda Pulse Ox Last 24 Hr 97.3 F-98.3 F 48-110 11-29 119-176/53-127 91-100 Intake and Output 12/12/17 12/12/17 12/12/17 05:59 13:59 21:59 Intake Total 1081 / 1081 131 / 131 Output Total 174 / 174 150 / 150 20 / 20 Balance 907 / 907 - / - Weight 173 lb 4.8 oz Patient Weight 12/13/17 05:59 Weight 173 lb 4.8 oz Intake & Output: Intake & Output 12/12/17 12/12/17 12/12/17 05:59 13:59 21:59 Intake Total 1081 / 1081 131 / 131 Output Total 174 / 174 150 / 150 20 / 20 Balance 907 / 907 - / - Weight 173 lb 4.8 oz Intake: IV 1081 / 1081 131 / 131 Lactated Ringers 1,000 ml @ 60 897 / 897 mls/hr IV .[id number] [facility] Rx#: [id number] Versed 50 mg In Sodium Chloride 118 / 118 55 / 55 0.9% 90 ml @ 0.02 MG/KG/HR 3. 14 mls/hr IV Q24H [facility] Rx#: [id number] fentaNYL 2,500 MCG In Sodium 66 / 66 76 / 76 Chloride 0.9% 200 ml @ 25 MCG/ HR 2.5 mls/hr IV Q24H [facility] Rx#: [id number] Output: Urine Catheter Amount 174 / 174 150 / 150 20 / 20 Medical - PN: Obj Da - Labs CBC & Chem 7: 12/12/17 04:00 12/12/17 04:00 Labs: Abnormal Lab Results 12/12/17 12/12/17 12/11/17 04:00 04:00 08:25 WBC RBC 2.74 L Hgb 9.0 L Hct 26.5 L RDW Gran % 81.2 H Lymph % (Auto) 9.2 L Gran # Lymph # (Auto) 0.5 L Sodium 147 H Chloride 114 H Carbon Dioxide BUN 43 H Glucose 120 H Uric Acid 8.2 H Calcium 8.1 L Magnesium 2.6 H GGT 85 H AST 48 H ALT 64 H Lactate Dehydrogenase Total Protein 5.0 L Albumin 2.7 L Triglycerides 158 H Vancomycin Trough 26.8 H* 12/11/17 12/11/17 12/10/17 03:45 03:45 03:40 WBC RBC 3.54 L Hgb 11.4 L Hct 34.6 L RDW 15.0 H Gran % 87.4 H Lymph % (Auto) 7.5 L Gran # 9.3 H Lymph # (Auto) 0.8 L Sodium Chloride Carbon Dioxide 21 L BUN 38 H 30 H Glucose 124 H 161 H Uric Acid 8.8 H Calcium 8.5 L Magnesium 2.7 H 2.7 H GGT 69 H AST 172 H ALT 73 H Lactate Dehydrogenase 406 H 324 H Total Protein Albumin 3.0 L 3.1 L Triglycerides Vancomycin Trough 12/10/17 03:40 WBC 12.2 H RBC 3.90 L Hgb Hct RDW Gran % 87.5 H Lymph % (Auto) 7.7 L Gran # 10.7 H Lymph # (Auto) 0.9 L Sodium Chloride Carbon Dioxide BUN Glucose Uric Acid Calcium Magnesium GGT AST ALT Lactate Dehydrogenase Total Protein Albumin Triglycerides Vancomycin Trough Meds: Medications Acetaminophen (Tylenol) 650 mg PO Q6HP PRN PRN Reason: PAIN/FEVER > 101 Last Admin: 12/10/17 09:59 Dose: 650 mg Albuterol/Ipratropium (Duoneb) 3 ml NEB Q4HRT [facility] Last Admin: 12/12/17 11:10 Dose: 3 ml Cefepime HCl (Maxipime) 1 gm IV Q12H [facility] Last Admin: 12/12/17 09:18 Dose: 1 gm Chlorhexidine Gluconate (Peridex) 15 ml SWABMOUTH BID [facility] Last Admin: 12/12/17 09:19 Dose: 15 ml Clonidine HCl (Catapres) 0.1 mg PO Q4HP PRN PRN Reason: Alcohol Withdrawal Last Admin: 12/10/17 19:18 Dose: 0.1 mg Famotidine (Pepcid) 20 mg IV Q12 [facility] Last Admin: 12/12/17 09:17 Dose: 20 mg Heparin Sodium (Porcine) (Heparin) 5,000 unit SQ Q12 [facility] Last Admin: 12/12/17 09:18 Dose: 5,000 unit Lactated Ringer's (Lactated Ringers) 1,000 mls @ 60 mls/hr IV .[id number] [facility] Stop: 12/12/17 15:44 Last Admin: 12/12/17 00:27 Dose: 60 mls/hr Fentanyl 2,500 mcg/ Sodium (Chloride) 250 mls @ 2.5 mls/hr IV Q24H [facility]; 25 MCG/ HR PRN Reason: Protocol Last Titration: 12/12/17 10:50 Dose: 125 mcg/hr, 12.5 mls/hr Heparin Sodium/Sodium Chloride (Heparin/Ns) 500 mls @ 0 mls/hr IV .Q0M [facility]; KVO PRN Reason: Protocol Midazolam HCl 50 mg/ Sodium (Chloride) 100 mls @ 3.14 mls/hr IV Q24H [facility]; 0.02 MG/KG/HR PRN Reason: Protocol Last Titration: 12/12/17 10:55 Dose: 0.09 mg/kg/hr, 15 mls/hr Sodium Chloride (Sodium Chloride 0.9%) 250 mls @ 20 mls/hr IV .[id number] [facility] Last Admin: 12/12/17 13:54 Dose: Not Given Vancomycin HCl 1,000 mg/ (Sodium Chloride) 250 mls @ 250 mls/hr IV DAILY [facility] Last Admin: 12/12/17 09:19 Dose: 250 mls/hr Lorazepam 50 mg/ Dextrose 100 mls @ 1.57 mls/hr IV Q12HP PRN; Protocol; 0.01 MG /KG/HR PRN Reason: ALCOHOL WITHDRAWAL/SEDATION Iron Carb/Multivit/[place]/Folic Acid (Multivitamin W/Minerals) 1 tab PO DAILY [facility] Last Admin: 12/12/17 09:18 Dose: Not Given Lorazepam (Ativan) 0 mg IV Q4HP PRN; Protocol PRN Reason: Alcohol Withdrawal Last Admin: 12/12/17 10:33 Dose: 2 mg Methylprednisolone Sodium Succinate (Solu-Medrol) 62.5 mg IV DAILY [facility] Last Admin: 12/12/17 09:16 Dose: 62.5 mg Ondansetron HCl (Zofran) 4 mg IV Q6HP PRN PRN Reason: Nausea And Vomiting Sodium Chloride (Saline Flush) 10 ml IV Q8 [facility] Last Admin: 12/12/17 13:53 Dose: 10 ml Sodium Chloride (Saline Flush) 10 ml IV UD PRN PRN Reason: medication Thiamine HCl (Vitamin B1) 100 mg PO DAILY [facility] Last Admin: 12/12/17 09:19 Dose: Not Given Vancomycin HCl (Vancomycin Per Pharmacy) 1 order IV UD [facility] Medical - PN: A/P - Time Spent With Patient Total time spent is greater than 50% in coordination of care (as documented) at patient's floor/unit and/or counseling patient: Greater than 35 minutes (critical care time) - Narrative A/P Narrative: A/P * Hypoxic respiratory failure- AL I/early ARDS. However improved plateau pressures. continue serial chest imaging/blood gases. interval worsening chest infiltrates. * ARDS- continue lung protective ventilation with diuresis , low tidal volume, high PEEP * Health care associated Pneumonia- continue cefepime and vancomycin. worsening chest infiltrates and intervals imaging * Severe sepsis - white count 10.6. * Severe alcohol withdrawal with DT-continue benzodiazepines protocol. prior medical issues * Hypertension * Peripheral Neuropathy * Hypothyroidism * Pulmonary fibrosis? noted on Chest X Ray * COPD? vs Reactive Air way disease * DVT prophylaxis on heparin Plan * mechanical ventilation per protocol with ICU sedation * benzodiazepine for delirium tremens * continue broad antibiotic coverage * patient critically ill
[2017-12-12] MEDS ORDERED: FUROSEMIDE 20 MG/2 ML VIAL IV ONE (15:12)
[2017-12-12] MEDS: PROPOFOL 1,000 MG in PREMIX 1 BAG IV SCH (16:46)
[2017-12-12] MEDS: fentaNYL 2,500 MCG in 0.9 % SODIUM CHLORIDE 200 ML IV SCH (16:47)
--- NOTE | 2017-12-12 17:37 | XRay Report ---
CLINICAL INFORMATION: Esophagogastric tube placement TECHNIQUE: AP portable supine abdomen centered at the diaphragm COMPARISON: Previous chest x-ray dated 12/12/2017 FINDINGS: Esophagogastric tube with its tip in the body of the stomach. There is an endotracheal tube with its 3 cm above the juan. There is a left-sided central venous catheter with its tip in the brachiocephalic vein. Bilateral pulmonary parenchymal infiltrates are unchanged IMPRESSION: Esophagogastric tube in the stomach. Interpreted and Authenticated by: Danny Mendoza 12/12/17
[2017-12-13] MEDS: 0.9 % SODIUM CHLORIDE 250 ML IV SCH ×2 (01:54→17:13)
[2017-12-13] MEDS: IPRATROPIUM/ALBUTEROL 3 ML AMPUL.NEB NEB SCH ×6 (02:30→23:08)
[2017-12-13] MEDS: LORazepam 2 MG/ML VIAL IV PRN (04:48)
[2017-12-13 05:42] LABS: Basophils # (Auto) 0 K/mcL (0.0-0.3); Basophils % (Auto) 0 % (0.0-2.0); Eosinophils # (Auto) 0.1 K/mcL (0.0-0.7); Eosinophils % (Auto) 2.2 % (0.0-7.0); Granulocytes % (Auto) 85.2 % (38.0-78.0); Lymphocytes # (Auto) 0.4 K/mcL (1.5-4.8); Mean Cell Volume 97.2 fL (80.0-100.0); Mean Corpuscular HGB Conc 33.2 g/dL (31.0-36.0); Mean Corpuscular Hemoglobin 32.3 pg (26.0-34.0); Monocytes # (Auto) 0.4 K/mcL (0.1-0.9); Monocytes % (Auto) 5.6 % (1.0-12.0); Platelet Count 253 K/mcL (140-440); RBC 2.74 M/mcL (4.00-5.20); Red Cell Distribution Width 15.1 % (11.5-14.5)
[2017-12-13] MEDS: 0.9 % SODIUM CHLORIDE 10 ML SYRINGE IV SCH ×3 (06:27→20:21)
[2017-12-13 06:34] LABS: ALT/SGPT 47 U/l (0-40); Albumin 2.9 gm/dL (3.2-5.2); Albumin/Globulin Ratio 1.3 (1.0-2.3); Alkaline Phosphatase 65 U/L (39-117); Bilirubin,Direct < 0.2 mg/dL (0.0-0.3); Blood Urea Nitrogen 46 mg/dl (8-23); Gamma Glutamyl Transpeptidase 83 U/L (5-36); Uric Acid 6.1 mg/dL (2.5-8.0)
--- NOTE | 2017-12-13 06:39 | XRay Report ---
INDICATION: Ventilator management TECHNIQUE: AP chest x-ray,portable semiupright COMPARISON: 12/12/2017, 12/11/2017, 12/09/2017, 12/08/2017 FINDINGS:Endotracheal tube tip remains in unchanged position, approximately 4 cm above the juan. Left central venous catheter tip is unchanged and in the brachiocephalic vein. There is an esophagogastric tube in the stomach. Bilateral diffuse pulmonary parenchymal infiltrates. Dense infiltrates at both lung bases. Pleural fluid is possible. No change in heart size. Etiology of these infiltrates is not certain. Findings may be due to pulmonary edema. ARDS or diffuse pneumonia possible. No definite interval change since 12/12/2017. IMPRESSION: 1. Diffuse pulmonary parenchymal infiltrates. Possible bilateral pleural effusions. 2. No significant interval change since 12/12/2017 Interpreted and Authenticated by: Danny Mendoza 12/13/17
[2017-12-13] MEDS ORDERED: DEXTROSE 5%-1/4NS 1,000 ML IV SCH (08:15)
[2017-12-13] MEDS: methylPREDNISolone SOD SUCC 125 MG/2 ML VIAL IV SCH (08:42)
[2017-12-13] MEDS: CEFEPIME 1 GM VIAL IV SCH ×2 (08:43→20:21)
[2017-12-13] MEDS: HEPARIN 5,000 UNIT/ML VIAL SQ SCH ×2 (08:43→20:21)
[2017-12-13] MEDS: FAMOTIDINE/PF 20 MG/2 ML VIAL IV SCH ×2 (08:43→20:21)
[2017-12-13 09:07] LABS: Vancomycin,Random 18.1 ug/mL
[2017-12-13] MEDS: FUROSEMIDE 20 MG/2 ML VIAL IV SCH (09:24)
[2017-12-13] MEDS: MULTIVIT,THER IRON,CA,FA & MIN 1 TABLET PO SCH (09:25)
[2017-12-13] MEDS: VANCOMYCIN 1,000 MG in 0.9 % SODIUM CHLORIDE 250 ML IV SCH (09:26)
[2017-12-13] MEDS: THIAMINE 100 MG TABLET PO SCH (09:45)
[2017-12-13] MEDS: DEXTROSE 5% IN WATER 1,000 ML IV SCH (09:46)
[2017-12-13] MEDS: CHLORHEXIDINE GLUCONATE 1 ML ORAL.SOL SWABMOUTH SCH ×2 (09:47→20:22)
[2017-12-13] MEDS ORDERED: DEXTROSE 5% IV SCH (12:00)
[2017-12-13] MEDS ORDERED: WATER IV SCH (12:00)
[2017-12-13] MEDS ORDERED: FENTANYL IV SCH (12:00)
[2017-12-13] MEDS: WATER IV SCH (13:03)
[2017-12-13] MEDS: FENTANYL IV SCH (13:03)
[2017-12-13] MEDS: DEXTROSE 5% IV SCH (13:03)
[2017-12-13] MEDS: PROPOFOL 1,000 MG in PREMIX 1 BAG IV SCH ×2 (13:08→17:11)
--- NOTE | 2017-12-13 14:00 | XRay Report ---
INDICATION: Hypoxia TECHNIQUE: AP chest x-ray,portable semiupright chest x-ray COMPARISON: Previous chest x-rays dated 12/13/2017, 12/12/2017, 12/11/2017 FINDINGS:No change in endotracheal tube position. Endotracheal tube remains within the trachea, approximately 3 cm above the juan. Left central venous catheter is unchanged. Esophagogastric tube remains in the stomach. Bilateral diffuse pulmonary parenchymal infiltrates with bibasilar consolidation. Appearance is unchanged since 12/13/2017. Etiology remains not certain. Findings are consistent with diffuse pneumonia. ARDS, pulmonary edema, pulmonary hemorrhage are possible. The ICU was called with these results IMPRESSION: 1. No change in endotracheal tube position. 2. Diffuse pulmonary parenchymal infiltrates with bibasilar consolidation. Interpreted and Authenticated by: Danny Mendoza 12/13/17
--- NOTE | 2017-12-13 14:36 | Internal Med Progress Note ---
Medical - PN: Subj Patient information: Note initiated : 12/13/17 at 2:32 pm Service Date, if different from initiated Date: [] Patient: Sylvia Tucker 72 y/o F admitted on 12/08/17 for Weakness/Pneumonia, Sepsis. Chief Complaint: [] Interval history: According to the patient she was on a cruise in [place], where she fell sick, she was nose with pneumonia, and was treated by the physician on the cruise ship. She was given levofloxacin intravenously for 3 days and then continued oral levofloxacin for another 4-5 days. Patient notes that she had improved from this illness. On her way back on december this month she was starting to feel sick again, cough shortness of breath of exertion and some wheezing. Subjective sensation of fever and some chills. The patient's cough was associated with yellowish sputum, no blood in the sputum. The patient's breathing cough and weakness continued to get worse over the next few days and therefore the patient presented to the emergency room for further evaluation The patient denies any complaints, only sick contact is likely on the flight back. The patient has no headache, has chronic runny nose, no watery eyes no diplopia or changes in hearing, no difficulty in swallowing, has shortness of breath on exertion, has cough, she has no chest pain no palpitations. No nausea no vomiting no abdominal pain no bladder or bowel complaints. No joint pains denies any acute depression or anxiety. 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 No easy bruising or bleeding, She does have wheezing. in the emergency room the patient was afebrile, temperature 97.2, heart rate of 88, blood pressure 1 56 x 67, respiratory rate around 24-25, she was saturating 86% on room air, on presentation she was 76 or 78% on room air her oxygen saturation corrected with oxygen supplementation via nasal cannula. The patient was given Rocephin and Zithromax in the ED and presented for admission. The patient has a history of alcohol use, presently is drinking 1 drink 3 times a day with meals according to the . The patient obviously drank heavily on the cruise ship. The patient notes that they have set up a regime to help her cut back on the drinking december 09 Pt seen examined, off bipap this AM but needed later resp status stable, X ray shows kimmy pna improving on borad spectrum ABX high risk of withdrawal on wine with meals also ativan as needed microbiolgoy neg labs stable 12/10- patient critically ill. On BiPAP 14/8-55% FiO2. Severe respiratory distress. Active alcohol withdrawal requiring benzodiazepines protocol. at bedside. Patient arousable but remains high-risk aspiration. Would be a candidate for mechanical ventilation if continues to deteriorate. Continue close hemodynamic monitoring including electrolytes follow-up in light of active withdrawals. [place] score 21. Continue critical care management. white count uptrending at 12.2. Repeat chest x-ray in 24 hours. on broad antibiotic coverage including vancomycin/cefepime. recheck ABG 12/11- patient remains critically ill. Actively withdrawing and hallucinating ith psychomotor agitation requiring Versed/Ativan. Worsening bilateral infiltrates suggestive of ARDS. Large AA gradient with PaO2/FiO2 150. On 45% FiO2 BiPAP. Broad antibiotic coverage. white count 10.6. elevated LFTs. Multiple organ dysfunction. keep low threshold for transfer to tertiary Center. patient unable to hold BiPAP. Tachycardic and tachypneic at 35. Increase work of breathing. Impending respiratory failure. ARDS on chest imaging. Case discussed with patient's . Initiate mechanical ventilation for airway protection in light of worsening hypoxic respiratory failure and ongoing alcohol withdrawal. Central line placement 12/12-patient on mechanical ventilation. PEEP 8. FiO2 40%. Improving blood gas PaO2 of 240. plateau pressure 17. peak pressure 24 improved lung compliance. Continue gentle diuresis. ICU sedation on the diazepam/fentanyl. Active DT on benzodiazepines. Continue antibiotic coverage. Bilateral infiltrates on chest imaging service to above already ARDS/Ali however peak pressure/plateau satisfactory. echocardiogram preserved EF with moderate pulmonary hypertension. fluid balance net 2600. Continue diuresis. Patient remains critically ill 12/13-Patient on mechanical ventilation. 40% FiO2. Blood gas 7.49/34/76 on 50% FiO2 improving to 7.4/35/122 on 40% FiO2. No overnight events. On propofol/ medazepam. DTs improved with no active seizures. Improving and stabilizing hemodynamics.lani count 6.2. emoglobin 8.8. sodium uptrending from 142-147-150 in 48 hours. Start free water replacement and switched all IV fluids to D5W. repeat BMP 6 PM. creatinine 1.2. Sputum culture Carrie . continue mechanical ventilation and start sedation holiday a.m.. Repeat chest imaging reveals diffuse pulmonary parenchymal infiltrates with bibasilar consolidation. Continue broad-spectrum antibiotics. patient remains critically ill - Constitutional Vitals: Vital Signs Temp Pulse Resp BP Pulse Ox 97.6 F 65 16 169/85 89 L 12/13/17 07:01 12/13/17 10:56 12/13/17 14:07 12/13/17 14:01 12/13/17 14:07 Period Temp Pulse Resp BP Sys/Esqueda Pulse Ox Last 24 Hr 97.4 F-98.2 F 55-98 16-34 134-169/65-89 84-100 Intake and Output 12/13/17 12/13/17 12/13/17 05:59 13:59 21:59 Intake Total 397 / 397 661 / 661 Output Total 30 / 30 Balance 189 / 189 459 / 459 -30 / -30 Intake & Output: Intake & Output 12/13/17 12/13/17 12/13/17 05:59 13:59 21:59 Intake Total 397 / 397 661 / 661 Output Total / 30 Balance 189 / 189 459 / 459 -30 / -30 Intake: IV 37 / 37 461 / 461 Dextrose 5%-Sod Chloride 0.2% 1 58 / 58 ,000 ml @ 50 mls/hr IV .Q20H [facility] Rx#:[id number] Versed 50 mg In Sodium Chloride / 77 / 77 0.9% 90 ml @ 0.02 MG/KG/HR 3. 14 mls/hr IV Q24H [facility] Rx#: [id number] Diprivan 1,000 mg In Premix 1 76 / 76 Bag @ 5 MCG/KG/MIN 2.35 mls/hr IV .Q24H [facility] Rx#:[id number] fentaNYL 2,500 MCG In Sodium 250 / 250 Chloride 0.9% 200 ml @ 25 MCG/ HR 2.5 mls/hr IV Q24H [facility] Rx#: [id number] Tube Feeding 300 / 300 GI Tube Flush 60 / 60 200 / 200 Output: Urine Catheter Amount 30 General appearance: no acute distress Exam: on mechanical ventilation ICU sedation Minimal response to verbal stimuli No telemetry events Foleys draining clear urine Symmetric breath sounds Medical - PN: Obj Da - Labs CBC & Chem 7: 12/13/17 03:41 12/13/17 03:41 Labs: Abnormal Lab Results 12/13/17 12/13/17 12/12/17 03:41 03:41 17:02 RBC 2.74 L Hgb 8.8 L Hct 26.6 L RDW 15.1 H Gran % 85.2 H Lymph % (Auto) 7.0 L Gran # Lymph # (Auto) 0.4 L Sodium 150 H Chloride 116 H Carbon Dioxide 21 L BUN 46 H Creatinine 1.2 H Glucose 134 H Uric Acid Calcium 8.2 L Magnesium 2.7 H GGT 83 H AST ALT 47 H Lactate Dehydrogenase Total Protein 5.1 L Albumin 2.9 L Prealbumin 19.2 L Triglycerides 201 H Vancomycin Trough 12/12/17 12/12/17 12/11/17 04:00 04:00 08:25 RBC 2.74 L Hgb 9.0 L Hct 26.5 L RDW Gran % 81.2 H Lymph % (Auto) 9.2 L Gran # Lymph # (Auto) 0.5 L Sodium 147 H Chloride 114 H Carbon Dioxide BUN 43 H Creatinine Glucose 120 H Uric Acid 8.2 H Calcium 8.1 L Magnesium 2.6 H GGT 85 H AST 48 H ALT 64 H Lactate Dehydrogenase Total Protein 5.0 L Albumin 2.7 L Prealbumin Triglycerides 158 H Vancomycin Trough 26.8 H* 12/11/17 12/11/17 03:45 03:45 RBC 3.54 L Hgb 11.4 L Hct 34.6 L RDW 15.0 H Gran % 87.4 H Lymph % (Auto) 7.5 L Gran # 9.3 H Lymph # (Auto) 0.8 L Sodium Chloride Carbon Dioxide 21 L BUN 38 H Creatinine Glucose 124 H Uric Acid 8.8 H Calcium 8.5 L Magnesium 2.7 H GGT 69 H AST 172 H ALT 73 H Lactate Dehydrogenase 406 H Total Protein Albumin 3.0 L Prealbumin Triglycerides Vancomycin Trough Meds: Medications Acetaminophen (Tylenol) 650 mg PO Q6HP PRN PRN Reason: PAIN/FEVER > 101 Last Admin: 12/10/17 09:59 Dose: 650 mg Albuterol/Ipratropium (Duoneb) 3 ml NEB Q4HRT [facility] Last Admin: 12/13/17 10:55 Dose: 3 ml Cefepime HCl (Maxipime) 1 gm IV Q12H [facility] Last Admin: 12/13/17 08:43 Dose: 1 gm Chlorhexidine Gluconate (Peridex) 15 ml SWABMOUTH BID [facility] Last Admin: 12/13/17 09:47 Dose: 15 ml Clonidine HCl (Catapres) 0.1 mg PO Q4HP PRN PRN Reason: Alcohol Withdrawal Last Admin: 12/10/17 19:18 Dose: 0.1 mg Famotidine (Pepcid) 20 mg IV Q12 [facility] Last Admin: 12/13/17 08:43 Dose: 20 mg Furosemide (Lasix) 20 mg IV DAILY [facility] Last Admin: 12/13/17 09:24 Dose: Not Given Heparin Sodium (Porcine) (Heparin) 5,000 unit SQ Q12 [facility] Last Admin: 12/13/17 08:43 Dose: 5,000 unit Heparin Sodium/Sodium Chloride (Heparin/Ns) 500 mls @ 0 mls/hr IV .Q0M [facility]; KVO PRN Reason: Protocol Midazolam HCl 50 mg/ Sodium (Chloride) 100 mls @ 3.14 mls/hr IV Q24H [facility]; 0.02 MG/KG/HR PRN Reason: Protocol Last Titration: 12/13/17 08:03 Dose: Infused Sodium Chloride (Sodium Chloride 0.9%) 250 mls @ 20 mls/hr IV .[id number] [facility] Last Admin: 12/13/17 01:54 Dose: 20 mls/hr Lorazepam 50 mg/ Dextrose 100 mls @ 1.57 mls/hr IV Q12HP PRN; Protocol; 0.01 MG /KG/HR PRN Reason: ALCOHOL WITHDRAWAL/SEDATION Propofol 1,000 mg/ Premix 100 mls @ 2.35 mls/hr IV .Q24H [facility]; 5 MCG/KG/MIN PRN Reason: Protocol Last Admin: 12/13/17 13:08 Dose: 15 mcg/kg/min, 7.07 mls/hr Dextrose (Dextrose 5% In Water) 1,000 mls @ 50 mls/hr IV .Q20H [facility] Last Admin: 12/13/17 09:46 Dose: 50 mls/hr Vancomycin HCl 1,000 mg/ (Dextrose) 250 mls @ 250 mls/hr IV Q24H [facility] Fentanyl 2,500 mcg/ Dextrose 250 mls @ 2.5 mls/hr IV Q24H [facility]; 25 MCG/HR PRN Reason: Protocol Last Admin: 12/13/17 13:03 Dose: 125 mcg/hr, 12.5 mls/hr Iron Carb/Multivit/[employer]/Folic Acid (Multivitamin W/Minerals) 1 tab PO DAILY [facility] Last Admin: 12/13/17 09:25 Dose: Not Given Lorazepam (Ativan) 0 mg IV Q4HP PRN; Protocol PRN Reason: Alcohol Withdrawal Last Admin: 12/13/17 04:48 Dose: 2 mg Methylprednisolone Sodium Succinate (Solu-Medrol) 62.5 mg IV DAILY [facility] Last Admin: 12/13/17 08:42 Dose: 62.5 mg Ondansetron HCl (Zofran) 4 mg IV Q6HP PRN PRN Reason: Nausea And Vomiting Sodium Chloride (Saline Flush) 10 ml IV Q8 [facility] Last Admin: 12/13/17 06:27 Dose: 10 ml Sodium Chloride (Saline Flush) 10 ml IV UD PRN PRN Reason: medication Thiamine HCl (Vitamin B1) 100 mg PO DAILY [facility] Last Admin: 12/13/17 09:45 Dose: Not Given Vancomycin HCl (Vancomycin Per Pharmacy) 1 order IV UD [facility] Medical - PN: A/P - Time Spent With Patient Total time spent is greater than 50% in coordination of care (as documented) at patient's floor/unit and/or counseling patient: Greater than 35 minutes (ritical care time) - Narrative A/P Narrative: A/P * Hypoxic respiratory failure- AL I/early ARDS. However improved plateau pressures. continue mechanical ventilation support * bilateral infiltrates/ARDS- continue lung protective ventilation with diuresis , low tidal volume, high PEEP. clinical improvement noted since previous day * Health care associated Pneumonia- continue cefepime and vancomycin. no interval change on chest imaging. * Severe sepsis - clinically improving. white count .2. * Severe alcohol withdrawal with DT-continue benzodiazepines protocol. prior medical issues * Hypertension * Peripheral Neuropathy * Hypothyroidism * Pulmonary fibrosis? noted on Chest X Ray * COPD? vs Reactive Air way disease * DVT prophylaxis on heparin Plan * Continue mechanical ventilation per protocol with ICU sedation on propofol/ versed * continue broad antibiotic coverage * erial ABG/chest imaging * sedation holiday in a.m. * patient remains critically ill
[2017-12-13] MEDS: MIDAZOLAM PF 50 MG in 0.9 % SODIUM CHLORIDE 90 ML IV SCH (15:44)
[2017-12-14] MEDS: MIDAZOLAM PF 50 MG in 0.9 % SODIUM CHLORIDE 90 ML IV SCH (01:50)
[2017-12-14] MEDS: IPRATROPIUM/ALBUTEROL 3 ML AMPUL.NEB NEB SCH ×6 (03:01→23:09)
[2017-12-14] MEDS: PROPOFOL 1,000 MG in PREMIX 1 BAG IV SCH ×4 (03:50→20:35)
[2017-12-14] MEDS: 0.9 % SODIUM CHLORIDE 250 ML IV SCH ×2 (04:07→15:18)
[2017-12-14] MEDS: DEXTROSE 5% IN WATER 1,000 ML IV SCH (05:26)
[2017-12-14] MEDS: 0.9 % SODIUM CHLORIDE 10 ML SYRINGE IV SCH ×2 (06:17→15:20)
--- NOTE | 2017-12-14 06:25 | XRay Report ---
INDICATION: Sepsis. Pneumonia. TECHNIQUE: AP chest x-ray,semiupright portable COMPARISON: Multiple previous examinations including studies dated 12/13/2017, 12/12/2017, 12/11/2017 FINDINGS:No change in left central venous catheter, endotracheal tube, or esophagogastric tube. Bilateral diffuse pulmonary parenchymal infiltrates with bibasilar predominance. Probable pleural effusions. Radiographic appearance is essentially unchanged. Findings remain nonspecific. Pneumonia is likely. ARDS or pulmonary edema are possible. IMPRESSION: Diffuse pulmonary parenchymal infiltrates as above. No definite interval change Interpreted and Authenticated by: Danny Mendoza 12/14/17
[2017-12-14 06:27] LABS: Basophils # (Auto) 0 K/mcL (0.0-0.3); Basophils % (Auto) 0.1 % (0.0-2.0); Eosinophils # (Auto) 0.2 K/mcL (0.0-0.7); Eosinophils % (Auto) 2.6 % (0.0-7.0); Granulocytes % (Auto) 86.7 % (38.0-78.0); Lymphocytes # (Auto) 0.6 K/mcL (1.5-4.8); Lymphocytes % (Auto) 6.6 % (15.5-49.0); Mean Cell Volume 97.5 fL (80.0-100.0); Mean Corpuscular HGB Conc 33.3 g/dL (31.0-36.0); Mean Corpuscular Hemoglobin 32.5 pg (26.0-34.0); Monocytes # (Auto) 0.4 K/mcL (0.1-0.9); Platelet Count 245 K/mcL (140-440); RBC 2.65 M/mcL (4.00-5.20); Red Cell Distribution Width 14.8 % (11.5-14.5)
[2017-12-14] MEDS: THIAMINE 100 MG TABLET PO SCH (07:50)
[2017-12-14] MEDS: MULTIVIT,THER IRON,CA,FA & MIN 1 TABLET PO SCH (07:50)
[2017-12-14] MEDS: methylPREDNISolone SOD SUCC 125 MG/2 ML VIAL IV SCH (07:56)
[2017-12-14 07:57] LABS: ALT/SGPT 34 U/l (0-40); Albumin 2.9 gm/dL (3.2-5.2); Albumin/Globulin Ratio 1.3 (1.0-2.3); Alkaline Phosphatase 56 U/L (39-117); Bilirubin,Direct < 0.2 mg/dL (0.0-0.3); Blood Urea Nitrogen 43 mg/dl (8-23); Gamma Glutamyl Transpeptidase 73 U/L (5-36); Uric Acid 3.7 mg/dL (2.5-8.0)
[2017-12-14] MEDS: FAMOTIDINE/PF 20 MG/2 ML VIAL IV SCH ×2 (07:57→20:33)
[2017-12-14] MEDS: CEFEPIME 1 GM VIAL IV SCH ×2 (07:57→20:34)
[2017-12-14] MEDS: HEPARIN 5,000 UNIT/ML VIAL SQ SCH ×2 (07:57→20:33)
[2017-12-14] MEDS: CHLORHEXIDINE GLUCONATE 1 ML ORAL.SOL SWABMOUTH SCH (07:59)
[2017-12-14] MEDS: FUROSEMIDE 20 MG/2 ML VIAL IV SCH ×3 (08:46→20:34)
[2017-12-14] MEDS: VANCOMYCIN 1,000 MG in DEXTROSE 5% IN WATER 250 ML IV SCH (10:43)
--- NOTE | 2017-12-14 10:56 | Internal Med Progress Note ---
Medical - PN: Subj Patient information: Note initiated : 12/14/17 at 10:54 am Service Date, if different from initiated Date: [] Patient: Sylvia Tucker 72 y/o F admitted on 12/08/17 for Weakness/Pneumonia, Sepsis. Chief Complaint: [] Interval history: According to the patient she was on a cruise in [place], where she fell sick, she was nose with pneumonia, and was treated by the physician on the cruise ship. She was given levofloxacin intravenously for 3 days and then continued oral levofloxacin for another 4-5 days. Patient notes that she had improved from this illness. On her way back on december this month she was starting to feel sick again, cough shortness of breath of exertion and some wheezing. Subjective sensation of fever and some chills. The patient's cough was associated with yellowish sputum, no blood in the sputum. The patient's breathing cough and weakness continued to get worse over the next few days and therefore the patient presented to the emergency room for further evaluation The patient denies any complaints, only sick contact is likely on the flight back. The patient has no headache, has chronic runny nose, no watery eyes no diplopia or changes in hearing, no difficulty in swallowing, has shortness of breath on exertion, has cough, she has no chest pain no palpitations. No nausea no vomiting no abdominal pain no bladder or bowel complaints. No joint pains denies any acute depression or anxiety. 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 No easy bruising or bleeding, She does have wheezing. in the emergency room the patient was afebrile, temperature 97.2, heart rate of 88, blood pressure 1 56 x 67, respiratory rate around 24-25, she was saturating 86% on room air, on presentation she was 76 or 78% on room air her oxygen saturation corrected with oxygen supplementation via nasal cannula. The patient was given Rocephin and Zithromax in the ED and presented for admission. The patient has a history of alcohol use, presently is drinking 1 drink 3 times a day with meals according to the . The patient obviously drank heavily on the cruise ship. The patient notes that they have set up a regime to help her cut back on the drinking december 09 Pt seen examined, off bipap this AM but needed later resp status stable, X ray shows kimmy pna improving on borad spectrum ABX high risk of withdrawal on wine with meals also ativan as needed microbiolgoy neg labs stable 12/10- patient critically ill. On BiPAP 14/8-55% FiO2. Severe respiratory distress. Active alcohol withdrawal requiring benzodiazepines protocol. at bedside. Patient arousable but remains high-risk aspiration. Would be a candidate for mechanical ventilation if continues to deteriorate. Continue close hemodynamic monitoring including electrolytes follow-up in light of active withdrawals. Odonnell score 21. Continue critical care management. white count uptrending at 12.2. Repeat chest x-ray in 24 hours. on broad antibiotic coverage including vancomycin/cefepime. recheck ABG 12/11- patient remains critically ill. Actively withdrawing and hallucinating ith psychomotor agitation requiring Versed/Ativan. Worsening bilateral infiltrates suggestive of ARDS. Large AA gradient with PaO2/FiO2 150. On 45% FiO2 BiPAP. Broad antibiotic coverage. white count 10.6. elevated LFTs. Multiple organ dysfunction. keep low threshold for transfer to tertiary Center. patient unable to hold BiPAP. Tachycardic and tachypneic at 35. Increase work of breathing. Impending respiratory failure. ARDS on chest imaging. Case discussed with patient's . Initiate mechanical ventilation for airway protection in light of worsening hypoxic respiratory failure and ongoing alcohol withdrawal. Central line placement 12/12-patient on mechanical ventilation. PEEP 8. FiO2 40%. Improving blood gas PaO2 of 240. plateau pressure 17. peak pressure 24 improved lung compliance. Continue gentle diuresis. ICU sedation on the diazepam/fentanyl. Active DT on benzodiazepines. Continue antibiotic coverage. Bilateral infiltrates on chest imaging service to above already ARDS/Ali however peak pressure/plateau satisfactory. echocardiogram preserved EF with moderate pulmonary hypertension. fluid balance net 2600. Continue diuresis. Patient remains critically ill 12/13-Patient on mechanical ventilation. 40% FiO2. Blood gas 7.49/34/76 on 50% FiO2 improving to 7.4/35/122 on 40% FiO2. No overnight events. On propofol/ medazepam. DTs improved with no active seizures. Improving and stabilizing hemodynamics.lani count 6.2. emoglobin 8.8. sodium uptrending from 142-147-150 in 48 hours. Start free water replacement and switched all IV fluids to D5W. repeat BMP 6 PM. creatinine 1.2. Sputum culture Carrie . continue mechanical ventilation and start sedation holiday a.m.. Repeat chest imaging reveals diffuse pulmonary parenchymal infiltrates with bibasilar consolidation. Continue broad-spectrum antibiotics. patient remains critically ill 12/14-patient on mechanical ventilation. Continue ICU sedation on propofol/ fentanyl. DC Versed. No further active DTs or withdrawal symptoms. Patient successfully passed sedation holiday this morning without any significant psychomotor agitation or tachycardia. Good urine output. Hemodynamics stable. On 30% FiO2 tidal volume 450 AC 14 and low plateau pressures. Sodium down to 143 with free water replacement. Start aggressive diuresis to improve lung compliance. Possible extubation in 24 hours.hemoglobin down to 8.6 from peak of 12.6. Patient's at bedside. Discussed treatment plan. - Constitutional Vitals: Vital Signs Temp Pulse Resp BP Pulse Ox 97.0 F 60 19 189/98 97 12/14/17 07:00 12/14/17 06:55 12/14/17 09:19 12/14/17 09:02 12/14/17 09:19 Period Temp Pulse Resp BP Sys/Esqueda Pulse Ox Last 24 Hr 97.0 F-97.9 F 52-71 0-22 110-189/54-98 89-100 Intake and Output 12/13/17 12/14/17 12/14/17 21:59 05:59 13:59 Intake Total 1497 / 1497 1986 669 / 669 Output Total 315 / 315 226 / 226 135 / 135 Balance 1182 / 1182 1761 / 1761 534 / 534 Weight 175 lb Intake & Output: Intake & Output 12/13/17 12/14/17 12/14/17 21:59 05:59 13:59 Intake Total 1497 / 1497 1986 669 / 669 Output Total 315 / 315 226 / 226 135 / 135 Balance 1182 / 1182 1761 / 1761 534 / 534 Weight 175 lb Intake: IV 332 / 332 1250 / 1250 469 / 469 Sodium Chloride 0.9% 250 ml @ 250 / 250 20 mls/hr IV .[id number] [facility] Rx#: [id number] Dextrose 5% in Water 1,000 ml @ 978 / 978 272 / 272 50 mls/hr IV .Q20H [facility] Rx#: [id number] Versed 50 mg In Sodium Chloride 100 / 100 51 / 51 0.9% 90 ml @ 0.02 MG/KG/HR 3. 14 mls/hr IV Q24H [facility] Rx#: [id number] Diprivan 1,000 mg In Premix 1 82 / 82 18 / 18 64 / 64 Bag @ 5 MCG/KG/MIN 2.35 mls/hr IV .Q24H [facility] Rx#:[id number] fentaNYL 2,500 MCG In Dextrose 154 / 154 82 / 82 5% in Water 200 ml @ 25 MCG/HR 2.5 mls/hr IV Q24H [facility] Rx#: [id number] Tube Feeding 400 / 400 477 / 477 GI Tube Flush 765 / 765 260 / 260 200 / 200 Output: Urine Catheter Amount 315 / 315 191 / 191 135 / 135 Void Amount 35 / 35 General appearance: no acute distress Exam: on mechanical ventilation ET tube in place nondistressed No telemetry events foleys draining clear urine Medical - PN: Obj Da - Labs CBC & Chem 7: 12/14/17 03:43 12/14/17 03:43 Labs: Abnormal Lab Results 12/14/17 12/14/17 12/13/17 03:43 03:43 03:41 RBC 2.65 L Hgb 8.6 L Hct 25.9 L RDW 14.8 H Gran % 86.7 H Lymph % (Auto) 6.6 L Lymph # (Auto) 0.6 L Sodium 150 H Chloride 110 H 116 H Carbon Dioxide 20 L 21 L BUN 43 H 46 H Creatinine 1.2 H Glucose 159 H 134 H Uric Acid Calcium 7.8 L 8.2 L Magnesium 2.7 H GGT 73 H 83 H AST ALT 47 H Total Protein 5.1 L 5.1 L Albumin 2.9 L 2.9 L Prealbumin Triglycerides 167 H 201 H 12/13/17 12/12/17 12/12/17 03:41 17:02 04:00 RBC 2.74 L Hgb 8.8 L Hct 26.6 L RDW 15.1 H Gran % 85.2 H Lymph % (Auto) 7.0 L Lymph # (Auto) 0.4 L Sodium 147 H Chloride 114 H Carbon Dioxide BUN 43 H Creatinine Glucose 120 H Uric Acid 8.2 H Calcium 8.1 L Magnesium 2.6 H GGT 85 H AST 48 H ALT 64 H Total Protein 5.0 L Albumin 2.7 L Prealbumin 19.2 L Triglycerides 158 H 12/12/17 04:00 RBC 2.74 L Hgb 9.0 L Hct 26.5 L RDW Gran % 81.2 H Lymph % (Auto) 9.2 L Lymph # (Auto) 0.5 L Sodium Chloride Carbon Dioxide BUN Creatinine Glucose Uric Acid Calcium Magnesium GGT AST ALT Total Protein Albumin Prealbumin Triglycerides Meds: Medications Acetaminophen (Tylenol) 650 mg PO Q6HP PRN PRN Reason: PAIN/FEVER > 101 Last Admin: 12/10/17 09:59 Dose: 650 mg Albuterol/Ipratropium (Duoneb) 3 ml NEB Q4HRT [facility] Last Admin: 12/14/17 06:59 Dose: 3 ml Cefepime HCl (Maxipime) 1 gm IV Q12H [facility] Last Admin: 12/14/17 07:57 Dose: 1 gm Chlorhexidine Gluconate (Peridex) 15 ml SWABMOUTH BID [facility] Last Admin: 12/14/17 07:59 Dose: 15 ml Clonidine HCl (Catapres) 0.1 mg PO Q4HP PRN PRN Reason: Alcohol Withdrawal Last Admin: 12/10/17 19:18 Dose: 0.1 mg Famotidine (Pepcid) 20 mg IV Q12 [facility] Last Admin: 12/14/17 07:57 Dose: 20 mg Furosemide (Lasix) 20 mg IV DAILY [facility] Last Admin: 12/14/17 08:46 Dose: 20 mg Furosemide (Lasix) 20 mg IV BID@1500,2100 [facility] Stop: 12/14/17 21:01 Heparin Sodium (Porcine) (Heparin) 5,000 unit SQ Q12 [facility] Last Admin: 12/14/17 07:57 Dose: 5,000 unit Heparin Sodium/Sodium Chloride (Heparin/Ns) 500 mls @ 0 mls/hr IV .Q0M [facility]; KVO PRN Reason: Protocol Sodium Chloride (Sodium Chloride 0.9%) 250 mls @ 20 mls/hr IV .[id number] [facility] Last Admin: 12/14/17 04:07 Dose: Not Given Lorazepam 50 mg/ Dextrose 100 mls @ 1.57 mls/hr IV Q12HP PRN; Protocol; 0.01 MG /KG/HR PRN Reason: ALCOHOL WITHDRAWAL/SEDATION Propofol 1,000 mg/ Premix 100 mls @ 2.35 mls/hr IV .Q24H [facility]; 5 MCG/KG/MIN PRN Reason: Protocol Last Titration: 12/14/17 10:21 Dose: 30 mcg/kg/min, 14.14 mls/hr Vancomycin HCl 1,000 mg/ (Dextrose) 250 mls @ 250 mls/hr IV Q24H [facility] Last Admin: 12/14/17 10:43 Dose: 250 mls/hr Fentanyl 2,500 mcg/ Dextrose 250 mls @ 2.5 mls/hr IV Q24H [facility]; 25 MCG/HR PRN Reason: Protocol Last Titration: 12/14/17 09:54 Dose: 75 mcg/hr, 7.5 mls/hr Iron Carb/Multivit/O'Brien/Folic Acid (Multivitamin W/Minerals) 1 tab PO DAILY [facility] Last Admin: 12/14/17 07:50 Dose: Not Given Lorazepam (Ativan) 0 mg IV Q4HP PRN; Protocol PRN Reason: Alcohol Withdrawal Last Admin: 12/13/17 04:48 Dose: 2 mg Methylprednisolone Sodium Succinate (Solu-Medrol) 62.5 mg IV DAILY [facility] Last Admin: 12/14/17 07:56 Dose: 62.5 mg Ondansetron HCl (Zofran) 4 mg IV Q6HP PRN PRN Reason: Nausea And Vomiting Sodium Chloride (Saline Flush) 10 ml IV Q8 [facility] Last Admin: 12/14/17 06:17 Dose: 10 ml Sodium Chloride (Saline Flush) 10 ml IV UD PRN PRN Reason: medication Thiamine HCl (Vitamin B1) 100 mg PO DAILY [facility] Last Admin: 12/14/17 07:50 Dose: Not Given Vancomycin HCl (Vancomycin Per Pharmacy) 1 order IV UD [facility] Medical - PN: A/P - Time Spent With Patient Total time spent is greater than 50% in coordination of care (as documented) at patient's floor/unit and/or counseling patient: Greater than 35 minutes - Narrative A/P Narrative: A/P * Hypoxic respiratory failure- AL I/early ARDS. on mechanical ventilation. Improving by the day. Possible extubation in a.m. * bilateral infiltrates/ARDS- no significant interval change in chest imaging. continue lung protective ventilation with diuresis , low tidal volume, high PEEP. * Health care associated Pneumonia- continue cefepime and vancomycin. * Severe sepsis - clinical resolution noted * Severe alcohol withdrawal with DT-clinically resolved. * nutrition on tube feeds per OG prior medical issues-home meds on hold * Hypertension * Peripheral Neuropathy * Hypothyroidism * Pulmonary fibrosis? noted on Chest X Ray * COPD? vs Reactive Air way disease * DVT prophylaxis on heparin Plan * plan extubation in a.m. * Aggressive diuresis to improve lung compliance * continue broad antibiotic coverage * improved prognosis
[2017-12-14] MEDS: FENTANYL IV SCH (13:19)
[2017-12-14] MEDS: WATER IV SCH (13:19)
[2017-12-14] MEDS: DEXTROSE 5% IV SCH (13:19)
[2017-12-15] MEDS: 0.9 % SODIUM CHLORIDE 250 ML IV SCH ×3 (00:16→12:48)
[2017-12-15] MEDS: CHLORHEXIDINE GLUCONATE 1 ML ORAL.SOL SWABMOUTH SCH ×3 (00:29→21:00)
[2017-12-15] MEDS: 0.9 % SODIUM CHLORIDE 10 ML SYRINGE IV SCH ×4 (00:29→23:06)
[2017-12-15] MEDS: IPRATROPIUM/ALBUTEROL 3 ML AMPUL.NEB NEB SCH ×6 (03:17→23:11)
[2017-12-15] MEDS: PROPOFOL 1,000 MG in PREMIX 1 BAG IV SCH ×4 (06:04→19:27)
[2017-12-15 06:19] LABS: Basophils # (Auto) 0 K/mcL (0.0-0.3); Basophils % (Auto) 0.1 % (0.0-2.0); Eosinophils # (Auto) 0.4 K/mcL (0.0-0.7); Eosinophils % (Auto) 3.4 % (0.0-7.0); Granulocytes % (Auto) 81.5 % (38.0-78.0); Lymphocytes # (Auto) 1.3 K/mcL (1.5-4.8); Lymphocytes % (Auto) 9.8 % (15.5-49.0); Mean Cell Volume 97.5 fL (80.0-100.0); Mean Corpuscular HGB Conc 33.2 g/dL (31.0-36.0); Mean Corpuscular Hemoglobin 32.3 pg (26.0-34.0); Monocytes # (Auto) 0.7 K/mcL (0.1-0.9); Monocytes % (Auto) 5.2 % (1.0-12.0); Platelet Count 315 K/mcL (140-440); RBC 3.15 M/mcL (4.00-5.20); Red Cell Distribution Width 15.1 % (11.5-14.5)
[2017-12-15 06:27] LABS: ALT/SGPT 34 U/l (0-40); Albumin/Globulin Ratio 1.3 (1.0-2.3); Alkaline Phosphatase 52 U/L (39-117); Bilirubin,Direct < 0.2 mg/dL (0.0-0.3); Blood Urea Nitrogen 50 mg/dl (8-23); Gamma Glutamyl Transpeptidase 82 U/L (5-36); Uric Acid 3.6 mg/dL (2.5-8.0)
--- NOTE | 2017-12-15 06:30 | XRay Report ---
INDICATION: Pneumonia TECHNIQUE: AP chest x-ray,portable semiupright COMPARISON: Previous examinations dated 12/13/2017, 12/12/2017, 12/11/2017, 12/09/2017 FINDINGS:No change in endotracheal tube, esophagogastric tube, or left central venous catheter. Bilateral diffuse pulmonary parenchymal infiltrates with bibasilar predominance. Probable bilateral pleural effusions. Infiltrates are improved since previous examinations. Continued follow-up recommended. Infiltrates remain consistent with pneumonia. ARDS or pulmonary edema remain possible. IMPRESSION: Improving bilateral pulmonary parenchymal infiltrates Interpreted and Authenticated by: Danny Mendoza 12/15/17
[2017-12-15] MEDS: THIAMINE 100 MG TABLET PO SCH (07:30)
[2017-12-15] MEDS: MULTIVIT,THER IRON,CA,FA & MIN 1 TABLET PO SCH (07:30)
[2017-12-15] MEDS: FAMOTIDINE/PF 20 MG/2 ML VIAL IV SCH ×2 (07:58→23:05)
[2017-12-15] MEDS: methylPREDNISolone SOD SUCC 125 MG/2 ML VIAL IV SCH (07:58)
[2017-12-15] MEDS: FUROSEMIDE 20 MG/2 ML VIAL IV SCH (07:58)
[2017-12-15] MEDS: VANCOMYCIN 1,000 MG in DEXTROSE 5% IN WATER 250 ML IV SCH (07:59)
[2017-12-15] MEDS: HEPARIN 5,000 UNIT/ML VIAL SQ SCH ×2 (07:59→21:05)
[2017-12-15] MEDS: CEFEPIME 1 GM VIAL IV SCH ×2 (08:00→21:00)
--- NOTE | 2017-12-15 08:33 | Internal Med Progress Note ---
Medical - PN: Subj Patient information: Note initiated : 12/15/17 at 8:31 am Service Date, if different from initiated Date: [] Patient: Sylvia Tucker 72 y/o F admitted on 12/08/17 for Weakness/Pneumonia, Sepsis. Chief Complaint: [] Interval history: According to the patient she was on a cruise in [place], where she fell sick, she was nose with pneumonia, and was treated by the physician on the cruise ship. She was given levofloxacin intravenously for 3 days and then continued oral levofloxacin for another 4-5 days. Patient notes that she had improved from this illness. On her way back on december this month she was starting to feel sick again, cough shortness of breath of exertion and some wheezing. Subjective sensation of fever and some chills. The patient's cough was associated with yellowish sputum, no blood in the sputum. The patient's breathing cough and weakness continued to get worse over the next few days and therefore the patient presented to the emergency room for further evaluation The patient denies any complaints, only sick contact is likely on the flight back. The patient has no headache, has chronic runny nose, no watery eyes no diplopia or changes in hearing, no difficulty in swallowing, has shortness of breath on exertion, has cough, she has no chest pain no palpitations. No nausea no vomiting no abdominal pain no bladder or bowel complaints. No joint pains denies any acute depression or anxiety. 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 No easy bruising or bleeding, She does have wheezing. in the emergency room the patient was afebrile, temperature 97.2, heart rate of 88, blood pressure 1 56 x 67, respiratory rate around 24-25, she was saturating 86% on room air, on presentation she was 76 or 78% on room air her oxygen saturation corrected with oxygen supplementation via nasal cannula. The patient was given Rocephin and Zithromax in the ED and presented for admission. The patient has a history of alcohol use, presently is drinking 1 drink 3 times a day with meals according to the . The patient obviously drank heavily on the cruise ship. The patient notes that they have set up a regime to help her cut back on the drinking december 09 Pt seen examined, off bipap this AM but needed later resp status stable, X ray shows kimmy pna improving on borad spectrum ABX high risk of withdrawal on wine with meals also ativan as needed microbiolgoy neg labs stable 12/10- patient critically ill. On BiPAP 14/8-55% FiO2. Severe respiratory distress. Active alcohol withdrawal requiring benzodiazepines protocol. at bedside. Patient arousable but remains high-risk aspiration. Would be a candidate for mechanical ventilation if continues to deteriorate. Continue close hemodynamic monitoring including electrolytes follow-up in light of active withdrawals. [place] score 21. Continue critical care management. white count uptrending at 12.2. Repeat chest x-ray in 24 hours. on broad antibiotic coverage including vancomycin/cefepime. recheck ABG 12/11- patient remains critically ill. Actively withdrawing and hallucinating ith psychomotor agitation requiring Versed/Ativan. Worsening bilateral infiltrates suggestive of ARDS. Large AA gradient with PaO2/FiO2 150. On 45% FiO2 BiPAP. Broad antibiotic coverage. white count 10.6. elevated LFTs. Multiple organ dysfunction. keep low threshold for transfer to tertiary Center. patient unable to hold BiPAP. Tachycardic and tachypneic at 35. Increase work of breathing. Impending respiratory failure. ARDS on chest imaging. Case discussed with patient's . Initiate mechanical ventilation for airway protection in light of worsening hypoxic respiratory failure and ongoing alcohol withdrawal. Central line placement 12/12-patient on mechanical ventilation. PEEP 8. FiO2 40%. Improving blood gas PaO2 of 240. plateau pressure 17. peak pressure 24 improved lung compliance. Continue gentle diuresis. ICU sedation on the diazepam/fentanyl. Active DT on benzodiazepines. Continue antibiotic coverage. Bilateral infiltrates on chest imaging service to above already ARDS/Ali however peak pressure/plateau satisfactory. echocardiogram preserved EF with moderate pulmonary hypertension. fluid balance net 2600. Continue diuresis. Patient remains critically ill 12/13-Patient on mechanical ventilation. 40% FiO2. Blood gas 7.49/34/76 on 50% FiO2 improving to 7.4/35/122 on 40% FiO2. No overnight events. On propofol/ medazepam. DTs improved with no active seizures. Improving and stabilizing hemodynamics.lani count 6.2. emoglobin 8.8. sodium uptrending from 142-147-150 in 48 hours. Start free water replacement and switched all IV fluids to D5W. repeat BMP 6 PM. creatinine 1.2. Sputum culture Carrie . continue mechanical ventilation and start sedation holiday a.m.. Repeat chest imaging reveals diffuse pulmonary parenchymal infiltrates with bibasilar consolidation. Continue broad-spectrum antibiotics. patient remains critically ill 12/14-patient on mechanical ventilation. Continue ICU sedation on propofol/ fentanyl. DC Versed. No further active DTs or withdrawal symptoms. Patient successfully passed sedation holiday this morning without any significant psychomotor agitation or tachycardia. Good urine output. Hemodynamics stable. On 30% FiO2 tidal volume 450 AC 14 and low plateau pressures. Sodium down to 143 with free water replacement. Start aggressive diuresis to improve lung compliance. Possible extubation in 24 hours.hemoglobin down to 8.6 from peak of 12.6. Patient's at bedside. Discussed treatment plan. 12/15 Pt seen examined, no acute overnight events, pt was off sedation vacation yesterday, but Nursing reported ongoing withdrawal. Vent settings: TV 450, RR 16, Fio2 35, PEEP 5, PAP 20, PLplat 12 Chest X ray IMPRESSION: Improving bilateral pulmonary parenchymal infiltrates Sedation was held admitting trial given. Patient tolerated the weaning protocol well however was very hypertensive on withdrawal of sedation was not able to follow commands very well and therefore extubation was held. We will free try tomorrow morning continue antibiotics for now Pertinent ROS: unable - Constitutional Vitals: Vital Signs Temp Pulse Resp BP Pulse Ox 98.1 F 74 16 144/62 99 12/15/17 07:01 12/15/17 07:05 12/15/17 07:05 12/15/17 07:01 12/15/17 07:01 Period Temp Pulse Resp BP Sys/Esqueda Pulse Ox Last 24 Hr 96.8 F-98.8 F 59-86 10-22 116-189/56-98 93-100 Intake and Output 12/14/17 12/15/17 12/15/17 21:59 05:59 13:59 Intake Total 1196 / 1196 813 / 813 Output Total 1320 / 1320 1420 / 1420 80 / 80 Balance -124 / -124 -607 / -607 -80 / -80 Weight 175 lb Intake & Output: Intake & Output 12/14/17 12/15/17 12/15/17 21:59 05:59 13:59 Intake Total 1196 / 1196 813 / 813 Output Total 1320 / 1320 1420 / 1420 80 / 80 Balance -124 / -124 -607 / -607 -80 / -80 Weight 175 lb Intake: IV 332 / 332 163 / 163 Sodium Chloride 0.9% 250 ml @ 63 / 63 20 mls/hr IV .[id number] KENDRA Rx#: [id number] Diprivan 1,000 mg In Premix 1 82 / 82 100 / 100 Bag @ 5 MCG/KG/MIN 2.35 mls/hr IV .Q24H KENDRA Rx#:[id number] Vancomycin 1,000 mg In Dextrose 250 / 250 5% in Water 250 ml @ 250 mls/ hr IV Q24H KENDRA Rx#:[id number] Tube Feeding 464 / 464 610 / 610 GI Tube Flush 400 / 400 40 / 40 Output: Urine Catheter Amount 1320 / 1320 1420 / 1420 80 / 80 Other: Stool Size Moderate Stool Color Brown Green Stool Consistency Liquid # of times incontinent of 1 Bowels Exam: Constitutional; Afebrile, sedated currently on mechanical ventilation Eyes- No icterus, , No periorbital swelling Ears- Ext ear normal, Neck- Midline trachea, supple, ET tube in place Respiratory system: Air Entry equal on both sides, No crackles or wheezing, no rhonchi. CVS- Rate rhythm regular, S1,S2 heard, no gallop, no rub. Abdomen- Soft nontender abdomen, no organomegaly, no tenderness, no guarding or rigidity, PLANNING LEAD- AOOx0, moving all extremities, no gross focal deficit noted. Patient moving all 4 extremities however not able to follow commands when the patient is off sedation Medical - PN: Obj Da - Labs CBC & Chem 7: 12/15/17 03:42 12/15/17 03:42 Labs: Abnormal Lab Results 12/15/17 12/15/17 12/14/17 03:42 03:42 03:43 WBC 12.8 H RBC 3.15 L Hgb 10.2 L Hct 30.7 L RDW 15.1 H Gran % 81.5 H Lymph % (Auto) 9.8 L Gran # 10.4 H Lymph # (Auto) 1.3 L Sodium Chloride 110 H Carbon Dioxide 20 L BUN 50 H 43 H Creatinine Glucose 159 H Calcium 8.0 L 7.8 L Magnesium GGT 82 H 73 H ALT Lactate Dehydrogenase 254 H Total Protein 5.4 L 5.1 L Albumin 3.0 L 2.9 L Prealbumin Triglycerides 203 H 167 H 12/14/17 12/13/17 12/13/17 03:43 03:41 03:41 WBC RBC 2.65 L 2.74 L Hgb 8.6 L 8.8 L Hct 25.9 L 26.6 L RDW 14.8 H 15.1 H Gran % 86.7 H 85.2 H Lymph % (Auto) 6.6 L 7.0 L Gran # Lymph # (Auto) 0.6 L 0.4 L Sodium 150 H Chloride 116 H Carbon Dioxide 21 L BUN 46 H Creatinine 1.2 H Glucose 134 H Calcium 8.2 L Magnesium 2.7 H GGT 83 H ALT 47 H Lactate Dehydrogenase Total Protein 5.1 L Albumin 2.9 L Prealbumin Triglycerides 201 H 12/12/17 17:02 WBC RBC Hgb Hct RDW Gran % Lymph % (Auto) Gran # Lymph # (Auto) Sodium Chloride Carbon Dioxide BUN Creatinine Glucose Calcium Magnesium GGT ALT Lactate Dehydrogenase Total Protein Albumin Prealbumin 19.2 L Triglycerides Meds: Medications Acetaminophen (Tylenol) 650 mg PO Q6HP PRN PRN Reason: PAIN/FEVER > 101 Last Admin: 12/10/17 09:59 Dose: 650 mg Albuterol/Ipratropium (Duoneb) 3 ml NEB Q4HRT [facility] Last Admin: 12/15/17 07:06 Dose: 3 ml Cefepime HCl (Maxipime) 1 gm IV Q12H [facility] Last Admin: 12/15/17 08:00 Dose: 1 gm Chlorhexidine Gluconate (Peridex) 15 ml SWABMOUTH BID [facility] Last Admin: 12/15/17 07:54 Dose: 15 ml Clonidine HCl (Catapres) 0.1 mg PO Q4HP PRN PRN Reason: Alcohol Withdrawal Last Admin: 12/10/17 19:18 Dose: 0.1 mg Famotidine (Pepcid) 20 mg IV Q12 [facility] Last Admin: 12/15/17 07:58 Dose: 20 mg Furosemide (Lasix) 20 mg IV DAILY [facility] Last Admin: 12/15/17 07:58 Dose: 20 mg Heparin Sodium (Porcine) (Heparin) 5,000 unit SQ Q12 [facility] Last Admin: 12/15/17 07:59 Dose: 5,000 unit Heparin Sodium/Sodium Chloride (Heparin/Ns) 500 mls @ 0 mls/hr IV .Q0M KENDRA; KVO PRN Reason: Protocol Sodium Chloride (Sodium Chloride 0.9%) 250 mls @ 20 mls/hr IV .[id number] [facility] Last Admin: 12/15/17 03:25 Dose: 20 mls/hr Lorazepam 50 mg/ Dextrose 100 mls @ 1.57 mls/hr IV Q12HP PRN; Protocol; 0.01 MG /KG/HR PRN Reason: ALCOHOL WITHDRAWAL/SEDATION Propofol 1,000 mg/ Premix 100 mls @ 2.35 mls/hr IV .Q24H KENDRA; 5 MCG/KG/MIN PRN Reason: Protocol Last Admin: 12/15/17 06:04 Dose: 30 mcg/kg/min, 14.14 mls/hr Vancomycin HCl 1,000 mg/ (Dextrose) 250 mls @ 250 mls/hr IV Q24H [facility] Last Admin: 12/15/17 07:59 Dose: 250 mls/hr Fentanyl 2,500 mcg/ Dextrose 250 mls @ 2.5 mls/hr IV Q24H [facility]; 25 MCG/HR PRN Reason: Protocol Last Admin: 12/14/17 13:19 Dose: 75 mcg/hr, 7.5 mls/hr Iron Carb/Multivit/[place]/Folic Acid (Multivitamin W/Minerals) 1 tab PO DAILY [facility] Last Admin: 12/15/17 07:30 Dose: Not Given Lorazepam (Ativan) 0 mg IV Q4HP PRN; Protocol PRN Reason: Alcohol Withdrawal Last Admin: 12/13/17 04:48 Dose: 2 mg Methylprednisolone Sodium Succinate (Solu-Medrol) 62.5 mg IV DAILY [facility] Last Admin: 12/15/17 07:58 Dose: 62.5 mg Ondansetron HCl (Zofran) 4 mg IV Q6HP PRN PRN Reason: Nausea And Vomiting Sodium Chloride (Saline Flush) 10 ml IV Q8 [facility] Last Admin: 12/15/17 05:48 Dose: 10 ml Sodium Chloride (Saline Flush) 10 ml IV UD PRN PRN Reason: medication Thiamine HCl (Vitamin B1) 100 mg PO DAILY [facility] Last Admin: 12/15/17 07:30 Dose: Not Given Vancomycin HCl (Vancomycin Per Pharmacy) 1 order IV UD [facility] Medical - PN: A/P - Time Spent With Patient Total time spent is greater than 50% in coordination of care (as documented) at patient's floor/unit and/or counseling patient: - Narrative A/P Narrative: A/P Acute hypoxic respiratory failure Bilateral Pneumonia Health care associated pneumonia Severe sepsis SEvere alcohol withdrawal Hypertension Peripheral neuropathy Hypothyroidism H/o PUlmonary fibrosis? Chronic obstructive pulmonary disease vs Reactive airway disease Plan Continue respiratory support by mech ventilation IV antibioitics to continue Sedation with propol, continue feeds Try exutabation again in AM On thaimine continue same continue steroids ABG/ chest xt ay reviewed DVT hep sq full code Diet via NG tube spent > 50 mins rendering critical care for this patient, abg, x ray chest, vent management, counselling of family
[2017-12-15] MEDS: LORazepam 2 MG/ML VIAL IV PRN (10:50)
[2017-12-15] MEDS: WATER IV SCH (12:48)
[2017-12-15] MEDS: DEXTROSE 5% IV SCH (12:48)
[2017-12-15] MEDS: FENTANYL IV SCH (12:48)
[2017-12-16] MEDS: 0.9 % SODIUM CHLORIDE 250 ML IV SCH ×2 (00:09→04:09)
[2017-12-16] MEDS: PROPOFOL 1,000 MG in PREMIX 1 BAG IV SCH ×2 (02:52→11:16)
[2017-12-16] MEDS: IPRATROPIUM/ALBUTEROL 3 ML AMPUL.NEB NEB SCH ×3 (02:55→11:15)
[2017-12-16] MEDS: 0.9 % SODIUM CHLORIDE 10 ML SYRINGE IV SCH (05:28)
[2017-12-16 05:46] LABS: Basophils # (Auto) 0 K/mcL (0.0-0.3); Basophils % (Auto) 0.1 % (0.0-2.0); Eosinophils # (Auto) 0.4 K/mcL (0.0-0.7); Eosinophils % (Auto) 2.6 % (0.0-7.0); Granulocytes % (Auto) 84.3 % (38.0-78.0); Lymphocytes # (Auto) 1.1 K/mcL (1.5-4.8); Lymphocytes % (Auto) 6.5 % (15.5-49.0); Mean Cell Volume 98.6 fL (80.0-100.0); Mean Corpuscular Hemoglobin 32.5 pg (26.0-34.0); Monocytes # (Auto) 1.1 K/mcL (0.1-0.9); Monocytes % (Auto) 6.5 % (1.0-12.0); Platelet Count 370 K/mcL (140-440); RBC 3.65 M/mcL (4.00-5.20); Red Cell Distribution Width 15.6 % (11.5-14.5)
[2017-12-16 05:59] LABS: ALT/SGPT 43 U/l (0-40); Albumin/Globulin Ratio 1.3 (1.0-2.3); Alkaline Phosphatase 49 U/L (39-117); Bilirubin,Direct < 0.2 mg/dL (0.0-0.3); Blood Urea Nitrogen 49 mg/dl (8-23); Gamma Glutamyl Transpeptidase 94 U/L (5-36); Uric Acid 3.6 mg/dL (2.5-8.0)
--- NOTE | 2017-12-16 06:22 | XRay Report ---
INDICATION: Ventilator management. Sepsis. Weakness. TECHNIQUE: AP chest x-ray,portable semiupright COMPARISON: 12/15/2017, 12/14/2017, 12/13/2017, 12/13/2017, 12/12/2017 FINDINGS:No change in endotracheal tube position. Left central venous catheter and esophagogastric tube are unchanged. There are bilateral pulmonary parenchymal infiltrates and probable bilateral pleural effusions. Findings are essentially unchanged since 12/15/2017 but slightly improved since 12/14/2017 and 12/13/2017. No new abnormalities. Continued follow-up recommended. IMPRESSION: No definite interval change since 12/15/2017 Interpreted and Authenticated by: Danny Mendoza 12/16/17
[2017-12-16] MEDS ORDERED: METOPROLOL TARTRATE 5 MG/5 ML VIAL IV ONE (07:50)
[2017-12-16] MEDS ORDERED: cloNIDine HCL 0.1 MG TABLET PT SCH ×2 (08:00→09:00)
[2017-12-16] MEDS: METOPROLOL TARTRATE 5 MG/5 ML VIAL IV SCH ×3 (08:00→08:10)
[2017-12-16] MEDS ORDERED: DILTIAZEM 25 MG/5 ML VIAL IV ONE ×2 (08:22→11:21)
[2017-12-16] MEDS: MULTIVIT,THER IRON,CA,FA & MIN 1 TABLET PO SCH (08:47)
[2017-12-16] MEDS: VANCOMYCIN 1,000 MG in DEXTROSE 5% IN WATER 250 ML IV SCH (08:49)
[2017-12-16] MEDS: CHLORHEXIDINE GLUCONATE 1 ML ORAL.SOL SWABMOUTH SCH (09:31)
[2017-12-16] MEDS: HEPARIN 5,000 UNIT/ML VIAL SQ SCH (09:31)
[2017-12-16] MEDS: FUROSEMIDE 20 MG/2 ML VIAL IV SCH (09:32)
[2017-12-16] MEDS: methylPREDNISolone SOD SUCC 125 MG/2 ML VIAL IV SCH (09:34)
[2017-12-16] MEDS: FAMOTIDINE/PF 20 MG/2 ML VIAL IV SCH (09:34)
[2017-12-16] MEDS: THIAMINE 100 MG TABLET PO SCH (09:35)
[2017-12-16] MEDS: CEFEPIME 1 GM VIAL IV SCH (09:35)
[2017-12-16] MEDS ORDERED: metroNIDAZOLE 500 MG/100 ML BAG IV SCH (10:00)
--- NOTE | 2017-12-16 11:07 | Cat Scan Report ---
CLINICAL INFORMATION: Altered mental status COMPARISON: Most recent previous brain CT scan dated 01/26/2017 TECHNIQUE: Axial noncontrast-enhanced images through the brain. FINDINGS: No acute intracranial hemorrhage. No intra-axial hematoma. No focal intra-axial attenuation abnormality or localized mass effect. There is ventriculomegaly. This is unchanged since previous examination. No significant interval ventricular enlargement. Brainstem and cerebellum are negative. No focal abnormality. No extra-axial, intracranial abnormality. No subdural hematoma. No subarachnoid hemorrhage. No calvarial lesions. No lytic lesion. No fracture. There is mild soft tissue density within left mastoid air cells consistent with inflammatory disease. There is an air-fluid level within the right maxillary sinus. There is fluid within sphenoid sinuses and frontal sinuses and mucosal thickening in the ethmoid sinuses . Patient is intubated IMPRESSION: 1. No acute intracranial abnormality. No interval change since 01/26/2017. 2. Ventriculomegaly. No focal intra-axial attenuation abnormality. No intracranial hemorrhage 3. Sinus disease. This is probably related to intubation The exam was performed using radiation dose optimization techniques including, but not limited to, automated exposure control, adjustment of the mA and/or kV according to patient size and use of iterative reconstruction technique. Interpreted and Authenticated by: Danny Mendoza 12/16/17
--- NOTE | 2017-12-16 11:33 | Transfer Summary ---
Transfer Discharge Sum: Prov Patient information: Note initiated : 12/16/17 at 11:25 am Service Date, if different from initiated Date: [] Patient: Sylvia Tucker 72 y/o F admitted on 12/08/17 for Weakness/Pneumonia, Sepsis. Chief Complaint: [] Date of admission: 12/08/17 11:41 Discharge Date: 12/16/17 Primary care physician: Mini Man Admitting clinician: Jw Gore Consults: 12/08/17 09:44 Consult to Physician [CONS] Stat Comment: Consulting Provider: Jw Gore Reason For Exam: Physician to Consult Discharging clinician: Jw Gore Receiving physician/facility: Dr Kelly. [facility] Transfer Discharge Sum: Med - Medications Active and Home Medications: Home Medications Atenolol [Tenormin] 100 mg PO QDAY 09/08/15 [History Confirmed 12/08/17] Omeprazole [Prilosec] 20 mg PO ACB 09/08/15 [History Confirmed 12/08/17] Ascorbic Acid [Vitamin C] 1,000 mg PO DAILY 01/26/17 [History Confirmed 12/08/17 ] Calcium Carbonate/Vitamin D3 [Calcium 600 + Vit D Tablet] 600 mg PO DAILY [History Confirmed 12/08/17] Furosemide [Lasix] 20 mg PO DAILY 01/26/17 [History Confirmed 12/08/17] Gabapentin 600 mg PO TID 01/26/17 [History Confirmed 12/08/17] Levothyroxine [Synthroid] 88 mcg PO QAMAC 01/26/17 [History Confirmed 12/08/17] Multivitamin [One Daily Essential] 1 each PO DAILY 01/26/17 [History Confirmed 12/08/17] Vitamin B Complex 1 cap PO DAILY 01/26/17 [History Confirmed 12/08/17] Triazolam [Halcion] 0.5 mg PO HS 01/29/17 [History Confirmed 12/08/17] alpha lipoic acid 300 mg capsule 600 mg PO QDAY cap 08/10/17 [History Confirmed 12/08/17] coenzyme Q10 200 mg capsule 200 mg PO QDAY 08/10/17 [History Confirmed 12/08/17] duloxetine 60 mg capsule,delayed release 60 mg PO QDAY 08/10/17 [History Confirmed 12/08/17] estradiol 0.5 mg tablet See Label Instructions PO .2XW tab 08/10/17 [History Confirmed 12/08/17] ipratropium bromide 42 mcg (0.06 %) nasal spray 1 spray INTRANASAL TID PRN ml 08/10/17 [History Confirmed 12/08/17] methylsulfonylmethane 1,000 mg capsule See Label Instructions PO QDAY cap 08/10 [History Confirmed 12/08/17] ondansetron HCl 4 mg tablet 4 mg PO Q4H PRN 08/10/17 [History Confirmed 12/08/17 ] vitamin E 400 unit capsule 400 unit PO QDAY 08/10/17 [History Confirmed 12/08/17 ] E2/E3- 20/80 1mg/gm 0.5 g TOPICAL DIRECTED #60 g 08/16/17 [Rx Confirmed 12/08] Active Medications Acetaminophen (Tylenol) 650 mg PO Q6HP PRN PRN Reason: PAIN/FEVER > 101 Last Admin: 12/10/17 09:59 Dose: 650 mg Albuterol/Ipratropium (Duoneb) 3 ml NEB Q4HRT [facility] Last Admin: 12/16/17 11:15 Dose: Not Given Cefepime HCl (Maxipime) 1 gm IV Q12H [facility] Last Admin: 12/16/17 09:35 Dose: 1 gm Chlorhexidine Gluconate (Peridex) 15 ml SWABMOUTH BID [facility] Last Admin: 12/16/17 09:31 Dose: 15 ml Diltiazem HCl (Cardizem) 10 mg IV ONCE ONE Stop: 12/16/17 11:22 Famotidine (Pepcid) 20 mg IV Q12 [facility] Last Admin: 12/16/17 09:34 Dose: 20 mg Heparin Sodium (Porcine) (Heparin) 5,000 unit SQ Q12 [facility] Last Admin: 12/16/17 09:31 Dose: 5,000 unit Heparin Sodium/Sodium Chloride (Heparin/Ns) 500 mls @ 0 mls/hr IV .Q0M [facility]; KVO PRN Reason: Protocol Sodium Chloride (Sodium Chloride 0.9%) 250 mls @ 20 mls/hr IV .[id number] [facility] Last Infusion: 12/16/17 07:50 Dose: 20 mls/hr Lorazepam 50 mg/ Dextrose 100 mls @ 1.57 mls/hr IV Q12HP PRN; Protocol; 0.01 MG /KG/HR PRN Reason: ALCOHOL WITHDRAWAL/SEDATION Propofol 1,000 mg/ Premix 100 mls @ 2.35 mls/hr IV .Q24H [facility]; 5 MCG/KG/MIN PRN Reason: Protocol Last Admin: 12/16/17 11:16 Dose: 15 mcg/kg/min, 7.07 mls/hr Vancomycin HCl 1,000 mg/ (Dextrose) 250 mls @ 250 mls/hr IV Q24H [facility] Last Admin: 12/16/17 08:49 Dose: 250 mls/hr Fentanyl 2,500 mcg/ Dextrose 250 mls @ 2.5 mls/hr IV Q24H [facility]; 25 MCG/HR PRN Reason: Protocol Last Titration: 12/16/17 07:50 Dose: 20 mcg/hr, 2 mls/hr Metronidazole (Flagyl) 500 mg in 100 mls @ 100 mls/hr IV Q8H [facility] Last Admin: 12/16/17 09:56 Dose: 100 mls/hr Iron Carb/Multivit/[place]/Folic Acid (Multivitamin W/Minerals) 1 tab PO DAILY [facility] Last Admin: 12/16/17 08:47 Dose: Not Given Lorazepam (Ativan) 0 mg IV Q4HP PRN; Protocol PRN Reason: Alcohol Withdrawal Last Admin: 12/15/17 10:50 Dose: 2 mg Methylprednisolone Sodium Succinate (Solu-Medrol) 62.5 mg IV DAILY [facility] Last Admin: 12/16/17 09:34 Dose: 62.5 mg Ondansetron HCl (Zofran) 4 mg IV Q6HP PRN PRN Reason: Nausea And Vomiting Sodium Chloride (Saline Flush) 10 ml IV Q8 [facility] Last Admin: 12/16/17 05:28 Dose: 10 ml Sodium Chloride (Saline Flush) 10 ml IV UD PRN PRN Reason: medication Thiamine HCl (Vitamin B1) 100 mg PO DAILY [facility] Last Admin: 12/16/17 09:35 Dose: Not Given Vancomycin HCl (Vancomycin Per Pharmacy) 1 order IV UD [facility] Transfer Discharge Sum: Hosp Hospital course: This is a 72 yr female with h/o etoh use, According to the patient she was on a cruise in [place], where she fell sick, she was nose with pneumonia, and was treated by the physician on the cruise ship. She was given levofloxacin intravenously for 3 days and then continued oral levofloxacin for another 4-5 days. Patient notes that she had improved from this illness. On her way back on december this month she was starting to feel sick again, cough shortness of breath of exertion and some wheezing. Subjective sensation of fever and some chills. The patient's cough was associated with yellowish sputum , no blood in the sputum. The patient's breathing cough and weakness continued to get worse over the next few days and therefore the patient presented to the emergency room for further evaluation The patient denies any complaints, only sick contact is likely on the flight back. The patient has no headache, has chronic runny nose, no watery eyes no diplopia or changes in hearing, no difficulty in swallowing, has shortness of breath on exertion, has cough, she has no chest pain no palpitations. No nausea no vomiting no abdominal pain no bladder or bowel complaints. No joint pains denies any acute depression or anxiety. 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 No easy bruising or bleeding, She does have wheezing. in the emergency room the patient was afebrile, temperature 97.2, heart rate of 88, blood pressure 1 56 x 67, respiratory rate around 24-25, she was saturating 86% on room air, on presentation she was 76 or 78% on room air her oxygen saturation corrected with oxygen supplementation via nasal cannula. The patient was given Rocephin and Zithromax in the ED and presented for admission. The patient has a history of alcohol use, presently is drinking 1 drink 3 times a day with meals according to the . The patient obviously drank heavily on the cruise ship. The patient notes that they have set up a regime to help her cut back on the drinking december 09 Pt seen examined, off bipap this AM but needed later resp status stable, X ray shows kimmy pna improving on borad spectrum ABX high risk of withdrawal on wine with meals also ativan as needed microbiolgoy neg labs stable 12/10- patient critically ill. On BiPAP 14/8-55% FiO2. Severe respiratory distress. Active alcohol withdrawal requiring benzodiazepines protocol. at bedside. Patient arousable but remains high-risk aspiration. Would be a candidate for mechanical ventilation if continues to deteriorate. Continue close hemodynamic monitoring including electrolytes follow-up in light of active withdrawals. Woodson score 21. Continue critical care management. white count up trending at 12.2. Repeat chest x-ray in 24 hours. on broad antibiotic coverage including vancomycin/cefepime. recheck ABG 12/11- patient remains critically ill. Actively withdrawing and hallucinating with psychomotor agitation requiring Versed/Ativan. Worsening bilateral infiltrates suggestive of ARDS. Large AA gradient with PaO2/FiO2 150. On 45% FiO2 BiPAP. Broad antibiotic coverage. white count 10.6. elevated LFTs. Multiple organ dysfunction. keep low threshold for transfer to tertiary Center. patient unable to hold BiPAP. Tachycardic and tachypneic at 35. Increase work of breathing. Impending respiratory failure. ARDS on chest imaging. Case discussed with patient's . Initiate mechanical ventilation for airway protection in light of worsening hypoxic respiratory failure and ongoing alcohol withdrawal. Central line placement 12/12-patient on mechanical ventilation. PEEP 8. FiO2 40%. Improving blood gas PaO2 of 240. plateau pressure 17. peak pressure 24 improved lung compliance. Continue gentle diuresis. ICU sedation on the diazepam/fentanyl. Active DT on benzodiazepines. Continue antibiotic coverage. Bilateral infiltrates on chest imaging service to above already ARDS/Ali however peak pressure/plateau satisfactory. echocardiogram preserved EF with moderate pulmonary hypertension. fluid balance net 2600. Continue diuresis. Patient remains critically ill 12/13-Patient on mechanical ventilation. 40% FiO2. Blood gas 7.49/34/76 on 50% FiO2 improving to 7.4/35/122 on 40% FiO2. No overnight events. On propofol/ medazepam. DTs improved with no active seizures. Improving and stabilizing hemodynamics white count 6.2. hemoglobin 8.8. sodium up trending from 142-147- 150 in 48 hours. Start free water replacement and switched all IV fluids to D5W. repeat BMP 6 PM. creatinine 1.2. Sputum culture Carrie . continue mechanical ventilation and start sedation holiday a.m.. Repeat chest imaging reveals diffuse pulmonary parenchymal infiltrates with bibasilar consolidation. Continue broad-spectrum antibiotics. patient remains critically ill 12/14-patient on mechanical ventilation. Continue ICU sedation on propofol/ fentanyl. DC Versed. No further active DTs or withdrawal symptoms. Patient successfully passed sedation holiday this morning without any significant psychomotor agitation or tachycardia. Good urine output. Hemodynamics stable. On 30% FiO2 tidal volume 450 AC 14 and low plateau pressures. Sodium down to 143 with free water replacement. Start aggressive diuresis to improve lung compliance. Possible extubation in 24 hours.hemoglobin down to 8.6 from peak of 12.6. Patient's at bedside. Discussed treatment plan. 12/15 Pt seen examined, no acute overnight events, pt was off sedation vacation yesterday, but Nursing reported ongoing withdrawal. Vent settings: TV 450, RR 16, Fio2 35, PEEP 5, PAP 20, Pplat 12 Chest X ray IMPRESSION: Improving bilateral pulmonary parenchymal infiltrates Sedation was held admitting trial given. Patient tolerated the weaning protocol well however was very hypertensive on withdrawal of sedation was not able to follow commands very well and therefore extubation was held. We will free try tomorrow morning continue antibiotics for now 12/15 The patient was seen examined, this AM was calm, but when took off her sedation for weaning trial the patient became agitated and confused, she became tachycardic with Afib with rvr, she had hypertension. She was not able to follow any commands. patient labs show worsening leucocytosis, had > 10 percent bands on the cbc, and had one episode of diarrhea Patient was started on IV flagyl and we waiting for any new bowel movement to send for possible Cdiff which might explain the worsening leucocytosis. She was given some metoprolol this AM 5mg x 3 and cardizem to help with HR. Patient EKG done which showed new t wave inversion on the ant lateral leads, Trop was 0.09. Given that the patient is been on ventilator for 5 days now, and the lack of critical care support, worsening leucocytosis and new possible cardiac issue. Patient was presented to [facility] for possible transfer and was graciously accepted by Dr Kelly Head CT Was done which was reported as negative for acute stroke or Intracereberllar hemorrhage. Her Vent settings this AM is TV 450, RR 16, PEEP 5, Fio2 40, Peak pressure 22, ABG on these settings: Ph 7.44/PCo2 34/ PO2 71, Lactate 1.7 - Time Spent with Patient Total time spent providing and/or coordinating transfer services: Greater than 30 minutes Transfer Discharge Sum: Exam - Constitutional Vitals: Vital Signs Temp Pulse Pulse Resp Resp BP Pulse Ox 12/16/17 11:16 17 12/16/17 10:21 16 102/72 98 03/16/18 10:16 16 115/76 97 03/16/18 10:11 16 129/80 98 03/16/18 10:06 17 116/67 98 03/16/18 10:01 16 121/76 98 /16/18 09:56 16 131/77 97 03/16/18 09:51 16 136/83 97 03/16/18 09:46 16 133/78 97 /16/18 09:41 16 134/73 96 03/16/18 09:36 16 137/67 96 /16/18 09:31 16 129/69 95 03/16/18 09:26 16 115/62 94 03/16/18 09:21 16 106/70 94 16/18 09:16 16 92/53 94 16/18 09:11 16 92/53 94 16/18 09:06 16 93/57 93 16/18 09:01 16 102/67 93 /16/18 08:56 16 90/56 92 16/18 08:51 16 107/60 91 16/18 08:46 17 90/57 91 16/18 08:41 16 90/76 90 /16/18 08:36 16 141/121 93 /16/18 08:30 16 127/96 94 16/18 08:23 15 118/86 95 16/18 08:16 16 104/69 93 /16/18 08:01 97.4 F 10 L 176/119 16/18 07:46 17 195/94 96 16/18 07:31 19 191/84 98 16/18 07:29 95 16/18 07:26 98 H 13 16/18 07:22 20 /16/18 07:16 16 170/73 96 /16/18 07:01 15 174/73 95 16/18 06:46 16 185/90 97 16/18 06:31 22 172/79 99 16/18 06:30 17 100 16/18 06:16 15 161/82 98 16/18 06:01 16 170/107 96 16/18 06:00 96 16/18 05:21 16 94 16/18 05:01 16 137/60 96 03/16/18 05:00 16 12/16/17 04:01 98.2 F 16 164/73 95 18 03:04 16 95 18 03:01 16 141/62 95 18 03:00 16 18 02:01 16 111/62 98 12/16/17 02:00 16 111/62 98 12/16/17 01:15 16 97 12/16/17 01:01 16 158/77 99 12/16/17 01:00 16 12/16/17 00:16 16 98 12/16/17 00:01 98.3 F 15 144/71 97 12/15/17 23:16 78 16 16 12/15/17 23:01 16 158/69 97 12/15/17 23:00 16 96 12/15/17 22:08 16 99 12/15/17 22:01 16 163/86 98 12/15/17 21:47 16 98 12/15/17 21:01 16 129/71 96 12/15/17 20:04 16 96 12/15/17 20:01 97.8 F 16 162/82 96 12/15/17 20:00 16 12/15/17 19:34 16 98 12/15/17 19:22 85 17 16 12/15/17 19:01 23 H 145/86 100 12/15/17 18:01 16 108/65 98 12/15/17 17:01 97.1 F 16 110/63 97 12/15/17 16:01 97.0 F 16 127/81 97 18 15:27 96 H 16 16 12/15/17 15:01 16 106/62 95 12/15/17 14:01 16 169/80 98 12/15/17 14:00 78 16 95 12/15/17 13:01 16 109/65 93 12/15/17 12:01 97.4 F 16 129/70 89 L Pulse Ox 12/16/17 11:16 94 12/16/17 10:21 12/16/17 10:16 12/16/17 10:11 12/16/17 10:06 12/16/17 10:01 12/16/17 09:56 12/16/17 09:51 12/16/17 09:46 12/16/17 09:41 12/16/17 09:36 12/16/17 09:31 12/16/17 09:26 12/16/17 09:21 12/16/17 09:16 12/16/17 09:11 12/16/17 09:06 12/16/17 09:01 12/16/17 08:56 12/16/17 08:51 12/16/17 08:46 12/16/17 08:41 12/16/17 08:36 12/16/17 08:30 12/16/17 08:23 12/16/17 08:16 12/16/17 08:01 12/16/17 07:46 12/16/17 07:31 12/16/17 07:29 12/16/17 07:26 12/16/17 07:22 95 12/16/17 07:16 12/16/17 07:01 12/16/17 06:46 12/16/17 06:31 12/16/17 06:30 12/16/17 06:16 12/16/17 06:01 12/16/17 06:00 12/16/17 05:21 12/16/17 05:01 12/16/17 05:00 95 12/16/17 04:01 12/16/17 03:04 12/16/17 03:01 12/16/17 03:00 95 12/16/17 02:01 12/16/17 02:00 12/16/17 01:15 12/16/17 01:01 12/16/17 01:00 99 12/16/17 00:16 12/16/17 00:01 12/15/17 23:16 97 12/15/17 23:01 12/15/17 23:00 12/15/17 22:08 12/15/17 22:01 12/15/17 21:47 12/15/17 21:01 12/15/17 20:04 12/15/17 20:01 12/15/17 20:00 12/15/17 19:34 12/15/17 19:22 99 12/15/17 19:01 12/15/17 18:01 12/15/17 17:01 12/15/17 16:01 12/15/17 15:27 96 12/15/17 15:01 12/15/17 14:01 12/15/17 14:00 12/15/17 13:01 12/15/17 12:01 Intake and Output 12/15/17 12/16/17 12/16/17 21:59 05:59 13:59 Intake Total 908 / 908 1119 / 1119 248 / 248 Output Total 455 / 455 280 / 280 237 / 237 Balance 453 / 453 839 / 839 11 / Intake: IV 82 / 82 451 / 451 248 / 248 Sodium Chloride 0.9% 250 ml @ 227 / 227 154 / 154 20 mls/hr IV .[id number] [facility] Rx#: [id number] Diprivan 1,000 mg In Premix 1 82 / 82 100 / 100 94 / 94 Bag @ 5 MCG/KG/MIN 2.35 mls/hr IV .Q24H [facility] Rx#:[id number] fentaNYL 2,500 MCG In Dextrose 124 / 124 0 / 0 5% in Water 200 ml @ 25 MCG/HR 2.5 mls/hr IV Q24H [facility] Rx#: [id number] Tube Feeding 606 / 606 468 / 468 GI Tube Flush 220 / 220 200 / 200 Output: Urine Catheter Amount 455 / 455 280 / 280 237 / 237 Other: Stool Size Large Small Stool Color Brown Brown Green Stool Consistency Liquid Liquid # Bowel Movements 1 Weight 175 lb Additional comments: Constitutional; Afebrile, intubated and sedated. Eyes- No icterus, , No periorbital swelling Ears- Ext ear normal, Neck- Midline trachea, supple Respiratory system: Air Entry equal on both sides, No crackles or wheezing, no rhonchi. CVS- Rate tachycardic, rhythm irregular, S1,S2 heard, no gallop, no rub. 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 she has non specific movements when off sedation. but does not follow commands. Transfer Discharge Sum: Data Procedures and tests throughout hospitalization: Pending Orders Head CT IMPRESSION: 1. No acute intracranial abnormality. No interval change since 01/26/2017. 2. Ventriculomegaly. No focal intra-axial attenuation abnormality. No intracranial hemorrhage 3. Sinus disease. This is probably related to intubation Chest X ray IMPRESSION: No definite interval change since 12/15/2017 Chest X Ray IMPRESSION: Improving bilateral pulmonary parenchymal infiltrates chest X ray IMPRESSION: 1. No change in endotracheal tube position. 2. Diffuse pulmonary parenchymal infiltrates with bibasilar consolidation. Echo LV normal in size, LV normal function Mild Biatrial enlargement Moderate to severe MR Moderate Pulm HTN CXR within a few hours of admission. IMPRESSION: Rapidly worsening infiltrates in both lungs CXR on admission IMPRESSION: Worsening pulmonary fibrosis Possible superimposed right lower lobe pneumonia Transfer Discharge Sum: A/P - Plan Overall status at transfer: patient is not back to baseline Disposition: [facility]
[2017-12-16] MEDS: WATER IV SCH (11:37)
[2017-12-16] MEDS: FENTANYL IV SCH (11:37)
[2017-12-16] MEDS: DEXTROSE 5% IV SCH (11:37)
== END 2017-12-16 12:15 | disposition short-term general hospital (02) | DRG 870 ==
LOC: ED 07:47 → MEDSUR 11:41 → ICU 13:30
PROVIDERS: ADMIT Internal Medicine; ATTEND Internal Medicine

== ENCOUNTER 2020-10-20 09:29 | Inpatient (IN) ==
--- NOTE | 2020-10-20 09:18 | Internal Med History&Physical ---
HPI History of Present Illness Patient information: Note initiated : 10/20/20 at 9:10 am Service Date, if different from initiated Date: [] Patient: Sylvia Tucker a 75 y/o F admitted on for Detox. Chief Complaint: Admission for medical detox History of present illness: Ms. Tucker is a 75 year old F who presents to the hospital for admission following referral from behavioral health services for excessive alcohol use, benzodiazepine dependence and detoxification. Patient has been drinking for a while and uses benzodiazepine along with alcohol. She expresses intent to quit drinking. Per history from behavioral health chart she will usually get her alcohol and hide from her who is unaware of her alcohol dependence. She was evaluated by behavioral health services and recommended inpatient detoxification for benzodiazepine and alcohol dependence. Hospitalist service was requested for admission to facilitate alcohol detox While as inpatient. Patient carries a known history of alcoholism/anxiety/neuropathy/RAD/DVT/HTN and was hospitalized in 2018 for ARDS/pneumonia requiring mechanical ventilation. She also carries a history of recurrent UTI with ESBL E. coli. She has not had a hospitalization since then and has been following up with primary care physician. She lives with her During today's visit patient is alert and oriented. She denies active distress. Does not demonstrate any signs of anxiety/apprehension or psychomotor agitation. Denies fever or sick contacts. Denies diarrhea dysuria joint pain or rash. Review of systems 10 point review system was performed and is negative except for ones discussed above PFSH PFSH All Active Problems (Updated 08/28/20 @ 09:45 by Agnes Corona DO) Sedative hypnotic or anxiolytic dependence (Acute) Alcohol use disorder, severe, dependence (Acute) Generalized anxiety disorder (Acute) Major depression, recurrent, chronic (Acute) Hypoxia (Acute) RLL pneumonia (Acute) Elevated procalcitonin (Acute) Candidal intertrigo (Chronic) Vaginal yeast infection (Chronic) Stress incontinence (Chronic) Cyanosis (Chronic) Lower extremity weakness (Chronic) Knee crepitus (Chronic) Vulvar atrophy (Chronic) Vulvitis (Chronic) Wound of left leg (Chronic) Tenosynovitis (Chronic) Simple bruising (Chronic) Peptic ulcer (Chronic) Colon polyp (Chronic) Microcalcifications of the breast (Chronic) Lumbar strain (Chronic) Vaginal itching (Chronic) Pelvic fracture (Chronic) Nausea (Chronic) History of low back pain (Chronic) Hypercholesterolemia (Chronic) Abdominal pain (Chronic) Flank pain (Chronic) Fatty liver (Chronic) Dysuria (Chronic) Drug therapy changed (Chronic) Diverticulosis (Chronic) Zazueta esophagus (Chronic) Vasomotor rhinitis (Chronic) Urinary urgency (Chronic) Stress incontinence, female (Chronic) Pyuria (Chronic) Neuropathic pain (Chronic) Lymphocytic colitis (Chronic) Liver disease, alcoholic (Chronic) Hypothyroidism (Chronic) Hyperlipidemia (Chronic) Hormone replacement therapy (postmenopausal) (Chronic) Fibroid uterus (Chronic) Esophagitis, reflux (Chronic) Diarrhea (Chronic) Depression (Chronic) Anemia in chronic illness (Chronic) Alcoholism in recovery (Chronic) Abnormal laboratory test (Chronic) Muscle weakness (Chronic) Difficulty walking (Chronic) Limb weakness (Chronic) Numbness and tingling (Chronic) Arthralgia (Chronic) Incontinence (Chronic) Pelvic pain (Chronic) Neuropathy (Chronic) Pain on intercourse (Chronic) Groin rash (Chronic) Acid reflux (Chronic) Hypertension (Chronic) Insomnia (Chronic) Anemia (Chronic) Allergic rhinitis (Chronic) Anxiety (Chronic) Cellulitis (Chronic) UTI (urinary tract infection) (Chronic) Delirium (Chronic) Acute kidney failure (Chronic) Dehydration (Chronic) Elevated liver enzymes (Chronic) Septic shock (Chronic) Medical History (Updated 08/28/20 @ 09:45 by Agnes Corona DO) Abdominal pain (Chronic) Abnormal laboratory test (Chronic) Acid reflux (Chronic) Acute kidney failure (Chronic) Alcoholism in recovery (Chronic) Allergic rhinitis (Chronic) Anemia (Chronic) Anemia in chronic illness (Chronic) Anxiety (Chronic) Arthralgia (Chronic) Zazueta esophagus (Chronic) Candidal intertrigo (Chronic) Cellulitis (Chronic) Colon polyp (Chronic) Cyanosis (Chronic) toes and feet Dehydration (Chronic) Delirium (Chronic) Depression (Chronic) Diarrhea (Chronic) Difficulty walking (Chronic) Diverticulosis (Chronic) Drug therapy changed (Chronic) Dysuria (Chronic) Elevated liver enzymes (Chronic) Esophagitis, reflux (Chronic) Fatty liver (Chronic) Fibroid uterus (Chronic) Flank pain (Chronic) Groin rash (Chronic) History of low back pain (Chronic) Hormone replacement therapy (postmenopausal) (Chronic) Hypercholesterolemia (Chronic) Hyperlipidemia (Chronic) Hypertension (Chronic) Hypothyroidism (Chronic) Incontinence (Chronic) Insomnia (Chronic) Knee crepitus (Chronic) bilateral Limb weakness (Chronic) Liver disease, alcoholic (Chronic) Lower extremity weakness (Chronic) bilateral Lumbar strain (Chronic) Lymphocytic colitis (Chronic) Microcalcifications of the breast (Chronic) Muscle weakness (Chronic) Nausea (Chronic) Neuropathic pain (Chronic) Neuropathy (Chronic) Numbness and tingling (Chronic) Pain on intercourse (Chronic) Pelvic fracture (Chronic) Pelvic pain (Chronic) Peptic ulcer (Chronic) Pyuria (Chronic) Septic shock (Chronic) Simple bruising (Chronic) Stress incontinence (Chronic) Stress incontinence, female (Chronic) Tenosynovitis (Chronic) left thumb Urinary urgency (Chronic) UTI (urinary tract infection) (Chronic) Vaginal itching (Chronic) Vaginal yeast infection (Chronic) Vasomotor rhinitis (Chronic) Vulvar atrophy (Chronic) Vulvitis (Chronic) Wound of left leg (Chronic) Surgical History History of appendectomy (Chronic) History of breast biopsy (Chronic) Percutan needle core History of breast surgery (Chronic) puncture aspiration of cyst History of cataract surgery (Chronic) bilateral 08/2013 and 09/2013 at [facility] in [place] History of colonoscopy (Chronic 01/19/12) found hyperplastic polyps and microscopic colitis also on biopsies History of esophagogastroduodenoscopy (EGD) (Chronic) Family History (Updated 08/27/20 @ 12:55 by Sherrill Valenzuela LPN) Family/Other Hypertension Stroke Fibromyalgia Breast cancer Cancer Colon cancer Dementia Osteoporosis of forearm Glaucoma Uncle Alcoholism /alcohol abuse Niece Alcoholism /alcohol abuse Social History (Updated 08/27/20 @ 12:48 by Sherrill Valenzuela LPN) marital status: occupational status: retired smoking status: Former smoker quit date: 10/03/09 pack-years: 30 alcohol intake frequency: 2+ drinks per day substance use type: does not use MEDS/ALLERGIES Home Medications and Allergies Home Medications Medication Instructions Recorded Confirmed Type omeprazole 20 mg PO ACB 09/08/15 10/20/20 History ascorbic acid (vitamin C) 1,000 mg PO DAILY 01/26/17 10/20/20 History calcium carbonate-vitamin D3 600 mg PO DAILY 01/26/17 10/20/20 History furosemide 20 mg PO PRN PRN 01/26/17 10/20/20 History levothyroxine 100 mcg PO QAMAC 01/26/17 10/20/20 History multivitamin 1 each PO DAILY 01/26/17 10/20/20 History vitamin B complex 1 cap PO DAILY 01/26/17 10/20/20 History alpha lipoic acid 300 mg capsule 600 mg PO QDAY cap 08/10/17 10/20/20 History duloxetine 60 mg capsule,delayed 60 mg PO QDAY 08/10/17 10/20/20 History release ipratropium bromide 42 mcg (0.06 1 spray INTRANASAL TID PRN ml 08/10/17 10/20/20 History %) nasal spray methylsulfonylmethane 1,000 mg 1,000 mg PO DAILY cap 08/10/17 10/20/20 History capsule vitamin E 400 unit capsule 400 unit PO QDAY 08/10/17 10/20/20 History apixaban 2.5 mg tablet 5 mg PO BID 12/07/18 10/20/20 History gabapentin 600 mg tablet 800 mg PO QID tab 12/07/18 10/20/20 History methenamine hippurate 1 gram tablet 1 g PO BID 90 Days #180 tab 06/24/20 10/20/20 Rx cranberry 400 mg PO BID 07/23/20 10/20/20 History metoprolol succinate 25 mg PO QDAY 07/23/20 10/20/20 History Allergies Allergy/AdvReac Type Severity Reaction Status Date / Time hydrochlorothiazide Allergy Mild Rash Verified 10/20/20 10:43 Paroxetine [From Paxil] Allergy Unknown Unknown Verified 09/04/20 15:18 codeine AdvReac Intermediate Nausea Verified 09/04/20 15:18 EXAM Constitutional Exam: Alert oriented no anxiety Head normocephalic Oral cavity moist No ear nose discharge Eye movement symmetrical Neck supple no lymphadenopathy S1-S2 regular Nonlabored breathing Nondistended nontender abdomen Lower extremity no cyanosis clubbing or joint swelling Skin no suspicious lesion Psych anxious no hallucinations or delirium Neuro normal higher function, GCS 15 A/P Narrative A/P Narrative: * Severe alcohol use disorder-continue alcohol withdrawal management per protocol per Dr. Umanzor behavioral health specialist. * Benzodiazepine dependence-management per behavioral health specialist * History of hypertension continue home dose metoprolol * GERD continue PPI * Neuropathy continue gabapentin * Reactive disease continue bronchodilators * Anticoagulation on apixaban * Recurrent ESBL UTI-on methenamine * History of hypothyroidism continue thyroxine * Full code * Prophylaxis Heparin Plan * Inpatient admission * Alcohol withdrawal/benzodiazepine dependence detoxification management per behavioral health specialist * Pre-existing medical condition management as above * Crystalloid/nutrition support/multivitamin and electrolyte replacement * Therapies as tolerated * Discharge planning Time Spent With Patient Time: Total time spent is greater than 50% in coordination of care (as documented) at patient's floor/unit and/or counseling patient:
[2020-10-20] MEDS ORDERED: POTASSIUM CHLORIDE 20 MEQ PACKET PO PRN (10:26)
[2020-10-20] MEDS ORDERED: ACETAMINOPHEN 325 MG TABLET PO PRN (10:26)
[2020-10-20] MEDS ORDERED: ACETAMINOPHEN 650 MG/65 ML BAG IV PRN (10:26)
[2020-10-20] MEDS ORDERED: ONDANSETRON 4 MG/2 ML VIAL IV PRN (10:26)
[2020-10-20] MEDS ORDERED: ONDANSETRON 4 MG ODT TABLET SL PRN (10:26)
[2020-10-20] MEDS ORDERED: BISACODYL 10 MG SUPP.RECT PR PRN (10:26)
[2020-10-20] MEDS ORDERED: MAGNESIUM SULFATE 2 GM/50 ML BAG IV PRN (10:26)
[2020-10-20] MEDS ORDERED: POLYETHYLENE GLYCOL 3350 17 GM PACKET PO PRN (10:26)
[2020-10-20] MEDS ORDERED: 0.9 % SODIUM CHLORIDE 1,000 ML IV SCH (10:30)
[2020-10-20 11:13] LABS: Basophils # (Auto) 0.07 K/mcL (0.00-0.20); Basophils % (Auto) 1.1 % (0.0-2.0); Eosinophils # (Auto) 0.23 K/mcL (0.00-0.70); Eosinophils % (Auto) 3.7 % (0.0-7.0); Hematocrit 37.2 % (36.0-48.0); Lymphocytes # (Auto) 1.53 K/mcL (1.50-4.80); Lymphocytes % (Auto) 24.8 % (15.0-49.0); Mean Cell Volume 96.6 fL (80.0-100.0); Mean Corpuscular HGB Conc 32.3 g/dL (31.0-36.0); Mean Platelet Volume 9.3 fL (7.4-10.4); Monocytes # (Auto) 0.64 K/mcL (0.10-0.90); Monocytes % (Auto) 10.4 % (1.0-12.0); Platelet Count 306 K/mcL (140-440); RBC 3.85 M/mcL (4.00-5.20); Red Cell Distribution Width 14.6 % (11.5-14.5); WBC 6.2 K/mcL (4.5-11.0)
[2020-10-20] MEDS ORDERED: chlordiazePOXIDE 25 MG CAPSULE PO SCH (11:15)
[2020-10-20 11:33] LABS: ALT/SGPT 10 U/L (<40); AST/SGOT 23 U/L (<32); Albumin 3.8 gm/dL (3.2-5.2); Albumin/Globulin Ratio 1.6 (1.0-2.3); Alkaline Phosphatase 64 U/L (39-117); Bilirubin,Direct < 0.2 mg/dL (<0.3); Bilirubin,Total 0.3 mg/dL (0.1-1.0); Blood Urea Nitrogen 25 mg/dL (8-23); Calcium 8.9 mg/dL (8.6-10.4); Carbon Dioxide 27 mmol/L (22-30); Chloride 100 mmol/L (96-108); Globulin 2.4 gm/dL (2.2-3.7); Glomerular Filtration Rate 55; Glucose 86 mg/dL (70-105); Lactate Dehydrogenase 216 U/L (135-225); Phosphorous 4.7 mg/dL (2.5-4.5); Triglycerides 83 mg/dL (<150); Uric Acid 7.8 mg/dL (2.5-8.0)
[2020-10-20 12:11] LABS: HDL Cholesterol 71 mg/dL (>40); LDL Cholesterol,Calculated 98 mg/dL (<100); Non-HDL Cholesterol 114 mg/dL (<130); Triglycerides 84 mg/dL (<150)
[2020-10-20] MEDS ORDERED: FUROSEMIDE 20 MG TABLET PO PRN (12:35)
[2020-10-20] MEDS ORDERED: IPRATROPIUM 0.06% NASAL SPRAY BOTTLE 30ML NAS PRN (12:35)
--- NOTE | 2020-10-20 13:29 | Internal Med Progress Note ---
SUBJECTIVE Subjective Patient information: Note initiated : 10/20/20 at 1:26 pm Service Date, if different from initiated Date: [] Patient: Sylvia Tucker a 75 y/o F admitted on 10/20/20 for Detox. Chief Complaint: [] Interval history: History of present illness: Ms. Tucker is a 75 year old F who presents to the hospital for admission following referral from behavioral health services for excessive alcohol use, benzodiazepine dependence and detoxification. Patient has been drinking for a while and uses benzodiazepine along with alcohol. She expresses intent to quit drinking. Per history from behavioral health chart she will usually get her alcohol and hide from her who is unaware of her alcohol dependence. She was evaluated by behavioral health services and recommended inpatient detoxification for benzodiazepine and alcohol dependence. Hospitalist service was requested for admission to facilitate alcohol detox While as inpatient. Patient carries a known history of alcoholism/anxiety/neuropathy/RAD/DVT/HTN and was hospitalized in 2018 for ARDS/pneumonia requiring mechanical ventilation. She also carries a history of recurrent UTI with ESBL E. coli. She has not had a hospitalization since then and has been following up with primary care physician. She lives with her During today's visit patient is alert and oriented. She denies active distress. Does not demonstrate any signs of anxiety/apprehension or psychomotor agitation. Denies fever or sick contacts. Denies diarrhea dysuria joint pain or rash. 10/21 Constitutional Vitals: Vital Signs Temp Pulse Resp BP Pulse Ox 97.7 F 66 20 180/71 92 10/20/20 12:26 10/20/20 12:26 10/20/20 12:26 10/20/20 12:26 10/20/20 12:26 Period Temp Pulse Resp BP Sys/Esqueda Pulse Ox Last 24 Hr 97.6 F-97.7 F 66-70 20-20 177-180/71-73 92-93 Intake and Output 10/19/20 10/20/20 10/20/20 21:59 05:59 13:59 Intake Total 300 Balance 300 Weight 72.665 kg Patient Weight 10/21/20 05:59 Weight 72.665 kg Intake & Output: Intake & Output 10/19/20 10/20/20 10/20/20 21:59 05:59 13:59 Intake Total 300 Balance 300 Weight 72.665 kg Intake: Oral 300 Other: Meal Lunch Percent of Meal Consumed 100% Feeding Ability Assist with Tray Set Up Exam: General: Alert, Awake, No acute Distress Eyes/N/T: EOMI, Head/Neck: neck supple, CV: RRR, No murmurs, Pulm: Clear b/l, no wheezing/rhonchi/rales Abd: soft, nontender, +BS x4 Ext: no clubbing/cyanosis/edema Neuro: Alert, no focal deficits, moves all extremities, Skin: warm/dry OBJ DATA Labs CBC & Chem 7: 10/20/20 10:35 10/20/20 10:35 Labs: Abnormal Lab Results 10/20/20 10/20/20 10:35 10:35 RBC 3.85 L RDW 14.6 H BUN 25 H Phosphorus 4.7 H Meds: Medications Acetaminophen (Tylenol) 650 mg PO Q4-6HP PRN; Protocol PRN Reason: Per Pain Protocol/Fever > 101 Bisacodyl (Dulcolax) 10 mg IN Q2-3DAYS PRN PRN Reason: Constipation Chlordiazepoxide HCl (Librium) 25 mg PO TODAY@1800,2300 REPLACED BY [facility] Stop: 10/20/20 23:01 Chlordiazepoxide HCl (Librium) 25 mg PO DAILY REPLACED BY [facility] Stop: 10/22/20 09:01 Chlordiazepoxide HCl (Librium) 25 mg PO Q12 REPLACED BY [facility] Stop: 10/21/20 21:01 Cyanocobalamin (Vitamin B-12) 1,000 mcg PO BID REPLACED BY [facility] Stop: 10/25/20 09:01 Docusate Sodium (Colace) 100 mg PO BID KENDRA Duloxetine HCl (Cymbalta) 30 mg PO DAILY KENDRA Folic Acid (Folic Acid) 1 mg PO DAILY KENDRA Furosemide (Lasix) 20 mg PO DAILYP PRN PRN Reason: Edema Gabapentin (Neurontin) 800 mg PO QID KENDRA Heparin Sodium (Porcine) (Heparin) 5,000 unit SQ Q12 KENDRA Acetaminophen (Ofirmev) 650 mg in 65 mls @ 130 mls/hr IV Q6HP PRN; Protocol PRN Reason: Per Pain Protocol/Fever > 101 Magnesium Sulfate (Magnesium Sulfate) 2 gm in 50 mls @ 50 mls/hr IV UD PRN PRN Reason: MG = or < 1.7 Sodium Chloride (Sodium Chloride 0.9%) 1,000 mls @ 50 mls/hr IV .Q20H KENDRA Stop: 10/22/20 22:29 Ipratropium [place] (Atrovent 0.06% Nasal Srpay) 1 spray TONY TID PRN PRN Reason: Shortness Of Breath Iron Carb/Multivit/Skamania/Folic Acid (Multivitamin W/Minerals) 1 tab PO DAILY KENDRA Levothyroxine Sodium (Synthroid) 100 mcg PO ACB KENDRA Melatonin (Melatonin 3mg Tablet) 3 mg PO HSP PRN PRN Reason: Insomnia Metoprolol Succinate (Toprol Xl) 25 mg PO DAILY KENDRA Non-Formulary Medication (Apixaban [Eliquis]) 5 mg PO BID KENDRA Non-Formulary Medication (Methenamine Hippurate) 1 g PO BID KENDRA Non-Formulary Medication (Methylsulfonylmethane [Msm]) 1,000 mg PO DAILY KENDRA Omeprazole (Prilosec) 20 mg PO ACB KENDRA Ondansetron HCl (Zofran Odt) 4 mg SL Q4-6HP PRN; Protocol PRN Reason: Nausea And Vomiting Ondansetron HCl (Zofran) 4 mg IV Q4-6HP PRN; Protocol PRN Reason: Nausea And Vomiting Polyethylene Glycol (Miralax) 17 gm PO DAILYP PRN PRN Reason: Constipation Potassium Chloride (Klor-Con) 40 meq PO DAILYP PRN PRN Reason: K+ < 3.5 Senna/Docusate Sodium (Senna Plus Tablet) 1 tab PO HS KENDRA Sodium Chloride (Saline Flush) 10 ml IV Q8 KENDRA Thiamine HCl (Vitamin B1) 100 mg PO DAILY KENDRA A/P Narrative A/P Narrative: A: *Severe alcohol use disorder: *Benzodiazepine dependence: *HTN: home dose metoprolol *GERD: continue PPI *Neuropathy: continue gabapentin *Reactive disease: continue bronchodilators *Anticoagulation on apixaban *Recurrent ESBL UTI: on methenamine *Hypothyroidism: continue thyroxine Plan: -Alcohol withdrawal/benzodiazepine dependence detoxification management per Dr. Umanzor behavioral health specialist. -Pre-existing medical condition management as above -Crystalloid/nutrition support/multivitamin and electrolyte replacement -ppx: home apixaban full code Time Spent With Patient Time: Total time spent is greater than 50% in coordination of care (as documented) at patient's floor/unit and/or counseling patient: QUALITY VTE Deep Vein Thrombosis/Pulmonary Embolism Present on Admission: No
[2020-10-20] MEDS: GABAPENTIN 400 MG CAPSULE PO SCH ×3 (14:02→21:09)
--- NOTE | 2020-10-20 14:08 | Behavioral Health Consult ---
HPI History of Present Illness Patient information: Note initiated : 10/20/20 at 1:56 pm Service Date, if different from initiated Date: [] Patient: Sylvia Tucker a 75 y/o F admitted on 10/20/20 for Detox. Chief Complaint: alcohol withdrawal Chief complaint: Alcohol withdrawal History of present illness: Ms. Tucker is a 75 year old F who has been referred to me by her electronic controls repairer supervisor, Yessi Davila for evaluation and management of alcohol abuse. Patient relates history of alcohol use since she was a teenager but is unable to recall significant details. She states that she recalls increase use in her 30s, when she started drinking scotch and soda on a daily basis with her girlfriend. 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 Patient states that 4 years ago she has been treated for sepsis secondary to urinary tract infection and was on the ventilator. Patient states that she was told that her alcohol use complicated her recovery. For several years, patient relates history of use of gin and tonic since 11 AM. She is unable to tell me how much she has been drinking except that she never liked to have an empty glass and was always feeling it throughout the day. Patient states that she has been drinking all day long. Patient attempted to switch to wine on several occasions. She states that she and her have been for 38 years and have a very good relationship. She states that her is a social drinker and does not have problem with alcohol. She admits to hiding alcohol from him so that he does not know exactly how much he is drinking and also on several occasions, he looks to see where he keeps his alcohol when she drinks all of her own supply. Patient states that sometimes she did buy an extra bottle of wine so that her she drank a whole bottle already on her own. Patient states that she has had multiple health complications as a result of her alcohol use. In 2018, patient had respiratory failure and was life flighted to ICU in [place]. She spent 3 weeks in the hospital and was diagnosed with atrial fibrillation secondary to alcohol use. Patient states that she and her go on vacation quite frequently and that setting that contributes to her drinking to excess. Patient states that her and her like to drink in the afternoon as a way to slow down and visit with each other. Patient states that on one of her trips coming home, patient lost consciousness at the airport and was diagnosed with severe anemia secondary to a GI bleed. She has been referred to me by her electronic controls repairer supervisor on 01/08/2020 but did not follow through on the referral initially because she thought that she was going to be able to control her drinking. However, despite being told by multiple physicians that her life is in danger as a result of her alcohol use she continues to drink. She states that she is recognizing now that she is not able to control her alcohol use. In the last several months, patient has been drinking 4-5 shots of Sagar Buck as well as 2 more glasses of wine a day. In the last few weeks, patient has admitted to drinking 4-5 shots of Sagar Buck as well as 2 glasses of wine with her last drink being at 10 PM 1 day ago. In addition, patient admits to use of triazolam for sleep. She states that initially she was taking 1 tablet at bedtime and states that she progressively has increased her use to needing 2 tablets at night. Patient admits to taking more triazolam than prescribed, taking 2 to 3 tablets of 0.5 mg instead of 1 tablet at bedtime. In addition she admits to occasionally taking lorazepam, and medication that has been in her possession for quite some time and has no recent prescription from any provider. She cannot recall the last time that she has taken that medication. Patient has a history of smoking a pack of cigarettes a day since she was a teenager but quit 10 years ago. She continues to use nicotine gum. Patient denies any use of opioids, methamphetamines, cocaine or any other controlled or illicit substances. Board of pharmacy is positive for triazolam only. Patient states that her electronic controls repairer supervisor is concerned about her having another GI bleed or progressing toward cirrhosis if she does not stop drinking alcohol. She admits to atrial fibrillation secondary to alcohol use but denies pancreatitis, seizures, or delirium tremens. Patient admits to history of being diagnosed with depression in 1977 and states that she received outpatient treatment with Wellbutrin but at some point tapered off the medication because she did not want to be taking medication. She denies any medication assisted treatment or any treatment for substance abuse. Patient denies attending AA. Patient states that she and her have 3 children and several great g randkids. Patient denies any history of trauma or abuse. Denies any history of inpatient mental health hospitalization. Denies past history of suicidal or homicidal ideation. Patient admits to struggling with anxiety as well as cravings. She does have a sister who is an alcoholic as well as an uncle. She states that neither one of her parents had alcohol or substance abuse to her knowledge. Patient's primary care provider is Dr. Mini Man. Patient states that she has not been able to be forthcoming with her about the extent of her alcohol use and states that she is afraid and tentative in disclosing that information to him because she does not want to disappoint. Patient recognizes the need to stop alcohol in order to manage the disease of addiction but also improve her overall health as she has been incurring multiple medical comorbidity as a result of her alcoholism. She has been unable to do so on her own due to withdrawal symptoms. Constitutional Constitutional: Present fatigue; Absent anorexia, chills, daytime sleepiness, excessive sweating, fever(s), frequent falls, headache(s), increased appetite, lethargy, malaise, night sweats, snoring, stops breathing during sleep, weakness, weight gain and weight loss EENT Eyes: Absent blind spots, blurry vision, change in vision, decreased night vision, diplopia, discharge, dry eye, exophthalmos, floaters, irritation, itchy eyes, loss of peripheral vision, loss of vision, pain, photophobia, requires corrective lenses, seeing flashes, spots in vision and tunnel vision Ears: Absent decreased hearing, ear discharge, ear pain and tinnitus Nose, mouth and throat: Absent change in voice, dental pain, dizziness, dry mouth, dysphagia, epistaxis, headache(s), mouth lesions, mouth pain, nasal discharge, nasal obstruction, nasal trauma, neck mass, neck pain, nose pain, sinus pain, sinus pressure, sore throat, throat swelling and vertigo Cardiovascular Cardiovascular: Absent chest pain, diaphoresis, dyspnea, dyspnea on exertion, edema, irregular heart rhythm, radiating jaw, neck or arm pain, leg edema, lightheadedness, palpatations, paroxysmal nocturnal dyspnea, pedal edema, radiating pain, rapid heart rate, slow heart rate and syncope Respiratory Respiratory: Absent cough, dyspnea, hemoptysis, dyspnea on exertion, wheezing, stridor, pain on inspirtation, chest congestion, excessive phlegm production and pain with cough Gastrointestinal Gastrointestinal: Absent abdominal pain, bloating, coffee ground emesis, constipation, diarrhea, dyspepsia, early satiety, excessive flatus and odynophagia Genitourinary Genitourinary: Absent dysuria, flank pain, pelvic pain, urinary frequency and urinary urgency Musculoskeletal Musculoskeletal: Absent abnormal gait, back pain, joint swelling, limited range of motion, muscle cramps, muscle weakness, myalgias, neck pain, numbness, radiating pain into limb, stiffness and tingling Integumentary Integumentary: Absent bleeding lesions, change in hair, change in pigmentation, dry skin, hirsutism, lesions, new lesions, photosensitivity, pruritus, rash, skin pain, skin ulcer, swelling and unusual bruising Neurological Neurological: Present tremor(s); Absent abnormal gait, abnormal hearing, abnormal movements, abnormal speech, burning sensations, confusion, convulsions, dizziness, frequent falls, headache(s), lack of coordination, loss of vision, memory loss, numbness, paresthesias, restless legs, sensory deficit, syncope, tingling and vertigo Psychiatric Psychiatric: Present anxiety, cravings, depression, hopelessness, irritability, mood swings and panic attacks; Absent auditory hallucinations, confusion, hallucinations, memory loss, paranoia, suicidal ideation and visual hallucinations Endocrine Endocrine: Present fatigue; Absent excessive sweating, flushing, heat intolerance, palpitations, polydipsia and polyuria Hematologic/Lymphatic Hematologic/Lymphatic: Absent easy bleeding, easy bruising and lymphadenopathy Allergic/Immunologic Allergic/Immunologic: Absent tongue swelling, throat swelling, itchy eyes, uticaria, wheezing and lip swelling PFSH PFSH All Active Problems (Updated 10/20/20 @ 14:04 by Agnes Corona DO) Alcohol withdrawal (Acute) Sedative hypnotic or anxiolytic dependence (Acute) Alcohol use disorder, severe, dependence (Acute) Generalized anxiety disorder (Acute) Major depression, recurrent, chronic (Acute) Hypoxia (Acute) RLL pneumonia (Acute) Elevated procalcitonin (Acute) Candidal intertrigo (Chronic) Vaginal yeast infection (Chronic) Stress incontinence (Chronic) Cyanosis (Chronic) Lower extremity weakness (Chronic) Knee crepitus (Chronic) Vulvar atrophy (Chronic) Vulvitis (Chronic) Wound of left leg (Chronic) Tenosynovitis (Chronic) Simple bruising (Chronic) Peptic ulcer (Chronic) Colon polyp (Chronic) Microcalcifications of the breast (Chronic) Lumbar strain (Chronic) Vaginal itching (Chronic) Pelvic fracture (Chronic) Nausea (Chronic) History of low back pain (Chronic) Hypercholesterolemia (Chronic) Abdominal pain (Chronic) Flank pain (Chronic) Fatty liver (Chronic) Dysuria (Chronic) Drug therapy changed (Chronic) Diverticulosis (Chronic) [place] esophagus (Chronic) Vasomotor rhinitis (Chronic) Urinary urgency (Chronic) Stress incontinence, female (Chronic) Pyuria (Chronic) Neuropathic pain (Chronic) Lymphocytic colitis (Chronic) Liver disease, alcoholic (Chronic) Hypothyroidism (Chronic) Hyperlipidemia (Chronic) Hormone replacement therapy (postmenopausal) (Chronic) Fibroid uterus (Chronic) Esophagitis, reflux (Chronic) Diarrhea (Chronic) Depression (Chronic) Anemia in chronic illness (Chronic) Alcoholism in recovery (Chronic) Abnormal laboratory test (Chronic) Muscle weakness (Chronic) Difficulty walking (Chronic) Limb weakness (Chronic) Numbness and tingling (Chronic) Arthralgia (Chronic) Incontinence (Chronic) Pelvic pain (Chronic) Neuropathy (Chronic) Pain on intercourse (Chronic) Groin rash (Chronic) Acid reflux (Chronic) Hypertension (Chronic) Insomnia (Chronic) Anemia (Chronic) Allergic rhinitis (Chronic) Anxiety (Chronic) Cellulitis (Chronic) UTI (urinary tract infection) (Chronic) Delirium (Chronic) Acute kidney failure (Chronic) Dehydration (Chronic) Elevated liver enzymes (Chronic) Septic shock (Chronic) Medical History (Updated 10/20/20 @ 14:04 by Agnes Corona DO) Abdominal pain (Chronic) Abnormal laboratory test (Chronic) Acid reflux (Chronic) Acute kidney failure (Chronic) Alcoholism in recovery (Chronic) Allergic rhinitis (Chronic) Anemia (Chronic) Anemia in chronic illness (Chronic) Anxiety (Chronic) Arthralgia (Chronic) [place] esophagus (Chronic) Candidal intertrigo (Chronic) Cellulitis (Chronic) Colon polyp (Chronic) Cyanosis (Chronic) toes and feet Dehydration (Chronic) Delirium (Chronic) Depression (Chronic) Diarrhea (Chronic) Difficulty walking (Chronic) Diverticulosis (Chronic) Drug therapy changed (Chronic) Dysuria (Chronic) Elevated liver enzymes (Chronic) Esophagitis, reflux (Chronic) Fatty liver (Chronic) Fibroid uterus (Chronic) Flank pain (Chronic) Groin rash (Chronic) History of low back pain (Chronic) Hormone replacement therapy (postmenopausal) (Chronic) Hypercholesterolemia (Chronic) Hyperlipidemia (Chronic) Hypertension (Chronic) Hypothyroidism (Chronic) Incontinence (Chronic) Insomnia (Chronic) Knee crepitus (Chronic) bilateral Limb weakness (Chronic) Liver disease, alcoholic (Chronic) Lower extremity weakness (Chronic) bilateral Lumbar strain (Chronic) Lymphocytic colitis (Chronic) Microcalcifications of the breast (Chronic) Muscle weakness (Chronic) Nausea (Chronic) Neuropathic pain (Chronic) Neuropathy (Chronic) Numbness and tingling (Chronic) Pain on intercourse (Chronic) Pelvic fracture (Chronic) Pelvic pain (Chronic) Peptic ulcer (Chronic) Pyuria (Chronic) Septic shock (Chronic) Simple bruising (Chronic) Stress incontinence (Chronic) Stress incontinence, female (Chronic) Tenosynovitis (Chronic) left thumb Urinary urgency (Chronic) UTI (urinary tract infection) (Chronic) Vaginal itching (Chronic) Vaginal yeast infection (Chronic) Vasomotor rhinitis (Chronic) Vulvar atrophy (Chronic) Vulvitis (Chronic) Wound of left leg (Chronic) Surgical History History of appendectomy (Chronic) History of breast biopsy (Chronic) Percutan needle core History of breast surgery (Chronic) puncture aspiration of cyst History of cataract surgery (Chronic) bilateral 08/2013 and 09/2013 at [facility] in [place] History of colonoscopy (Chronic 01/19/12) found hyperplastic polyps and microscopic colitis also on biopsies History of esophagogastroduodenoscopy (EGD) (Chronic) Family History (Updated 08/27/20 @ 12:55 by Sherrill Valenzuela LPN) Family/Other Hypertension Stroke Fibromyalgia Breast cancer Cancer Colon cancer Dementia Osteoporosis of forearm Glaucoma Uncle Alcoholism /alcohol abuse Niece Alcoholism /alcohol abuse Social History (Updated 08/27/20 @ 12:48 by Sherrill Valenzuela LPN) marital status: occupational status: retired smoking status: Former smoker quit date: 10/03/09 pack-years: 30 alcohol intake frequency: 2+ drinks per day substance use type: does not use MEDS/ALLERGIES Home Medications and Allergies Home Medications Medication Instructions Recorded Confirmed Type omeprazole 20 mg PO ACB 09/08/15 10/20/20 History ascorbic acid (vitamin C) 1,000 mg PO DAILY 01/26/17 10/20/20 History calcium carbonate-vitamin D3 600 mg PO DAILY 01/26/17 10/20/20 History furosemide 20 mg PO PRN PRN 01/26/17 10/20/20 History levothyroxine 100 mcg PO QAMAC 01/26/17 10/20/20 History multivitamin 1 each PO DAILY 01/26/17 10/20/20 History vitamin B complex 1 cap PO DAILY 01/26/17 10/20/20 History alpha lipoic acid 300 mg capsule 600 mg PO QDAY cap 08/10/17 10/20/20 History duloxetine 60 mg capsule,delayed 60 mg PO QDAY 08/10/17 10/20/20 History release ipratropium bromide 42 mcg (0.06 1 spray INTRANASAL TID PRN ml 08/10/17 0 10/20/20 History %) nasal spray methylsulfonylmethane 1,000 mg 1,000 mg PO DAILY cap 08/10/17 10/20/20 History capsule vitamin E 400 unit capsule 400 unit PO QDAY 08/10/17 10/20/20 History apixaban 2.5 mg tablet 5 mg PO BID 12/07/18 10/20/20 History gabapentin 600 mg tablet 800 mg PO QID tab 12/07/18 10/20/20 History methenamine hippurate 1 gram tablet 1 g PO BID 90 Days #180 tab 06/24/20 10/20/20 Rx cranberry 400 mg PO BID 07/23/20 10/20/20 History metoprolol succinate 25 mg PO QDAY 07/23/20 10/20/20 History Allergies Allergy/AdvReac Type Severity Reaction Status Date / Time hydrochlorothiazide Allergy Mild Rash Verified 10/20/20 10:43 Paroxetine [From Paxil] Allergy Unknown Unknown Verified 09/04/20 15:18 codeine AdvReac Intermediate Nausea Verified 09/04/20 15:18 Physical Examination Vital Signs Vital signs: Temp Pulse Resp BP Pulse Ox 97.7 F 66 20 180/71 92 10/20/20 12:10/20/20 12:10/20/20 12:10/20/20 12:10/20/20 12:26 Constitutional General appearance: no acute distress and alert EENT Eyes pulmonary: nonicteric ENT: oropharynx moist Neck: supple, no lymphadenopathy and no JVD Respiratory Effort: normal Auscultation: bilateral: clear Percussion: bilateral: not dull Cardiovascular Cardiovascular: regular rate and rhythm Gastrointestinal Gastrointestinal: normoactive bowel sounds Integumentary Integumentary: normal Extremities Extremities: no cyanosis, no edema, pulses normal and no ischemia or petechiae Musculoskeletal Musculoskeletal: no deformities and ROM normal Gait: normal gait Neurologic Neurological: normal mental status, non-focal exam, pupils equal and round, CN II-XII normal and motor strength normal and symmetric Psychiatric Psychiatric: anxious and tearful Additional Exam Additional exam: CIWA 0 mild tremor upper extremities b/l Results Laboratory Findings CBC and BMP: 10/20/20 10:35 10/20/20 10:35 Abnormal lab findings: Abnormal Labs 10/20/20 10/20/20 10:35 10:35 RBC 3.85 L RDW 14.6 H BUN 25 H Phosphorus 4.7 H A/P Assessment and plan (1) Major depression, recurrent, chronic: Status: Acute (2) Generalized anxiety disorder: Status: Acute (3) Alcohol use disorder, severe, dependence: Status: Acute (4) Sedative hypnotic or anxiolytic dependence: Status: Acute (5) Alcohol withdrawal: Status: Acute Qualifiers: Complication of substance-induced condition: uncomplicated Qualified Code(s): F10.230 - Alcohol dependence with withdrawal, uncomplicated Narrative A/P Narrative: Counseled patient extensively about the disease of addiction and discussed medication assisted treatment options. I counseled patient about the interactions between alcohol as well as benzodiazepines including triazolam and lorazepam, resulting in potential harm to health and even overdose. We discussed the process of inpatient detox as patient is high risk for delirium tremens as well as seizures. Discussed initiating treatment with chlordiazepoxide taper. We are going to monitor CIWA scores closely hourly. Urine drug test is positive for Etg but patient has not been able to provide breathalyzer. We will obtain CBC as well as CMP, lipids and TSH. I am coordinating care with patient's primary care provider Dr. Man and also discussed triggers and the importance of elimination of all alcohol from the house. Patient does not feel that the duloxetine has been effective and requested to initiate taper. Discussed decreasing duloxetine from 60 to 30 mg daily. Close daily follow-up Time Spent With Patient Time: Total time spent is greater than 50% in coordination of care (as documente d) at patient's floor/unit and/or counseling patient: I have spent time counseling patient regarding the disease of addiction, reviewing her lab work and coordinating care with the hospitalist staff as well as nursing staff. [id number] time with the patient has been 35 minutes, [id number] time was 25 minutes of coordinating care with primary care provider, speaking to patient's , coordinating care with the hospitalist as well as patient's primary care physician and putting in orders. Total time spent with greater than 50% in coordination of care (as documented) at patient's floor/unit and/or counseling patient:: Greater than 35 minutes
[2020-10-20] MEDS: 0.9 % SODIUM CHLORIDE 10 ML SYRINGE IV SCH ×2 (14:11→21:09)
[2020-10-20] MEDS: chlordiazePOXIDE 25 MG CAPSULE PO SCH ×2 (17:26→22:43)
[2020-10-20] MEDS ORDERED: HEPARIN 5,000 UNIT/ML VIAL SQ SCH (21:00)
[2020-10-20] MEDS: APIXABAN 5 MG TABLET PO SCH (21:09)
[2020-10-20] MEDS: SENNOSIDES/DOCUSATE SODIUM 1 TAB TABLET PO SCH (21:09)
[2020-10-20] MEDS: DOCUSATE SODIUM 100 MG CAPSULE PO SCH (21:09)
[2020-10-20] MEDS: MELATONIN 3 MG TABLET PO PRN (21:09)
[2020-10-20] MEDS: CYANOCOBALAMIN (VITAMIN B-12) 500 MCG TABLET PO SCH (21:09)
[2020-10-20] MEDS: traZODone HCL 50 MG TABLET PO PRN (22:43)
[2020-10-21] MEDS: 0.9 % SODIUM CHLORIDE 10 ML SYRINGE IV SCH ×2 (06:14→16:04)
[2020-10-21] MEDS: LEVOTHYROXINE 100 MCG TABLET PO SCH (07:08)
[2020-10-21] MEDS: OMEPRAZOLE 20 MG CAPSULE PO SCH (07:08)
--- NOTE | 2020-10-21 07:44 | Internal Med Progress Note ---
SUBJECTIVE Subjective Patient information: Note initiated : 10/21/20 at 7:43 am Service Date, if different from initiated Date: [] Patient: Sylvia Tucker a 75 y/o F admitted on 10/20/20 for Detox. Chief Complaint: [] Interval history: History of present illness: Ms. Tucker is a 75 year old F who presents to the hospital for admission following referral from behavioral health services for excessive alcohol use, benzodiazepine dependence and detoxification. Patient has been drinking for a while and uses benzodiazepine along with alcohol. She expresses intent to quit drinking. Per history from behavioral health chart she will usually get her alcohol and hide from her who is unaware of her alcohol dependence. She was evaluated by behavioral health services and recommended inpatient detoxification for benzodiazepine and alcohol dependence. Hospitalist service was requested for admission to facilitate alcohol detox While as inpatient. Patient carries a known history of alcoholism/anxiety/neuropathy/RAD/DVT/HTN and was hospitalized in 2018 for ARDS/pneumonia requiring mechanical ventilation. She also carries a history of recurrent UTI with ESBL E. coli. She has not had a hospitalization since then and has been following up with primary care physician. She lives with her During today's visit patient is alert and oriented. She denies active distress. Does not demonstrate any signs of anxiety/apprehension or psychomotor agitation. Denies fever or sick contacts. Denies diarrhea dysuria joint pain or rash. 10/21 Mild headache. Otherwise no new complaints or overnight events. Review of Systems: denies fever/chills/nausea/vomiting/chest or abdominal pain/cough/dyspnea/diarrhea. Otherwise see above. Constitutional Vitals: Vital Signs Temp Pulse Resp BP Pulse Ox 97.4 F 57 L 12 130/57 90 10/21/20 04:36 10/21/20 04:36 10/21/20 04:36 10/21/20 04:36 10/21/20 04:36 Period Temp Pulse Resp BP Sys/Esqueda Pulse Ox Last 24 Hr 97.4 F-98.9 F 57-71 12-20 130-180/57-73 90-96 Intake and Output 10/20/20 10/21/20 10/21/20 21:59 05:59 13:59 Intake Total 800 490 Output Total 1150 1000 200 Balance -350 -510 -200 Weight 74.162 kg Intake & Output: Intake & Output 10/20/20 10/21/20 10/21/20 21:59 05:59 13:59 Intake Total 800 490 Output Total 1150 1000 200 Balance -350 -510 -200 Weight 74.162 kg Intake: Oral 800 490 Output: Void Amount 1150 1000 200 Other: Meal Fruit cup Percent of Meal Consumed 100% Feeding Ability Independent Urine Appearance Cloudy Clear Urine Color Bright Yellow Bright Yellow Urine Odor Normal # Voids 1 # Bowel Movements 1 Exam: General: Alert, Awake, No acute Distress Eyes/N/T: EOMI, Head/Neck: neck supple, CV: RRR, No murmurs, Pulm: Clear b/l, no wheezing/rhonchi/rales Abd: soft, nontender, +BS x4 Ext: no clubbing/cyanosis/edema Neuro: Alert, no focal deficits, moves all extremities, Skin: warm/dry OBJ DATA Labs CBC & Chem 7: 10/20/20 10:35 10/21/20 06:04 Labs: Abnormal Lab Results 10/20/20 10/20/20 10:35 10:35 RBC 3.85 L RDW 14.6 H BUN 25 H Phosphorus 4.7 H Meds: Medications Acetaminophen (Tylenol) 650 mg PO Q4-6HP PRN; Protocol PRN Reason: Per Pain Protocol/Fever > 101 Apixaban (Eliquis) 5 mg PO BID [facility] Last Admin: 10/20/20 21:09 Dose: 5 mg Documented by: Bisacodyl (Dulcolax) 10 mg VT Q2-3DAYS PRN PRN Reason: Constipation Chlordiazepoxide HCl (Librium) 25 mg PO DAILY [facility] Stop: 10/22/20 09:01 Chlordiazepoxide HCl (Librium) 25 mg PO Q12 [facility] Stop: 10/21/20 21:01 Cyanocobalamin (Vitamin B-12) 1,000 mcg PO BID [facility] Stop: 10/25/20 09:01 Last Admin: 10/20/20 21:09 Dose: 1,000 mcg Documented by: Docusate Sodium (Colace) 100 mg PO BID [facility] Last Admin: 10/20/20 21:09 Dose: Not Given Documented by: Duloxetine HCl (Cymbalta) 30 mg PO DAILY [facility] Folic Acid (Folic Acid) 1 mg PO DAILY [facility] Furosemide (Lasix) 20 mg PO DAILYP PRN PRN Reason: Edema Gabapentin (Neurontin) 800 mg PO QID [facility] Last Admin: 10/20/20 21:09 Dose: 800 mg Documented by: Acetaminophen (Ofirmev) 650 mg in 65 mls @ 130 mls/hr IV Q6HP PRN; Protocol PRN Reason: Per Pain Protocol/Fever > 101 Magnesium Sulfate (Magnesium Sulfate) 2 gm in 50 mls @ 50 mls/hr IV UD PRN PRN Reason: MG = or < 1.7 Ipratropium [place] (Atrovent 0.06% Nasal Srpay) 1 spray TONY TID PRN PRN Reason: Congestion Iron Carb/Multivit/[place]/Folic Acid (Multivitamin W/Minerals) 1 tab PO DAILY [facility] Levothyroxine Sodium (Synthroid) 100 mcg PO ACB [facility] Last Admin: 10/21/20 07:08 Dose: 100 mcg Documented by: Melatonin (Melatonin 3mg Tablet) 3 mg PO HSP PRN PRN Reason: Insomnia Last Admin: 10/20/20 21:09 Dose: 3 mg Documented by: Metoprolol Succinate (Toprol Xl) 25 mg PO DAILY [facility] Omeprazole (Prilosec) 20 mg PO ACB [facility] Last Admin: 10/21/20 07:08 Dose: 20 mg Documented by: Ondansetron HCl (Zofran Odt) 4 mg SL Q4-6HP PRN; Protocol PRN Reason: Nausea And Vomiting Ondansetron HCl (Zofran) 4 mg IV Q4-6HP PRN; Protocol PRN Reason: Nausea And Vomiting Methenamine (Hippurate 1 Gm Tab) 1 dose PO BID [facility] Last Admin: 10/20/20 21:13 Dose: 1 dose Documented by: Methylsulfonylmethan (e [Msm] 1,000 Mg Tab) 1 dose PO DAILY [facility] Polyethylene Glycol (Miralax) 17 gm PO DAILYP PRN PRN Reason: Constipation Potassium Chloride (Klor-Con) 40 meq PO DAILYP PRN PRN Reason: K+ < 3.5 Senna/Docusate Sodium (Senna Plus Tablet) 1 tab PO HS [facility] Last Admin: 10/20/20 21:09 Dose: Not Given Documented by: Sodium Chloride (Saline Flush) 10 ml IV Q8 [facility] Last Admin: 10/21/20 06:14 Dose: Not Given Documented by: Thiamine HCl (Vitamin B1) 100 mg PO DAILY [facility] Trazodone HCl (Desyrel) 50 mg PO HSP PRN PRN Reason: Insomnia Last Admin: 10/20/20 22:43 Dose: 50 mg Documented by: A/P Narrative A/P Narrative: A: *Severe alcohol use disorder: *Benzodiazepine dependence: *HTN: home dose metoprolol *GERD: continue PPI *Neuropathy: continue gabapentin *Reactive disease: continue bronchodilators *Depression/anxiety: *Afib: on apixaban *Recurrent ESBL UTI: on methenamine *Hypothyroidism: continue thyroxine Plan: -Alcohol withdrawal/benzodiazepine dependence detoxification management per Dr. Umanzor behavioral health specialist. -Pre-existing medical condition management as above -Crystalloid/nutrition support/multivitamin and electrolyte replacement -ppx: home apixaban full code Time Spent With Patient Time: Total time spent is greater than 50% in coordination of care (as documented) at patient's floor/unit and/or counseling patient: QUALITY VTE Deep Vein Thrombosis/Pulmonary Embolism Present on Admission: No
[2020-10-21 08:06] LABS: ALT/SGPT 7 U/L (<40); AST/SGOT 15 U/L (<32); Albumin 3.2 gm/dL (3.2-5.2); Albumin/Globulin Ratio 1.6 (1.0-2.3); Alkaline Phosphatase 55 U/L (39-117); Bilirubin,Direct < 0.2 mg/dL (<0.3); Bilirubin,Total 0.4 mg/dL (0.1-1.0); Blood Urea Nitrogen 23 mg/dL (8-23); Calcium 8.6 mg/dL (8.6-10.4); Carbon Dioxide 27 mmol/L (22-30); Chloride 104 mmol/L (96-108); Glomerular Filtration Rate 62; Glucose 101 mg/dL (70-105); Lactate Dehydrogenase 167 U/L (135-225); Phosphorous 4.5 mg/dL (2.5-4.5); Triglycerides 111 mg/dL (<150); Uric Acid 7.4 mg/dL (2.5-8.0)
[2020-10-21] MEDS: DULoxetine 30 MG CAPSULE PO SCH (08:51)
[2020-10-21] MEDS: FOLIC ACID 1 MG TABLET PO SCH (08:51)
[2020-10-21] MEDS: THIAMINE 100 MG TABLET PO SCH (08:52)
[2020-10-21] MEDS: CYANOCOBALAMIN (VITAMIN B-12) 500 MCG TABLET PO SCH ×2 (08:52→19:52)
[2020-10-21] MEDS: GABAPENTIN 400 MG CAPSULE PO SCH ×4 (08:52→19:52)
[2020-10-21] MEDS: chlordiazePOXIDE 25 MG CAPSULE PO SCH ×2 (08:53→19:53)
[2020-10-21] MEDS: METOPROLOL SUCCINATE 25 MG TAB.XL.24H PO SCH (08:53)
[2020-10-21] MEDS: APIXABAN 5 MG TABLET PO SCH ×2 (08:53→19:52)
[2020-10-21] MEDS: MULTIVIT,THER IRON,CA,FA & MIN 1 TABLET PO SCH (08:53)
[2020-10-21] MEDS: DOCUSATE SODIUM 100 MG CAPSULE PO SCH ×3 (09:07→21:36)
[2020-10-21] MEDS: METHYLSULFONYLMETHANE 1000 MG PO SCH (09:48)
[2020-10-21] MEDS ORDERED: chlordiazePOXIDE 25 MG CAPSULE PO SCH (11:15)
--- NOTE | 2020-10-21 12:45 | Internal Med Progress Note ---
SUBJECTIVE Subjective Patient information: Note initiated : 10/21/20 at 12:39 pm Service Date, if different from initiated Date: [] Patient: Sylvia Tucker 75 y/o F admitted on 10/20/20 for Detox. Chief Complaint: alcohol withdrawal Principal diagnosis: Alcohol use disorder; alcohol withdrawal Pertinent ROS: Patient denies chest pain, shortness of breath, abdominal pain, fever, chills. Patient admits to mild anxiety and has been experiencing nightmares but denies auditory, visual or tactile hallucinations. She reports v mai mild tremors. Patient denies any changes in appetite or bowel movements. Constitutional Vitals: Vital Signs Temp Pulse Resp BP Pulse Ox 97.6 F 62 18 130/61 96 10/21/20 07:52 10/21/20 07:52 10/21/20 07:52 10/21/20 07:52 10/21/20 07:52 Period Temp Pulse Resp BP Sys/Esqueda Pulse Ox Last 24 Hr 97.4 F-98.9 F 57-71 12-18 130-160/57-69 90-96 Intake and Output 10/20/20 10/21/20 10/21/20 21:59 05:59 13:59 Intake Total 735 571 3140 Output Total 1150 1000 200 Balance -350 -510 960 Weight 163 lb 8 oz Intake & Output: Intake & Output 10/20/20 10/21/20 10/21/20 21:59 05:59 13:59 Intake Total 450 593 0658 Output Total 1150 1000 200 Balance -350 -510 960 Weight 163 lb 8 oz Intake: IV 800 Sodium Chloride 0.9% 1,000 ml @ 800 50 mls/hr IV .Q20H [facility] Rx#: [id number] Oral 800 490 360 Output: Void Amount 1150 1000 200 Other: Meal Fruit cup Breakfast Percent of Meal Consumed 100% 100% Feeding Ability Independent Independent Urine Appearance Cloudy Clear Urine Color Bright Yellow Bright Yellow Urine Odor Normal # Voids 1 # Bowel Movements 1 Head Head exam: Present atraumatic and normal inspection Eye Eye exam: Present normal appearance ENT ENT exam: Present mucous membranes moist, normal exam and normal external ear exam Respiratory Respiratory exam: Present normal respiratory exam Cardiovascular Cardiovascular exam: Present normal rate and rhythm Neurological Exam Neurological exam: Present alert and oriented X3 Skin Skin exam: Present intact and warm OBJ DATA Labs CBC & Chem 7: 10/20/20 10:35 10/21/20 06:04 Labs: Abnormal Lab Results 10/21/20 10/20/20 10/20/20 06:04 10:35 10:35 RBC 3.85 L RDW 14.6 H BUN 25 H Phosphorus 4.7 H Total Protein 5.2 L Globulin 2.0 L Meds: Medications Acetaminophen (Tylenol) 650 mg PO Q4-6HP PRN; Protocol PRN Reason: Per Pain Protocol/Fever > 101 Last Admin: 10/21/20 09:43 Dose: 650 mg Documented by: Apixaban (Eliquis) 5 mg PO BID [facility] Last Admin: 10/21/20 08:53 Dose: 5 mg Documented by: Bisacodyl (Dulcolax) 10 mg IN Q2-3DAYS PRN PRN Reason: Constipation Chlordiazepoxide HCl (Librium) 25 mg PO DAILY [facility] Stop: 10/22/20 09:01 Chlordiazepoxide HCl (Librium) 25 mg PO Q12 [facility] Stop: 10/21/20 21:01 Last Admin: 10/21/20 08:53 Dose: 25 mg Documented by: Cyanocobalamin (Vitamin B-12) 1,000 mcg PO BID [facility] Stop: 10/25/20 09:01 Last Admin: 10/21/20 08:52 Dose: 1,000 mcg Documented by: Docusate Sodium (Colace) 100 mg PO BID [facility] Last Admin: 10/21/20 09:07 Dose: Not Given Documented by: Duloxetine HCl (Cymbalta) 30 mg PO DAILY [facility] Last Admin: 10/21/20 08:51 Dose: 30 mg Documented by: Folic Acid (Folic Acid) 1 mg PO DAILY [facility] Last Admin: 10/21/20 08:51 Dose: 1 mg Documented by: Furosemide (Lasix) 20 mg PO DAILYP PRN PRN Reason: Edema Gabapentin (Neurontin) 800 mg PO QID [facility] Last Admin: 10/21/20 08:52 Dose: 800 mg Documented by: Acetaminophen (Ofirmev) 650 mg in 65 mls @ 130 mls/hr IV Q6HP PRN; Protocol PRN Reason: Per Pain Protocol/Fever > 101 Magnesium Sulfate (Magnesium Sulfate) 2 gm in 50 mls @ 50 mls/hr IV UD PRN PRN Reason: MG = or < 1.7 Ipratropium [place] (Atrovent 0.06% Nasal Srpay) 1 spray TONY TID PRN PRN Reason: Congestion Iron Carb/Multivit/[place]/Folic Acid (Multivitamin W/Minerals) 1 tab PO DAILY [facility] Last Admin: 10/21/20 08:53 Dose: 1 tab Documented by: Levothyroxine Sodium (Synthroid) 100 mcg PO ACB [facility] Last Admin: 10/21/20 07:08 Dose: 100 mcg Documented by: Melatonin (Melatonin 3mg Tablet) 3 mg PO HSP PRN PRN Reason: Insomnia Last Admin: 10/20/20 21:09 Dose: 3 mg Documented by: Metoprolol Succinate (Toprol Xl) 25 mg PO DAILY [facility] Last Admin: 10/21/20 08:53 Dose: 25 mg Documented by: Omeprazole (Prilosec) 20 mg PO ACB [facility] Last Admin: 10/21/20 07:08 Dose: 20 mg Documented by: Ondansetron HCl (Zofran Odt) 4 mg SL Q4-6HP PRN; Protocol PRN Reason: Nausea And Vomiting Ondansetron HCl (Zofran) 4 mg IV Q4-6HP PRN; Protocol PRN Reason: Nausea And Vomiting Methenamine (Hippurate 1 Gm Tab) 1 dose PO BID [facility] Last Admin: 10/21/20 09:48 Dose: Not Given Documented by: Methylsulfonylmethan (e [Msm] 1,000 Mg Tab) 1 dose PO DAILY [facility] Last Admin: 10/21/20 09:48 Dose: Not Given Documented by: Polyethylene Glycol (Miralax) 17 gm PO DAILYP PRN PRN Reason: Constipation Potassium Chloride (Klor-Con) 40 meq PO DAILYP PRN PRN Reason: K+ < 3.5 Senna/Docusate Sodium (Senna Plus Tablet) 1 tab PO HS [facility] Last Admin: 10/20/20 21:09 Dose: Not Given Documented by: Sodium Chloride (Saline Flush) 10 ml IV Q8 [facility] Last Admin: 10/21/20 06:14 Dose: Not Given Documented by: Thiamine HCl (Vitamin B1) 100 mg PO DAILY [facility] Last Admin: 10/21/20 08:52 Dose: 100 mg Documented by: Trazodone HCl (Desyrel) 50 mg PO HSP PRN PRN Reason: Insomnia Last Admin: 10/20/20 22:43 Dose: 50 mg Documented by: A/P Assessment and plan (1) Alcohol withdrawal: Status: Acute Qualifiers: Complication of substance-induced condition: uncomplicated Qualified Code(s): F10.230 - Alcohol dependence with withdrawal, uncomplicated (2) Sedative hypnotic or anxiolytic dependence: Status: Acute (3) Alcohol use disorder, severe, dependence: Status: Acute (4) Generalized anxiety disorder: Status: Acute (5) Major depression, recurrent, chronic: Status: Acute Narrative A/P Narrative: Patient has been able to tolerate chlordiazepoxide and is currently on the taper. She has received a loading dose of 75 mg over the last 24 hours and we discussed continuing with the taper process. Patient CIWA score is 2. She appears to be comfortable and in no distress with no auditory, visual or tactile hallucinations and a very slight tremor noted. I did discuss with patient the importance of treatment following detoxification and patient is open to that. We discussed triggers and discussed the role of cognitive beh avioral therapy as well as medication assisted treatment. I did start patient on trazodone 50 mg as needed for difficulty sleeping and continue on that medication on as needed basis. I also reviewed results of her lab work with her. I have also coordinated care with patient's . Coordinated care with nursing and hospitalist staff. Continue close follow-up daily Time Spent With Patient Time: Total time spent is greater than 50% in coordination of care (as documented) at patient's floor/unit and/or counseling patient: Total time spent with greater than 50% in coordination of care (as documented) at patient's floor/unit and/or counseling patient:: 25 - 35 minutes QUALITY VTE Deep Vein Thrombosis/Pulmonary Embolism Present on Admission: No
[2020-10-21] MEDS: SENNOSIDES/DOCUSATE SODIUM 1 TAB TABLET PO SCH (19:53)
[2020-10-21] MEDS: traZODone HCL 50 MG TABLET PO PRN (21:36)
[2020-10-21] MEDS: MELATONIN 3 MG TABLET PO PRN (22:49)
--- NOTE | 2020-10-22 07:48 | Internal Med Progress Note ---
SUBJECTIVE Subjective Patient information: Note initiated : 10/22/20 at 7:47 am Service Date, if different from initiated Date: [] Patient: Sylvia Tucker a 75 y/o F admitted on 10/20/20 for Detox. Chief Complaint: [] Principal diagnosis: Alcohol use disorder; alcohol withdrawal Interval history: History of present illness: Ms. Tucker is a 75 year old F who presents to the hospital for admission following referral from behavioral health services for excessive alcohol use, benzodiazepine dependence and detoxification. Patient has been drinking for a while and uses benzodiazepine along with alcohol. She expresses intent to quit drinking. Per history from behavioral health chart she will usually get her alcohol and hide from her who is unaware of her alcohol dependence. She was evaluated by behavioral health services and recommended inpatient detoxification for benzodiazepine and alcohol dependence. Hospitalist service was requested for admission to facilitate alcohol detox While as inpatient. Patient carries a known history of alcoholism/anxiety/neuropathy/RAD/DVT/HTN and was hospitalized in 2018 for ARDS/pneumonia requiring mechanical ventilation. She also carries a history of recurrent UTI with ESBL E. coli. She has not had a hospitalization since then and has been following up with primary care physician. She lives with her During today's visit patient is alert and oriented. She denies active distress. Does not demonstrate any signs of anxiety/apprehension or psychomotor ag itation. Denies fever or sick contacts. Denies diarrhea dysuria joint pain or rash. 10/21 Mild headache. Otherwise no new complaints or overnight events. 10/22 Patient doing well. No overnight event or new complaints. Review of Systems: denies fever/chills/nausea/vomiting/chest or abdominal sadia n/cough/dyspnea/diarrhea. Otherwise see above. Constitutional Vitals: Vital Signs Temp Pulse Resp BP Pulse Ox 97.6 F 59 L 12 125/63 90 10/22/20 04:15 10/22/20 04:15 10/22/20 04:15 10/22/20 04:15 10/22/20 04:15 Period Temp Pulse Resp BP Sys/Esqueda Pulse Ox Last 24 Hr 97.0 F-97.6 F 59-71 12-18 124-149/54-73 90-96 Intake and Output 10/21/20 10/22/20 10/22/20 21:59 05:59 13:59 Intake Total 960 600 Output Total 500 Balance 460 600 Weight 74.162 kg 76.476 kg Intake & Output: Intake & Output 10/21/20 10/22/20 10/22/20 21:59 05:59 13:59 Intake Total 960 600 Output Total 500 Balance 460 600 Weight 74.162 kg 76.476 kg Intake: Oral 960 600 Output: Void Amount 500 Other: Urine Color Dark Yellow Urine Odor Normal Stool Consistency Dry and Hard # Voids 1 # Bowel Movements 1 Exam: General: Alert, Awake, No acute Distress Eyes/N/T: EOMI, Head/Neck: neck supple, CV: RRR, No murmurs, Pulm: Clear b/l, no wheezing/rhonchi/rales Abd: soft, nontender, +BS x4 Ext: no clubbing/cyanosis/edema Neuro: Alert, no focal deficits, moves all extremities, Skin: warm/dry OBJ DATA Labs CBC & Chem 7: 10/20/20 10:35 10/21/20 06:04 Labs: Abnormal Lab Results 10/21/20 10/20/20 10/20/20 06:04 10:35 10:35 RBC 3.85 L RDW 14.6 H BUN 25 H Phosphorus 4.7 H Total Protein 5.2 L Globulin 2.0 L Meds: Medications Acetaminophen (Tylenol) 650 mg PO Q4-6HP PRN; Protocol PRN Reason: Per Pain Protocol/Fever > 101 Last Admin: 10/21/20 09:43 Dose: 650 mg Documented by: Apixaban (Eliquis) 5 mg PO BID [facility] Last Admin: 10/21/20 19:52 Dose: 5 mg Documented by: Bisacodyl (Dulcolax) 10 mg [place] Q2-3DAYS PRN PRN Reason: Constipation Chlordiazepoxide HCl (Librium) 25 mg PO DAILY [facility] Stop: 10/22/20 09:01 Cyanocobalamin (Vitamin B-12) 1,000 mcg PO BID [facility] Stop: 10/25/20 09:01 Last Admin: 10/21/20 19:52 Dose: 1,000 mcg Documented by: Docusate Sodium (Colace) 100 mg PO BID [facility] Last Admin: 10/21/20 21:36 Dose: 100 mg Documented by: Duloxetine HCl (Cymbalta) 30 mg PO DAILY [facility] Last Admin: 10/21/20 08:51 Dose: 30 mg Documented by: Folic Acid (Folic Acid) 1 mg PO DAILY [facility] Last Admin: 10/21/20 08:51 Dose: 1 mg Documented by: Furosemide (Lasix) 20 mg PO DAILYP PRN PRN Reason: Edema Gabapentin (Neurontin) 800 mg PO QID [facility] Last Admin: 10/21/20 19:52 Dose: 800 mg Documented by: Acetaminophen (Ofirmev) 650 mg in 65 mls @ 130 mls/hr IV Q6HP PRN; Protocol PRN Reason: Per Pain Protocol/Fever > 101 Magnesium Sulfate (Magnesium Sulfate) 2 gm in 50 mls @ 50 mls/hr IV UD PRN PRN Reason: MG = or < 1.7 Ipratropium [place] (Atrovent 0.06% Nasal Srpay) 1 spray TONY TID PRN PRN Reason: Congestion Iron Carb/Multivit/[place]/Folic Acid (Multivitamin W/Minerals) 1 tab PO DAILY [facility] Last Admin: 10/21/20 08:53 Dose: 1 tab Documented by: Levothyroxine Sodium (Synthroid) 100 mcg PO ACB [facility] Last Admin: 10/21/20 07:08 Dose: 100 mcg Documented by: Melatonin (Melatonin 3mg Tablet) 3 mg PO HSP PRN PRN Reason: Insomnia Last Admin: 10/21/20 22:49 Dose: 3 mg Documented by: Metoprolol Succinate (Toprol Xl) 25 mg PO DAILY [facility] Last Admin: 10/21/20 08:53 Dose: 25 mg Documented by: Omeprazole (Prilosec) 20 mg PO ACB [facility] Last Admin: 10/21/20 07:08 Dose: 20 mg Documented by: Ondansetron HCl (Zofran Odt) 4 mg SL Q4-6HP PRN; Protocol PRN Reason: Nausea And Vomiting Ondansetron HCl (Zofran) 4 mg IV Q4-6HP PRN; Protocol PRN Reason: Nausea And Vomiting Methenamine (Hippurate 1 Gm Tab) 1 dose PO BID [facility] Last Admin: 10/21/20 19:53 Dose: 1 dose Documented by: Methylsulfonylmethan (e [Msm] 1,000 Mg Tab) 1 dose PO DAILY [facility] Last Admin: 10/21/20 09:48 Dose: Not Given Documented by: Polyethylene Glycol (Miralax) 17 gm PO DAILYP PRN PRN Reason: Constipation Potassium Chloride (Klor-Con) 40 meq PO DAILYP PRN PRN Reason: K+ < 3.5 Senna/Docusate Sodium (Senna Plus Tablet) 1 tab PO HS [facility] Last Admin: 10/21/20 19:53 Dose: Not Given Documented by: Thiamine HCl (Vitamin B1) 100 mg PO DAILY [facility] Last Admin: 10/21/20 08:52 Dose: 100 mg Documented by: Trazodone HCl (Desyrel) 50 mg PO HSP PRN PRN Reason: Insomnia Last Admin: 10/21/20 21:36 Dose: 50 mg Documented by: A/P Narrative A/P Narrative: A: *Severe alcohol use disorder: *Benzodiazepine dependence: *HTN: home dose metoprolol *GERD: continue PPI *Neuropathy: continue gabapentin *Reactive disease: continue bronchodilators *Depression/anxiety: *Afib: on apixaban *Recurrent ESBL UTI: on methenamine *Hypothyroidism: continue thyroxine Plan: -Alcohol withdrawal/benzodiazepine dependence detoxification management per Dr. Corona behavioral health specialist. -Pre-existing medical condition management as above -Crystalloid/nutrition support/multivitamin and electrolyte replacement -ppx: home apixaban full code Time Spent With Patient Time: Total time spent is greater than 50% in coordination of care (as documented) at patient's floor/unit and/or counseling patient: QUALITY VTE Deep Vein Thrombosis/Pulmonary Embolism Present on Admission: No
[2020-10-22] MEDS: OMEPRAZOLE 20 MG CAPSULE PO SCH (08:07)
[2020-10-22] MEDS: LEVOTHYROXINE 100 MCG TABLET PO SCH (08:07)
[2020-10-22] MEDS: DOCUSATE SODIUM 100 MG CAPSULE PO SCH (08:08)
[2020-10-22] MEDS: THIAMINE 100 MG TABLET PO SCH (08:27)
[2020-10-22] MEDS: MULTIVIT,THER IRON,CA,FA & MIN 1 TABLET PO SCH (08:28)
[2020-10-22] MEDS: METOPROLOL SUCCINATE 25 MG TAB.XL.24H PO SCH (08:28)
[2020-10-22] MEDS: DULoxetine 30 MG CAPSULE PO SCH (08:28)
[2020-10-22] MEDS: APIXABAN 5 MG TABLET PO SCH (08:28)
[2020-10-22] MEDS: FOLIC ACID 1 MG TABLET PO SCH (08:28)
[2020-10-22] MEDS: GABAPENTIN 400 MG CAPSULE PO SCH ×2 (08:29→12:44)
[2020-10-22] MEDS: CYANOCOBALAMIN (VITAMIN B-12) 500 MCG TABLET PO SCH (08:29)
[2020-10-22] MEDS: METHYLSULFONYLMETHANE 1000 MG PO SCH (08:49)
[2020-10-22] MEDS ORDERED: chlordiazePOXIDE 25 MG CAPSULE PO SCH (09:00)
[2020-10-22] MEDS ORDERED: cefTRIAXone 1 GM VIAL IM SCH (10:00)
--- NOTE | 2020-10-22 10:12 | Discharge Summary ---
Discharge Provider Provider Patient information: Note initiated : 10/22/20 at 10:09 am Service Date, if different from initiated Date: [] Patient: Sylvia Tucker 75 y/o F admitted on 10/20/20 for Detox. Chief Complaint: [] Date of admission: 10/20/20 09:29 Discharge date: 10/22/20 Primary care physician: Mini Man Consults: 10/20/20 09:52 Consult to Physician [CONS] Routine Comment: Consulting Provider: Agnes Corona Reason For Exam: Physician to Consult Discharge Meds Discharge Medications Home Medications omeprazole 20 mg PO ACB 09/08/15 [History Confirmed 10/20/20 Last Taken 10/20/20 07:00] ascorbic acid (vitamin C) 1,000 mg PO DAILY 01/26/17 [History Confirmed 10/20/20 Last Taken 01/25/17 09:00] calcium carbonate-vitamin D3 600 mg PO DAILY 01/26/17 [History Confirmed 10/20/20 Last Taken 10/19/20 23:00] furosemide 20 mg PO PRN PRN 01/26/17 [History Confirmed 10/20/20 Last Taken 01/25/17 09:00] levothyroxine 100 mcg PO QAMAC 01/26/17 [History Confirmed 10/20/20 Last Taken 10/20/20 09:00] multivitamin 1 each PO DAILY 01/26/17 [History Confirmed 10/20/20 Last Taken 10/18/20 17:00] vitamin B complex 1 cap PO DAILY 01/26/17 [History Confirmed 10/20/20 Last Taken 10/20/20 09:00] alpha lipoic acid 300 mg capsule 600 mg PO QDAY cap 08/10/17 [History Confirmed 10/20/20 Last Taken Unknown] duloxetine 60 mg capsule,delayed release 60 mg PO QDAY 08/10/17 [History Confirmed 10/20/20 Last Taken 10/19/20 23:00] ipratropium bromide 42 mcg (0.06 %) nasal spray 1 spray INTRANASAL TID PRN ml 08/10/17 [History Confirmed 10/20/20 Last Taken 10/20/20 09:00] methylsulfonylmethane 1,000 mg capsule 1,000 mg PO DAILY cap 08/10/17 [History Confirmed 10/20/20 Last Taken 10/19/20 23:00] vitamin E 400 unit capsule 400 unit PO QDAY 08/10/17 [History Confirmed 10/20/20 Last Taken 10/19/20 23:00] apixaban 2.5 mg tablet 5 mg PO BID 12/07/18 [History Confirmed 10/20/20 Last Taken 10/20/20] gabapentin 600 mg tablet 800 mg PO QID tab 12/07/18 [History Confirmed 10/20/20 Last Taken 10/20/20 07:00] methenamine hippurate 1 gram tablet 1 g PO BID 90 Days #180 tab 06/24/20 [Rx Confirmed 10/20/20 Last Taken 10/20/20 09:00] cranberry 400 mg PO BID 07/23/20 [History Confirmed 10/20/20 Last Taken 10/20/20 09:00] metoprolol succinate 25 mg PO QDAY 07/23/20 [History Confirmed 10/20/20 Last Taken 10/19/20 23:00] ciprofloxacin HCl 500 mg PO Q12H #6 tab 10/22/20 [Rx Last Taken Unknown] COURSE Hospital Course Hospital course: History of present illness: Ms. Tucker is a 75 year old F who presents to the hospital for admission following referral from behavioral health services for excessive alcohol use, benzodiazepine dependence and detoxification. Patient has been drinking for a while and uses benzodiazepine along with alcohol. She expresses intent to quit drinking. Per history from behavioral health chart she will usually get her alcohol and hide from her who is unaware of her alcohol dependence. She was evaluated by behavioral health services and recommended inpatient detoxification for benzodiazepine and alcohol dependence. Hospitalist service was requested for admission to facilitate alcohol detox While as inpatient. Patient carries a known history of alcoholism/anxiety/neuropathy/RAD/DVT/HTN and was hospitalized in 2018 for ARDS/pneumonia requiring mechanical ventilation. She also carries a history of recurrent UTI with ESBL E. coli. She has not had a hospitalization since then and has been following up with primary care physician. She lives with her During today's visit patient is alert and oriented. She denies active distress. Does not demonstrate any signs of anxiety/apprehension or psychomotor agitation. Denies fever or sick contacts. Denies diarrhea dysuria joint pain or rash. 10/21 Mild headache. Otherwise no new complaints or overnight events. 10/22 Patient doing well. No overnight event or new complaints. A: *Severe alcohol use disorder: *Benzodiazepine dependence: *HTN: home dose metoprolol *GERD: continue PPI *Neuropathy: continue gabapentin *Reactive disease: continue bronchodilators *Depression/anxiety: *Afib: on apixaban *Recurrent ESBL UTI: on methenamine *UTI (e.coli): pansensitive e. coli *Hypothyroidism: continue thyroxine Discharge diagnosis: Alcohol and benzodiazepine detoxification UTI Secondary discharge diagnosis: Hypertension GERD neuropathy depression anxiety Atrial fibrillation history of ESBL UTI hypothyroidism Time Spent with Patient Time attestation: Total time spent providing and/or coordinating discharge services: Time spent: Greater than 30 minutes EXAM Constitutional Vitals: Temp Pulse Resp BP Pulse Ox 97.7 F 64 20 135/65 95 10/22/20 08:00 10/22/20 08:05 10/22/20 08:05 10/22/20 08:00 10/22/20 08:05 Discharge Plan Patient/Caregiver Discharge Instructions Activity: increase activity as tolerated Diet: Regular Diet Prescriptions: New ciprofloxacin HCl 500 mg tablet 500 mg PO Q12H Qty: 6 RF: 0 Continued methenamine hippurate 1 gram tablet 1 g PO BID 90 Days Qty: 180 RF: 11 alpha lipoic acid 300 mg capsule 600 mg PO QDAY RF: 0 duloxetine [Cymbalta] 60 mg capsule,delayed release(DR/EC) 60 mg PO QDAY RF: 0 ipratropium bromide 0.06 % spray,non-aerosol 1 spray INTRANASAL TID PRN (Reason: Shortness Of Breath) RF: 0 methylsulfonylmethane [MSM] 1,000 mg capsule 1,000 mg PO DAILY RF: 0 vitamin E 400 unit capsule 400 unit PO QDAY RF: 0 omeprazole 20 MG capsule 20 mg PO ACB RF: 0 levothyroxine 88 MCG tablet 100 mcg PO QAMAC RF: 0 furosemide 20 MG tablet 20 mg PO PRN PRN (Reason: Edema) RF: 0 multivitamin 1 EACH tablet 1 each PO DAILY RF: 0 ascorbic acid (vitamin C) 1,000 MG tablet 1,000 mg PO DAILY RF: 0 vitamin B complex 1 CAP capsule 1 cap PO DAILY RF: 0 calcium carbonate-vitamin D3 1 EACH tablet 600 mg PO DAILY RF: 0 gabapentin 600 mg tablet 800 mg PO QID RF: 0 cranberry 400 mg Capsule 400 mg PO BID RF: 0 metoprolol succinate 25 mg Capsule,Sprinkle,Er 24hr 25 mg PO QDAY RF: 0 Eliquis 2.5 mg tablet 5 mg PO BID RF: 0 Follow Up Plan Follow up with: Agnes Corona DO [Physician] - Patient Disposition: Home, Self-Care Discharge Orders: Discharge Order (Routine); Ordered 10/22/20 Ordered By: Shan Valadez [facility] Deep Vein Thrombosis/Pulmonary Embolism Present on Admission: No
--- NOTE | 2020-10-22 10:22 | Behavioral Health Consult ---
HPI History of Present Illness Patient information: Note initiated : 10/22/20 at 10:12 am Service Date, if different from initiated Date: [] Patient: Sylvia Tucker a 75 y/o F admitted on 10/20/20 for Detox. Chief Complaint:alcohol withdrawal History of present illness: Ms. Tucker is a 75 year old F who is experiencing alcohol withdrawal. Patient states that she has been experiencing heart palpitations 1 day ago which have now resolved and denies chest pain, shortness of breath or abdominal pain. Patient is concerned about urine drug test culture being positive for E. coli but she denies dysuria, urinary frequency or urgency. Denies fever, chills, back pain. Patient states that her sleep has improved since I started her on trazodone and she reports struggling with sleep for the last 4 years. She does admit to mild anxiety but denies depression. Denies auditory, visual or tactile hallucinations. Patient does admit to mild cravings for alcohol. Patient states that she is committed to staying sober but is concerned about being able to do that long-term. Constitutional Constitutional: Absent anorexia, chills, daytime sleepiness, excessive sweating, fatigue, fever(s), frequent falls, headache(s), increased appetite, lethargy, malaise, night sweats, snoring, stops breathing during sleep, weakness, weight gain and weight loss Cardiovascular Cardiovascular: Absent chest pain, diaphoresis, dyspnea, dyspnea on exertion, edema, irregular heart rhythm, radiating jaw, neck or arm pain, leg edema, lightheadedness, palpatations, paroxysmal nocturnal dyspnea, pedal edema, radiating pain, rapid heart rate, slow heart rate and syncope Respiratory Respiratory: Absent cough, dyspnea, hemoptysis, dyspnea on exertion, wheezing, stridor, pain on inspirtation, chest congestion, excessive phlegm production and pain with cough Psychiatric Psychiatric: Present anxiety and cravings; Absent auditory hallucinations, conf usion, depression, hallucinations, hopelessness, irritability, memory loss, mood swings, panic attacks, paranoia, suicidal ideation and visual hallucinations PFSH PFSH All Active Problems (Updated 10/22/20 @ 10:22 by Agnes Corona DO) Insomnia (Acute) Alcohol withdrawal (Acute) Sedative hypnotic or anxiolytic dependence (Acute) Alcohol use disorder, severe, dependence (Acute) Generalized anxiety disorder (Acute) Major depression, recurrent, chronic (Acute) Hypoxia (Acute) RLL pneumonia (Acute) Elevated procalcitonin (Acute) Candidal intertrigo (Chronic) Vaginal yeast infection (Chronic) Stress incontinence (Chronic) Cyanosis (Chronic) Lower extremity weakness (Chronic) Knee crepitus (Chronic) Vulvar atrophy (Chronic) Vulvitis (Chronic) Wound of left leg (Chronic) Tenosynovitis (Chronic) Simple bruising (Chronic) Peptic ulcer (Chronic) Colon polyp (Chronic) Microcalcifications of the breast (Chronic) Lumbar strain (Chronic) Vaginal itching (Chronic) Pelvic fracture (Chronic) Nausea (Chronic) History of low back pain (Chronic) Hypercholesterolemia (Chronic) Abdominal pain (Chronic) Flank pain (Chronic) Fatty liver (Chronic) Dysuria (Chronic) Drug therapy changed (Chronic) Diverticulosis (Chronic) [place] esophagus (Chronic) Vasomotor rhinitis (Chronic) Urinary urgency (Chronic) Stress incontinence, female (Chronic) Pyuria (Chronic) Neuropathic pain (Chronic) Lymphocytic colitis (Chronic) Liver disease, alcoholic (Chronic) Hypothyroidism (Chronic) Hyperlipidemia (Chronic) Hormone replacement therapy (postmenopausal) (Chronic) Fibroid uterus (Chronic) Esophagitis, reflux (Chronic) Diarrhea (Chronic) Depression (Chronic) Anemia in chronic illness (Chronic) Alcoholism in recovery (Chronic) Abnormal laboratory test (Chronic) Muscle weakness (Chronic) Difficulty walking (Chronic) Limb weakness (Chronic) Numbness and tingling (Chronic) Arthralgia (Chronic) Incontinence (Chronic) Pelvic pain (Chronic) Neuropathy (Chronic) Pain on intercourse (Chronic) Groin rash (Chronic) Acid reflux (Chronic) Hypertension (Chronic) Insomnia (Chronic) Anemia (Chronic) Allergic rhinitis (Chronic) Anxiety (Chronic) Cellulitis (Chronic) UTI (urinary tract infection) (Chronic) Delirium (Chronic) Acute kidney failure (Chronic) Dehydration (Chronic) Elevated liver enzymes (Chronic) Septic shock (Chronic) Medical History (Updated 10/22/20 @ 10:22 by Agnes Corona DO) Abdominal pain (Chronic) Abnormal laboratory test (Chronic) Acid reflux (Chronic) Acute kidney failure (Chronic) Alcoholism in recovery (Chronic) Allergic rhinitis (Chronic) Anemia (Chronic) Anemia in chronic illness (Chronic) Anxiety (Chronic) Arthralgia (Chronic) [place]azueta esophagus (Chronic) Candidal intertrigo (Chronic) Cellulitis (Chronic) Colon polyp (Chronic) Cyanosis (Chronic) toes and feet Dehydration (Chronic) Delirium (Chronic) Depression (Chronic) Diarrhea (Chronic) Difficulty walking (Chronic) Diverticulosis (Chronic) Drug therapy changed (Chronic) Dysuria (Chronic) Elevated liver enzymes (Chronic) Esophagitis, reflux (Chronic) Fatty liver (Chronic) Fibroid uterus (Chronic) Flank pain (Chronic) Groin rash (Chronic) History of low back pain (Chronic) Hormone replacement therapy (postmenopausal) (Chronic) Hypercholesterolemia (Chronic) Hyperlipidemia (Chronic) Hypertension (Chronic) Hypothyroidism (Chronic) Incontinence (Chronic) Insomnia (Chronic) Knee crepitus (Chronic) bilateral Limb weakness (Chronic) Liver disease, alcoholic (Chronic) Lower extremity weakness (Chronic) bilateral Lumbar strain (Chronic) Lymphocytic colitis (Chronic) Microcalcifications of the breast (Chronic) Muscle weakness (Chronic) Nausea (Chronic) Neuropathic pain (Chronic) Neuropathy (Chronic) Numbness and tingling (Chronic) Pain on intercourse (Chronic) Pelvic fracture (Chronic) Pelvic pain (Chronic) Peptic ulcer (Chronic) Pyuria (Chronic) Septic shock (Chronic) Simple bruising (Chronic) Stress incontinence (Chronic) Stress incontinence, female (Chronic) Tenosynovitis (Chronic) left thumb Urinary urgency (Chronic) UTI (urinary tract infection) (Chronic) Vaginal itching (Chronic) Vaginal yeast infection (Chronic) Vasomotor rhinitis (Chronic) Vulvar atrophy (Chronic) Vulvitis (Chronic) Wound of left leg (Chronic) Surgical History History of appendectomy (Chronic) History of breast biopsy (Chronic) Percutan needle core History of breast surgery (Chronic) puncture aspiration of cyst History of cataract surgery (Chronic) bilateral 08/2013 and 09/2013 at [facility] in [place] History of colonoscopy (Chronic 01/19/12) found hyperplastic polyps and microscopic colitis also on biopsies History of esophagogastroduodenoscopy (EGD) (Chronic) Family History (Updated 08/27/20 @ 12:55 by Sherrill Valenzuela LPN) Family/Other Hypertension Stroke Fibromyalgia Breast cancer Cancer Colon cancer Dementia Osteoporosis of forearm Glaucoma Uncle Alcoholism /alcohol abuse Niece Alcoholism /alcohol abuse Social History (Updated 08/27/20 @ 12:48 by Sherrill Valenzuela LPN) marital status: occupational status: retired smoking status: Former smoker quit date: 10/03/09 pack-years: 30 alcohol intake frequency: 2+ drinks per day substance use type: does not use MEDS/ALLERGIES Home Medications and Allergies Home Medications Medication Instructions Recorded Confirmed Type omeprazole 20 mg PO ACB 09/08/15 10/20/20 History ascorbic acid (vitamin C) 1,000 mg PO DAILY 01/26/17 10/20/20 History calcium carbonate-vitamin D3 600 mg PO DAILY 01/26/17 10/20/20 History furosemide 20 mg PO PRN PRN 01/26/17 10/20/20 History levothyroxine 100 mcg PO QAMAC 01/26/17 10/20/20 History multivitamin 1 each PO DAILY 01/26/17 10/20/20 History vitamin B complex 1 cap PO DAILY 01/26/17 10/20/20 History alpha lipoic acid 300 mg capsule 600 mg PO QDAY cap 08/10/17 10/20/20 History duloxetine 60 mg capsule,delayed 60 mg PO QDAY 08/10/17 10/20/20 History release ipratropium bromide 42 mcg (0.06 1 spray INTRANASAL TID PRN ml 08/10/17 10/20/20 History %) nasal spray methylsulfonylmethane 1,000 mg 1,000 mg PO DAILY cap 08/10/17 10/20/20 History capsule vitamin E 400 unit capsule 400 unit PO QDAY 08/10/17 10/20/20 History apixaban 2.5 mg tablet 5 mg PO BID 12/07/18 10/20/20 History gabapentin 600 mg tablet 800 mg PO QID tab 12/07/18 10/20/20 History methenamine hippurate 1 gram tablet 1 g PO BID 90 Days #180 tab 06/24/20 10/20/20 Rx cranberry 400 mg PO BID 07/23/20 10/20/20 History metoprolol succinate 25 mg PO QDAY 07/23/20 10/20/20 History ciprofloxacin HCl 500 mg PO Q12H #6 tab 10/22/20 Rx Allergies Allergy/AdvReac Type Severity Reaction Status Date / Time hydrochlorothiazide Allergy Mild Rash Verified 10/20/20 10:43 Paroxetine [From Paxil] Allergy Unknown Unknown Verified 09/04/20 15:18 codeine AdvReac Intermediate Nausea Verified 09/04/20 15:18 Physical Examination Vital Signs Vital signs: Temp Pulse Resp BP Pulse Ox 97.7 F 64 20 135/65 95 10/22/20 08:00 10/22/20 08:05 10/22/20 08:05 10/22/20 08:00 10/22/20 08:05 Constitutional General appearance: no acute distress and alert Respiratory Effort: normal Auscultation: bilateral: clear Percussion: bilateral: not dull Cardiovascular Cardiovascular: regular rate and rhythm Gastrointestinal Gastrointestinal: normoactive bowel sounds Extremities Extremities: no cyanosis, no edema, pulses normal and no ischemia or petechiae Neurologic Neurological: normal mental status, non-focal exam, pupils equal and round, CN II-XII normal and motor strength normal and symmetric Psychiatric Psychiatric: anxious Results Laboratory Findings CBC and BMP: 10/20/20 10:35 10/21/20 06:04 Abnormal lab findings: Abnormal Labs 10/20/20 10/20/20 10/21/20 10:35 10:35 06:04 RBC 3.85 L RDW 14.6 H BUN 25 H Phosphorus 4.7 H Total Protein 5.2 L Globulin 2.0 L Microbiology: Microbiology 10/20/20 12:25 Urine - Clean Void Mid-Stream Urine Culture - Final Escherichia coli A/P Assessment and plan (1) Alcohol withdrawal: Status: Acute Qualifiers: Complication of substance-induced condition: uncomplicated Qualified Code(s): F10.230 - Alcohol dependence with withdrawal, uncomplicated (2) 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 Tremors have resolved and patient is still exhibiting mild anxiety as well as cravings. I discussed with her the importance of avoiding any and all use of alcohol and worked on addressing triggers. Patient states that she is eliminating all alcohol use from her home and we discussed medication assisted treatment with naltrexone and discussed risks versus benefits. Patient agrees to start the medication despite the risk of medication induced hepatitis as well as depression. In addition I am coordinating care with patient's primary care provider Dr. Man and will discontinue triazolam or any other benzodiazepine medications moving forward. I provided extensive education for patient about the combination of benzodiazepines and alcohol resulting not only in adverse effects on the disease of addiction but also on her health resulting in potential overdose . Patient expressed agreement and understanding. We also discussed the importance of treatment and patient agrees to referral to [facility]. I also coordinated care with and recommend that patient be discharged this afternoon or this evening. We will arrange for close follow-up with me in 1 week. I also reviewed UA results with the patient and it is pending sensitivity for E. coli. Patient will receive treatment following the outcome of sensitivity of her UA. Time Spent With Patient Time: Total time spent is greater than 50% in coordination of care (as documented) at patient's floor/unit and/or counseling patient: Total time spent with greater than 50% in coordination of care (as documented) at patient's floor/unit and/or counseling patient:: 25 - 35 minutes
[2020-10-22] MEDS ORDERED: chlordiazePOXIDE 25 MG CAPSULE PO ONE (11:13)
== END 2020-10-22 14:36 | disposition home or self-care (01) | DRG 897 ==
LOC: MEDSUR 09:29
PROVIDERS: ADMIT Internal Medicine; ATTEND Internal Medicine